=== PATIENT | female | born 1935 | race Caucasian/White ===

== ENCOUNTER 2016-10-19 11:19 | Day surgery (SDC) | payer MEDICARE ==
[2016-10-18 11:41] VITALS: BMI 21.4
[~2016-10-19 11:19] MED LIST: LACTATED RINGERS 1,000 ML IV SCH
[2016-10-19] MEDS ORDERED: LIDOCAINE 1% 20 ML VIAL (10MG/ML) FOR IV START INTRADERMA ONE (11:54)
[2016-10-19] MEDS ORDERED: ATROPINE SULFATE 0.4 MG/ML 1 ML VIAL IM ONE (11:55)
[2016-10-19 12:05] LABS: Glucose,Whole Blood 125 mg/dL (75-99)
[2016-10-19] MEDS ORDERED: LIDOCAINE 2% (PF) 20 MG/ML 10ML INHALATION STA (12:15)
[2016-10-19] MEDS ORDERED: ALBUTEROL NEBULIZED 2.5 MG/3 ML INHALATION STA (12:20)
[2016-10-19] MEDS ORDERED: LIDOCAINE 1% INJ 10MG/ML (20 ML MDV) ONE (12:37)
[2016-10-19] MEDS ORDERED: PROPOFOL 10 MG/ML 20 ML VIAL IV ONE (12:37)
[2016-10-19] MEDS ORDERED: LIDOCAINE 2% SYG (PF) 100 MG/5 ML MISCELLANE ONE (12:55)
[2016-10-19 13:12] VITALS: TEMP 98.2
[2016-10-19] MEDS ORDERED: LACTATED RINGERS 1,000 ML IV ONE (14:35)
[2016-10-19 14:48] VITALS: PULSE 62; RESP 16
[2016-10-19 15:07] VITALS: BP 122/64
[2016-10-19 15:17] LABS: Glucose,Whole Blood 97 mg/dL (75-99)
--- NOTE | 2016-10-20 08:42 | PCN ---
PROCEDURE NOTE PREOP DIAGNOSIS: Recurrent Pseudomonas pneumonia, rule out [place] syndrome. POSTOP DIAGNOSIS: Recurrent Pseudomonas pneumonia, rule out [place] syndrome. Procedure was done by Dr. Vegas and Dr. Amador. PROCEDURE: Bronchoscopy, airway examination, therapeutic lavage and BAL right middle lobe. There was universal time out. There was informed consent. The procedure was done in room #2. The BREASTER provided general anesthesia and unconscious sedation. After the patient was adequately sedated and being fully monitored, the bronchoscope was inserted through the right nostril. It passed through the right nasopharynx into the oropharynx. The hypopharynx was identified and topicalized. Some secretions were noted to be pooling in the hypopharynx. The anterior commissure, true cords, false cords, arytenoids, piriform sinuses, right and left vallecula, epiglottis and piriform sinuses, right, left epiglottis and the vallecula all appear normal. After topicalization, bronchoscope was passed through the glottic opening into the trachea. There were thick secretions noted throughout the trachea. They were yellow green in color. They were somewhat frothy. The trachea dandy was sharp. Right and left mainstem were topicalized. The right upper lobe and its 3 segments, the right middle lobe and its 2 segments, the right lower lobe and its 5 segments, the left upper lobe proper and its 2 segments, the lingual and its 2 segments and the left lower lobe are its 4 segments all have similar findings of diffuse moderate bronchitis. There was mucosal friability, hyperemia and erythema. Thick secretions were noted throughout both lungs and involved all segments. They were suctioned with some difficulty. Next, the bronchoscope was wedged into the right middle lobe. BAL was done. The patient tolerated the procedure well. Additional secretions were removed and suctioned. The bronchoscope withdrawn. The patient will be recovered. Secretions will be sent to the laboratory for analysis. MMODL / IJN: [id number] /
== END 2016-10-19 15:28 | disposition home or self-care (01) ==
LOC: ORWHC2ENDO 11:19
PROVIDERS: ATTEND Internal Medicine Critical Care Medicine
DX: J18.9 Pneumonia, unspecified organism (principal); J44.9 Chronic obstructive pulmonary disease, unspecified; Z87.01 Personal history of pneumonia (recurrent); K21.9 Gastro-esophageal reflux disease without esophagitis; I48.91 Unspecified atrial fibrillation; G62.9 Polyneuropathy, unspecified; E11.9 Type 2 diabetes mellitus without complications; Z88.1 Allergy status to other antibiotic agents; Z88.5 Allergy status to narcotic agent; Z88.0 Allergy status to penicillin; Z88.2 Allergy status to sulfonamides; Z88.8 Allergy status to other drugs, medicaments and biological substances; Z79.82 Long term (current) use of aspirin; Z79.84 Long term (current) use of oral hypoglycemic drugs; Z79.51 Long term (current) use of inhaled steroids; Z79.899 Other long term (current) drug therapy; Z87.891 Personal history of nicotine dependence; Z90.710 Acquired absence of both cervix and uterus
CPT/HCPCS: 94640; 87798 ×4; 87496; 87498; 87529 ×2; 88108; 88305; 87252; 87502 ×2; 87070; 87205; 87116; 87102; 87077; 87186; 87206; 31624; J0461; J2001 ×3; J2704

== ENCOUNTER 2016-10-26 09:30 | Day surgery (SDC) | payer MEDICARE ==
[2016-10-26 10:21] VITALS: PULSE 65
[2016-10-26] MEDS ORDERED: LIDOCAINE 2% INJ 20 MG/ML SQ ONE (10:39)
[2016-10-26] MEDS ORDERED: MEROPENEM 1 GM in SODIUM CHLORIDE 0.9% 100 ML IVPB STA (10:47)
--- NOTE | 2016-10-26 11:18 | IR ---
PICC LINE PLACEMENT: HISTORY: Infection requiring long-term antibiotic therapy PROCEDURE: Ultrasound and fluoroscopic guidance of PICC line placement. COMPLICATIONS: None ANESTHESIA: 1. 1% Lidocaine locally. FINDINGS/TECHNIQUE: The procedure was explained to the patient. The risks, complications, benefits and alternatives were discussed and any questions were answered. Informed consent was obtained. The patient was placed supine on the fluoroscopic table and prepped and draped in the usual sterile critical access hospital ion. Utilizing a 21 gauge needle and sonographic and fluoroscopic guidance, access in the vein was achieved and there is placement of a 0.018 guidewire. The vein is patent. A 4-F sheath was placed o bandar the guidewire. The guidewire and dilator were removed and a 4-F. PICC line was placed through th e sheath with the tip at the level of the SVC. The sheath was removed, the catheter was flushed and sutured into position. The patient was stable throughout the procedure and remained stable upon disc harge from the Department of Radiology. The vein puncture was patent under ultrasound. A merida scale image was obtained to document patency of the vein punctured. All elements of the maximal barrier technique were utilized. FLUOROSCOPY TIME: 0.2 minutes, one image provided IMPRESSION: Successful PICC line placement under ultrasound and fluoroscopic guidance.
[2016-10-26 12:24] VITALS: BP 141/67; RESP 18
== END 2016-10-26 12:30 | disposition home or self-care (01) ==
LOC: CATHCVL 09:30
PROVIDERS: ATTEND Radiology Diagnostic Radiology
DX: J18.9 Pneumonia, unspecified organism (principal); B96.5 Pseudomonas (aeruginosa) (mallei) (pseudomallei) as the cause of diseases classified elsewhere; J44.9 Chronic obstructive pulmonary disease, unspecified; I48.91 Unspecified atrial fibrillation; E11.40 Type 2 diabetes mellitus with diabetic neuropathy, unspecified; Z87.891 Personal history of nicotine dependence; Z79.891 Long term (current) use of opiate analgesic; Z79.51 Long term (current) use of inhaled steroids; Z79.899 Other long term (current) drug therapy; Z88.1 Allergy status to other antibiotic agents; Z88.5 Allergy status to narcotic agent; Z88.0 Allergy status to penicillin; Z88.2 Allergy status to sulfonamides; Z88.8 Allergy status to other drugs, medicaments and biological substances; Z91.09 Other allergy status, other than to drugs and biological substances
CPT/HCPCS: 36569; 76937; 77001; C1751; C1769; J2001; J2185

== ENCOUNTER 2017-10-23 11:28 | Day surgery (SDC) | payer MEDICARE ==
[2017-10-23 11:58] VITALS: RESP 18; TEMP 98
[2017-10-23] MEDS ORDERED: LIDOCAINE 1% INJ 10MG/ML (20 ML MDV) ONE (12:20)
[2017-10-23] MEDS ORDERED: LIDOCAINE 1% INJ 10MG/ML (20 ML MDV) SQ ONE (12:37)
[2017-10-23 13:05] VITALS: BP 143/60; PULSE 65
--- NOTE | 2017-10-23 13:20 | IR ---
PICC LINE PLACEMENT: HISTORY: Infection requiring long-term antibiotic therapy PROCEDURE: Ultrasound and fluoroscopic guidance of PICC line placement. COMPLICATIONS: None ANESTHESIA: 1. 1% Lidocaine locally. FINDINGS/TECHNIQUE: The procedure was explained to the patient. The risks, complications, benefits and alternatives were discussed and any questions were answered. Informed consent was obtained. The patient was placed supine on the fluoroscopic table and prepped and draped in the usual sterile fash ion. Utilizing a 21 gauge needle and sonographic and fluoroscopic guidance, access in the right bas ilic vein was achieved and there is placement of a 0.018 guidewire. The vein is patent. A 4-F. sharma th was placed over the guidewire. The guidewire and dilator were removed and a 4-F. PICC line was pl aced through the sheath with the tip at the level of the SVC. The sheath was removed, the catheter w as flushed and sutured into position. The patient was stable throughout the procedure and remained s table upon discharge from the Department of Radiology. The vein puncture was patent under ultrasound. A merida scale image was obtained to document patency of the vein punctured. All elements of the maximal barrier technique were utilized. FLUOROSCOPY TIME: 0.2 minute, one image submitted IMPRESSION: Successful PICC line placement under ultrasound and fluoroscopic guidance.
== END 2017-10-23 13:13 | disposition home or self-care (01) ==
LOC: CATHCVL 11:28
PROVIDERS: ATTEND Radiology Diagnostic Radiology
DX: A49.8 Other bacterial infections of unspecified site (principal); E11.40 Type 2 diabetes mellitus with diabetic neuropathy, unspecified; I48.91 Unspecified atrial fibrillation; J44.9 Chronic obstructive pulmonary disease, unspecified; Z87.891 Personal history of nicotine dependence; Z79.891 Long term (current) use of opiate analgesic; Z79.51 Long term (current) use of inhaled steroids; Z79.899 Other long term (current) drug therapy; Z88.1 Allergy status to other antibiotic agents; Z88.5 Allergy status to narcotic agent; Z88.0 Allergy status to penicillin; Z88.2 Allergy status to sulfonamides; Z88.8 Allergy status to other drugs, medicaments and biological substances; Z91.09 Other allergy status, other than to drugs and biological substances
CPT/HCPCS: 36569; 76937; 77001; C1751; C1769; J2001

== ENCOUNTER → 2019-03-06 | Outpatient (CLI) | payer MEDICARE ==
[2019-03-06 19:30] LABS: Albumin 4.3 g/dL (3.80-4.90); Albumin/Globulin Ratio 1.48 (1.60-3.17); Anion Gap 10.4 mmol/L (4.00-12.00); BUN/Creat Ratio 24.55 Ratio (12.00-20.00); Calcium 9.5 mg/dL (8.7-10.3); Carbon Dioxide 24.6 mmol/L (21.6-31.8); Globulin 2.9 g/dL (1.6-3.3); Non-African American GFR(CKD) 45.7 (60.0-200.0); Potassium 4.9 mmol/L (3.5-5.5); Total Bilirubin 0.3 mg/dL (0.2-1.2); Total Protein 7.2 g/dL (6.2-8.2)
== END | disposition home or self-care (01) ==
LOC: LABWHC1 12:53
PROVIDERS: ATTEND Internal Medicine Endocrinology, Diabetes & Metabolism
DX: E11.65 Type 2 diabetes mellitus with hyperglycemia (principal)
CPT/HCPCS: 36415; 80053; 84681

== ENCOUNTER 2020-08-30 16:27 | Inpatient (IN) | payer MEDICARE ==
--- NOTE | 2020-08-30 17:35 | ED ---
General Adult HPI - General Chief complaint: Recheck/Abnormal Lab/Rx Stated complaint: Oncology Time Seen by Provider: 08/30/20 16:33 Source: patient, family, EMS, RN notes reviewed Mode of arrival: EMS Limitations: no limitations - History of Present Illness Initial comments: Patient is a pleasant 85-year-old female transferred from [facility] with concerns for obstructing pancreatic duct. Patient does have history of breast cancer and is on oral chemotherapy that was prescribed in [place]. Patient over the past 3 days has been vomiting and significant decreased appetite. Patient did have some abdominal discomfort this morning. Patient is feeling fine at this time and has no complaints. There was CAT scan done some concern for possible pancreatic duct obstruction or neoplasm. Patient does have history of previous cholecystectomy many years ago. - Related Data Home Medications Medication Instructions Recorded Confirmed Budesonide/Formoterol Fumarate 2 puff INHALATION BID 10/18/16 10/23/17 [Symbicort 160-4.5 Mcg Inhaler] Ipratropium-Albuterol Nebulize 3 ml INHALATION QID PRN 10/18/16 10/23/17 [Duoneb 0.5 mg-3 mg/3 ml Soln] traMADol HCL [Ultram] 50 mg PO Q6HR PRN 10/18/16 10/23/17 Clotrimazole [place] [Mycelex 10 mg MUCOUS MEM TID 10/23/17 10/23/17 [place]] Digoxin [Lanoxin] 125 mcg PO HS 10/23/17 10/23/17 Metoprolol Tartrate [Lopressor] 12.5 mg PO DAILY 10/23/17 10/23/17 [place]-3 Fatty Acids/Fish Oil [Fish 1 each PO DAILY 10/23/17 10/23/17 Oil 1,000 mg Softgel] Pantoprazole [Protonix] 40 mg PO DAILY 10/23/17 10/23/17 Polyethylene Glycol 3350 [Miralax] 17 gm PO DAILY 10/23/17 10/23/17 Allergies Allergy/AdvReac Type Severity Reaction Status Date / Time trimethoprim [From Bactrim] Allergy Unknown Unknown Verified 10/27/16 19:44 zolpidem [From Ambien] Allergy Unknown Unknown Verified 10/27/16 19:44 clindamycin Allergy Unknown Verified 10/27/16 19:44 duloxetine [From Cymbalta] Allergy Unknown Verified 10/27/16 19:44 fluoxetine [From Prozac] Allergy Unknown Verified 10/27/16 19:44 haloperidol Allergy Unknown Verified 10/27/16 19:44 hydroxyzine [From Vistaril] Allergy Unknown Verified 10/27/16 19:44 levofloxacin [From Levaquin] Allergy Unknown Verified 10/27/16 19:44 lorazepam [From Ativan] Allergy Unknown Verified 10/27/16 19:44 Penicillins Allergy Unknown Verified 10/27/16 19:44 pregabalin [From Lyrica] Allergy Unknown Verified 10/27/16 19:44 streptomycin Allergy Unknown Verified 10/27/16 19:44 Sulfa (Sulfonamide Allergy Unknown Verified 10/27/16 19:44 Antibiotics) sulfamethoxazole Allergy Unknown Verified 10/27/16 19:44 [From Bactrim] Review of Systems ROS Statement: Those systems with pertinent positive or pertinent negative responses have been documented in the HPI. ROS Other: All systems not noted in ROS Statement are negative. Constitutional: Denies: fever Eyes: Denies: eye pain ENT: Denies: ear pain Respiratory: Denies: dyspnea Cardiovascular: Denies: chest pain Gastrointestinal: Reports: abdominal pain, nausea, vomiting. Denies: diarrhea, constipation Genitourinary: Denies: dysuria Musculoskeletal: Denies: back pain Past Medical History Past Medical History: Atrial Fibrillation, COPD, Diabetes Mellitus, GERD/Reflux, Hypertension, Memory Impairment, Pneumonia Additional Past Medical History / Comment(s): hx. of frequent pneumonia-last time in September, back pain, neuropathy History of Any Multi-Drug Resistant Organisms: None Reported Past Surgical History: Cholecystectomy, Joint Replacement, Orthopedic Surgery, Tubal Ligation Additional Past Surgical History / Comment(s): left hip replaced, ankle surg, cataract surg. Past Anesthesia/Blood Transfusion Reactions: No Reported Reaction Smoking Status: Former smoker Past Alcohol Use History: None Reported Past Drug Use History: None Reported - Past Family History Brother(s) Family Medical History: Cancer Father Family Medical History: Cancer General Exam Limitations: no limitations General appearance: alert Head exam: Present: normocephalic Eye exam: Present: normal appearance Neck exam: Present: normal inspection Respiratory exam: Present: normal lung sounds bilaterally Cardiovascular Exam: Present: regular rate, normal rhythm GI/Abdominal exam: Present: soft. Absent: tenderness Extremities exam: Present: normal inspection Neurological exam: Present: alert Psychiatric exam: Present: normal affect, normal mood Skin exam: Present: normal color Course Vital Signs 08/30/20 16:31 Temperature 98 F Pulse Rate 92 Respiratory 18 Rate Blood Pressure 172/83 O2 Sat by Pulse 95 Oximetry Medical Decision Making - Medical Decision Making Patient and family were updated. Case was discussed with Dr. Alvarez, who will admit covering for GI will be placed on consult. Disposition Clinical Impression: Vomiting Disposition: ADMITTED IP TO THIS HOSP Is patient prescribed a controlled substance at d/c from ED?: No Referrals: None,Stated [Primary Care Provider] - 1-2 days Decision Time: 17:40
[2020-08-30] MEDS ORDERED: ONDANSETRON 4 MG/2 ML VIAL IVP PRN (17:40)
[2020-08-30] MEDS ORDERED: NALOXONE 0.4 MG/ML 1 ML VIAL IV PRN (17:40)
[2020-08-30] MEDS: SODIUM CHLORIDE 0.9% 1,000 ML IV SCH (18:29)
[2020-08-30] MEDS ORDERED: MORPHINE SULFATE 2 MG/ML SYRINGE IVP STA (18:37)
[2020-08-31 01:03] LABS: Glucose,Whole Blood 103 mg/dL (75-99)
--- NOTE | 2020-08-31 02:05 | XR ---
EXAMINATION TYPE: XR chest 1V portable DATE OF EXAM: 08/31/2020 COMPARISON: Yesterday HISTORY: Cough TECHNIQUE: Single view FINDINGS: There is extensive coarse interstitial density in the lungs. Heart size is normal. Thoracic aorta is atheromatous. I see no heart failure. There is no pleural effusion. IMPRESSION: Pulmonary interstitial fibrosis without change. Pulmonary fibrosis has progressed compare d to older chest x-ray of 10/03/2016.
[2020-08-31] MEDS ORDERED: ACETAMINOPHEN IV (For NPO) 1,000 MG in EMPTY BAG 1 BAG IVPB PRN (03:00)
--- NOTE | 2020-08-31 03:14 | P.HPIM ---
History of Present Illness H&P Date: 08/31/20 The patient is an 85-year-old female with a PMH of type II DM, A. fib not on anticoagulation, recently diagnosed breast cancer currently on anastrozole (dx 05/2020 by oncologist in [place] - patient recently moved to [place] and has not established care), mild dementia, pulmonary fibrosis, and hyperlipidemia who was transferred from [facility] where she had presented earlier today with complaints of lethargy, anorexia, and vomiting. The patient was only oriented to self during the interview and thereby not able to provide any meaningful history. History obtained from the ED documentation and from the patient's daughter (Bibiana Santiago via phone at [phone]). The patient reportedly was seen at [facility] emergency room on 08/23 and was diagnosed with UTI and started on Levaquin. The patient however then gradually became lethargic, had difficulty eating due to inability to stay awake, and 1 episode of vomiting (bilious but non-bloody) the day prior to presentation. Following presentation at [facility] earlier today, she underwent an extensive evaluation with CT abd and pelvis with IV contrast showing nodularity of the left lung base with masses or pneumonia not excluded along with pancreatic duct abrupt cutoff at the head of the pancreas with follow-up imaging with MRCP versus ERCP recommended. Telemetry evaluation revealed a WBC count of 11.38, hemoglobin 12.8, platelets 292, sodium 134, potassium 4.7, chloride 99, CO2 22, glucose 189, BUN 35, creatinine 0.8, calcium 9.8, CK-MB 0.73, CPK 39, AST 24, ALT 15, alk phos 51, total bilirubin 0.4, albumin 4.4, lactic acid 2, lipase 52, magnesium 1.6, phosphorus 3.9, pro calcitonin 0.09, and troponin I of less than 0.012. EKG revealed sinus rhythm at 88 bpm. At time of evaluation, patient was able to state her own name and when asked if she was in pain, she would answer no. Review of systems: Unable to perform due to altered mental status Physical examination: General: non toxic, no distress, appears at stated age, normal weight Derm: no unusual rashes/lesions no unusual ecchymoses, warm, dry Head: atraumatic, normocephalic, symmetric Eyes: EOMI, no lid lag, anicteric sclera, pupils equal round reactive to light ENT: Nose and ears atraumatic, no thrush, no pharyngeal erythema Neck: No thyromegaly, no cervical lymphadenopathy, trachea midline, supple Mouth: no lip lesion, mucus membranes moist Cardiovascular: S1S2 reg, no murmur, positive posterior tibial pulse bilateral, no edema, capillary refill less than 2 seconds Lungs: CTA bilateral, no rhonchi, no rales , no accessory muscle use Abdominal: soft, nontender to palpation, no guarding, no appreciable organomegaly, normal bowel sounds Ext: no gross muscle atrophy, no contractures, strength 3/5 in all 4 extremities Neuro: Moving all extremities, no gross focal deficits noted Psych: Lethargic, oriented only to self Assessment/plan Lethargy, anorexia - may be due to underlying malignancy versus side effects of Levaquin -Hold off on Levaquin at this time -Oncology consulted -IV fluids -Concern for pulmonary metastasis based on CT findings Pancreatic duct cutoff, with concern for neoplasm -GI consulted for possible MRCP versus ERCP Chronic conditions: Type II DM, hyperlipidemia, pulmonary fibrosis -Hold oral hypoglycemics -Lispro insulin sliding scale and blood glucose monitoring -Continue home statin dose DVT prophylaxis -Heparin subq The patient is admitted with an anticipated less than 2 midnight stay for e valuation of lethargy CODE STATUS: Full Code Discussed with: Patient, Daughter Anticipated discharge date: in am Anticipated discharge place: Home Past Medical History Past Medical History: Atrial Fibrillation, COPD, Diabetes Mellitus, GERD/Reflux, Hypertension, Memory Impairment, Pneumonia Additional Past Medical History / Comment(s): hx. of frequent pneumonia-last time in September, back pain, neuropathy History of Any Multi-Drug Resistant Organisms: None Reported Past Surgical History: Cholecystectomy, Joint Replacement, Orthopedic Surgery, Tubal Ligation Additional Past Surgical History / Comment(s): left hip replaced, ankle surg, cataract surg. Past Anesthesia/Blood Transfusion Reactions: No Reported Reaction Smoking Status: Former smoker Past Alcohol Use History: None Reported Past Drug Use History: None Reported - Past Family History Brother(s) Family Medical History: Cancer Father Family Medical History: Cancer Medications and Allergies Home Medications Medication Instructions Recorded Confirmed Type Albuterol Nebulized [Ventolin 2.5 mg INHALATION Q6H PRN 08/30/20 08/30/20 History Nebulized] Anastrozole [Arimidex] 1 mg PO DAILY 08/30/20 08/30/20 History Atorvastatin [Lipitor] 20 mg PO DAILY@1300 08/30/20 08/30/20 History Fish Oil + Vitamin D3 360mg 1 tab PO DAILY 08/30/20 08/30/20 History Fluticasone/Umeclidin/Vilanter 1 puff INHALATION RT-DAILY 08/30/20 08/30/20 History [Treleismael Ellipta 100-62.5-25] Gabapentin [Neurontin] 600 mg PO TID 08/30/20 08/30/20 History Glimepiride [Amaryl] 3 mg PO DAILY@0100 08/30/20 08/30/20 History Hydrocortisone Cream 1 applic TOPICAL BID PRN 08/30/20 08/30/20 History [Hydrocortisone 1% Cream] Levofloxacin [Levaquin] 500 mg PO DAILY 08/30/20 08/30/20 History Vitamin E (Dl,Tocopheryl Acet) 400 unit PO DAILY@1200 08/30/20 08/30/20 History [Vitamin E (400 Iu = 180 mg)] metFORMIN HCL ER [Glucophage XR] 500 mg PO BID@0100,1300 08/30/20 08/30/20 History Allergies Allergy/AdvReac Type Severity Reaction Status Date / Time trimethoprim [From Bactrim] Allergy Unknown Unknown Verified 08/30/20 18:19 zolpidem [From Ambien] Allergy Unknown Unknown Verified 08/30/20 18:19 clindamycin Allergy Unknown Verified 08/30/20 18:19 duloxetine [From Cymbalta] Allergy Unknown Verified 08/30/20 18:19 fluoxetine [From Prozac] Allergy Unknown Verified 08/30/20 18:19 haloperidol Allergy Unknown Verified 08/30/20 18:19 hydroxyzine [From Vistaril] Allergy Unknown Verified 08/30/20 18:19 levofloxacin [From Levaquin] Allergy Unknown Verified 08/30/20 18:19 lorazepam [From Ativan] Allergy Unknown Verified 08/30/20 18:19 Penicillins Allergy Unknown Verified 08/30/20 18:19 pregabalin [From Lyrica] Allergy Unknown Verified 08/30/20 18:19 streptomycin Allergy Unknown Verified 08/30/20 18:19 Sulfa (Sulfonamide Allergy Unknown Verified 08/30/20 18:19 Antibiotics) sulfamethoxazole Allergy Unknown Verified 08/30/20 18:19 [From Bactrim] Physical Exam Vitals: Vital Signs Temp Pulse Pulse Resp BP BP Pulse Ox 08/30/20 20:00 99.5 F 67 16 155/88 94 L 08/30/20 18:26 84 18 171/88 08/30/20 16:31 98 F 92 18 172/83 95 Intake and Output 08/30/20 08/30/20 08/30/20 06:59 14:59 22:59 Other: Weight 49.895 kg
[2020-08-31 04:25] LABS: Basophils # (A) 0.1 k/uL (0-0.2); Basophils % (A) 1 %; Eosinophils # (A) 0.3 k/uL (0-0.7); Eosinophils % (A) 4 %; HCT 37.1 % (34.0-46.0); HGB 12.4 gm/dL (11.4-16.0); Lymphocytes % (A) 11 %; MCH 32.1 pg (25.0-35.0); MCHC 33.5 g/dL (31.0-37.0); MCV 95.7 fL (80.0-100.0); Mean Platelet Volume 7.5; Monocytes # (A) 0.8 k/uL (0-1.0); Monocytes % (A) 9 %; Neutrophils # (A) 6.1 k/uL (1.3-7.7); Neutrophils % (A) 71 %; Platelet Count 261 k/uL (150-450); RBC 3.88 m/uL (3.80-5.40); RDW 13.2 % (11.5-15.5); WBC 8.6 k/uL (3.8-10.6)
[2020-08-31 04:47] LABS: ALT 11 U/L (4-34); AST 23 U/L (14-36); African American GFR (CKD) >90 (>60 ml/min/1.73 sqM); Albumin 3.6 g/dL (3.5-5.0); Albumin/Globulin Ratio 1.2; Alkaline Phosphatase 50 U/L (38-126); Amylase 35 U/L (30-110); Anion Gap 10 mmol/L; Blood Urea Nitrogen 20 mg/dL (7-17); Calcium 8.7 mg/dL (8.4-10.2); Carbon Dioxide 21 mmol/L (22-30); Chloride 105 mmol/L (98-107); Glucose 95 mg/dL (74-99); Lipase 31 U/L (23-300); Non-African American GFR(CKD) 84 (>60 ml/min/1.73 sqM); Potassium 4.4 mmol/L (3.5-5.1); Sodium 136 mmol/L (137-145); Total Bilirubin 0.2 mg/dL (0.2-1.3); Total Protein 6.6 g/dL (6.3-8.2)
[2020-08-31] MEDS: SODIUM CHLORIDE 0.9% 1,000 ML IV SCH ×3 (05:15→22:14)
[2020-08-31] MEDS: IPRATROPIUM 0.5 MG/2.5 ML NEBU INHALATION SCH ×4 (07:34→19:35)
[2020-08-31] MEDS: SYMBICORT 80-4.5 MCG INHALER INHALATION SCH ×2 (07:34→19:35)
[2020-08-31 07:38] LABS: Glucose,Whole Blood 94 mg/dL (75-99)
[2020-08-31] MEDS: INSULIN ASPART (NovoLOG) 100 UNIT/ML VIAL SQ SCH ×4 (08:45→19:01)
[2020-08-31] MEDS: PANTOPRAZOLE 40 MG/10 ML VIAL IV SCH (08:56)
[2020-08-31] MEDS: HEPARIN SODIUM,PORCINE/PF 5,000 UNIT/0.5 ML SYRINGE SQ SCH ×3 (08:56→22:13)
[2020-08-31] MEDS: ANASTROZOLE 1 MG TAB PO SCH (11:03)
[2020-08-31] MEDS ORDERED: RX INFO: IV CONTRAST WAS GIVEN 1 EACH MISC MISCELLANE PRN (11:20)
[2020-08-31 11:58] LABS: Glucose,Whole Blood 91 mg/dL (75-99)
[2020-08-31] MEDS: ATORVASTATIN 20 MG TAB PO SCH (12:52)
[2020-08-31] MEDS ORDERED: IPRATROPIUM-ALBUTEROL 3 ML NEB INHALATION PRN (14:53)
--- NOTE | 2020-08-31 14:57 | P.PN ---
<Uziel Hidalgo - Last Filed: 08/31/20 14:35> Subjective Progress Note Date: 08/31/20 Hospital course: Patient is an 85-year-old female with a past medical history of type II non-in sulin-dependent diabetes mellitus, A. fib not on anticoagulation, recently diagnosed breast cancer currently on anastrozole (dx 05/2020 by oncologist in [place] and started on Anastrozole on 07/19/20- patient recently moved to [place] and has not established care), mild dementia, pulmonary fibrosis, and hyperlipidemia. Pt presented to the emergency department with a chief complaint of lethargy, anorexia, nausea, and vomiting. Patient had recent hospitalization at [facility] for lethargy and weakness from 08/23/20 through 08/25/20. Patient's daughter at bedside reports that since discharge from hospital her mother has further debilitated and has had continued lethargy and weakness acco mpanied by a decreased appetite, nausea, and vomiting. Patient's daughter reports that her mother was diagnosed with a UTI and started on Levaquin. CT abdomen and pelvis with IV contrast completed at [facility] reportedly revealed nodularity of the left lung base with masses or pneumonia not excluded along with pancreatic duct abrupt cutoff at the head of the pancreas with follow-up imaging with MRCP versus ERCP recommended. Patient admitted under our services with consultation to GI and oncology. Physical exam: Evaluated at the bedside. Patient lethargic but easily awoken. She is alert to self and place only, confused to time and situation and is a poor historian. She reports having generalized pain "all over", but denied having headache, chest pain, shortness of breath, or abdominal pain. Patient's daughter at bedside, had long discussion regarding CODE STATUS and patient's wishes. Patient's daughter states patient to remain full code per her wishes and family wishes. Vital signs reviewed and stable. General: Nontoxic, no acute distress noted, appears chronically ill Derm: Skin warm and dry, normal coloration for ethnicity. Head: Atraumatic, normocephalic and symmetric. Eyes: no lid lag, and anicteric sclera Mouth: no lip lesions, mucus membranes moist Cardiovascular: regular rate and rhythm with normal S1S2, no murmur, positive posterior tibial pulses bilaterally, and cap refill < 2 seconds. Lungs: Respirations even, regular, and unlabored on room air. Lungs with diffuse expiratory wheezes, no rhonchi, or no rales, and no accessory muscle usage. Abdominal: soft, nontender to palpation, no guarding, no appreciable organomega ly Ext: ROM intact. No gross muscle atrophy, no edema, no contractures Neuro: Speech clear, face symmetrical. Patient only following limited commands. Psych: Alert and oriented to person and place but confused to time and situation. Appropriate and pleasant affect. Assessment and Plan of Care: Failure to thrive with Lethargy and anorexia possibly secondary to underlying malignancy -Oncology consult placed to Dr. Miguel for concerns of metastatic process. -GI consult placed to Dr. Sinha secondary to reported CT findings of dilated pancreatic duct with concerns of obstruction. -Symptomatic care and pain management. -Gentle hydration with IV fluids Breast cancer with concerns of metastasis -Continue anastrozole pending further recommendations by oncology. -Consult to oncology. Dilated pancreatic duct with concerns of obstruction, reported incidental finding on imaging -GI consult placed to Dr. Sinha secondary to reported CT findings of dilated pancreatic duct with concerns of obstruction. Type II [id number] diabetes mellitus -Hold metformin and glimepiride and place patient on glycemic protocol with NovoLog sliding scale. Hyperlipidemia -Continue daily medication regimen with atorvastatin. Pulmonary fibrosis -Continue Symbicort -Duo nebs as needed for shortness of breath and/or wheezing -Oxygenation as needed to maintain SpO2 equal to or greater than 90%. CODE STATUS: Full code DVT prophylaxis: heparin Discussed with: patient's daughter and RN Anticipated discharge date: clinical course to determine Anticipated discharge place: home A total of 45 minutes was spent on the care of this complex patient more than 50% of the time was spent in counseling and care coordination. Objective - Vital Signs Vital signs: Vital Signs Temp 98.7 F 08/31/20 07:00 Pulse 74 08/31/20 08:53 Resp 20 08/31/20 08:53 BP 106/63 08/31/20 08:53 Pulse Ox 97 08/31/20 08:53 Intake & Output 08/30/20 08/31/20 08/31/20 18:59 06:59 18:59 Intake Total 180 Output Total 1450 Balance -1270 Weight 49.895 kg Intake: Intake, IV Titration 180 Amount Sodium Chloride 0.9% 1, 180 000 ml @ 90 mls/hr IV . Q11H7M RERE Rx#:[id number] Output: Urine 1450 Other: Voiding Method External Catheter - Labs CBC & Chem 7: 08/31/20 04:05 08/31/20 04:05 Labs: Abnormal Lab Results - Last 24 Hours (Table) 08/31/20 08/31/20 08/31/20 Range/Units 00:55 04:05 04:11 Sodium 136 L (137-145) mmol/L Carbon Dioxide 21 L (22-30) mmol/L BUN 20 H (7-17) mg/dL POC Glucose (mg/dL) 103 H (75-99) mg/dL Plasma Lactic Acid Oscar 0.6 L (0.7-2.0) mmol/L <Naz Alvarez - Last Filed: 08/31/20 18:57> Subjective Uziel Hidalgo NP rendered care for this patient independently, reviewed the findings and plan as documented in the note above. I did not physically speak with or examine the patient on this date. Await GI recommendations. MRI brain reviewed which appears negative for metastasis. CT chest reviewed which shows pulmonary lesions as well as hilar lymphadenopathy concerning for metastatic disease. Await oncology recommendations. Patient was unable to tolerate MRCP currently patient with normal bilirubin and liver enzymes which means likely nonobstructive process. Objective - Vital Signs Vital signs: Vital Signs Temp 98.2 F 08/31/20 14:58 Pulse 70 08/31/20 14:58 Resp 19 08/31/20 14:58 BP 139/81 08/31/20 14:58 Pulse Ox 95 08/31/20 14:58 Intake & Output 08/30/20 08/31/20 08/31/20 18:59 06:59 18:59 Intake Total 180 20 Output Total 1450 700 Balance -1270 -680 Weight 49.895 kg Intake: Intake, IV Titration 180 Amount Sodium Chloride 0.9% 1, 180 000 ml @ 90 mls/hr IV . Q11H7M RERE Rx#:[id number] Oral 20 Output: Urine 1450 700 Other: Voiding Method External Catheter External Catheter # Bowel Movements 1 - Labs CBC & Chem 7: 08/31/20 04:05 08/31/20 04:05 Labs: Abnormal Lab Results - Last 24 Hours (Table) 08/31/20 08/31/20 08/31/20 Range/Units 00:55 04:05 04:11 Sodium 136 L (137-145) mmol/L Carbon Dioxide 21 L (22-30) mmol/L BUN 20 H (7-17) mg/dL POC Glucose (mg/dL) 103 H (75-99) mg/dL Plasma Lactic Acid Oscar 0.6 L (0.7-2.0) mmol/L
--- NOTE | 2020-08-31 15:13 | MR ---
EXAMINATION TYPE: MR brain wo/w con DATE OF EXAM: 08/31/2020 COMPARISON: None HISTORY: Altered mental status. CONTRAST: Performed utilizing 5.5 mL intravenous Gadavist gadolinium contrast. TECHNIQUE: Multiplanar, multiecho imaging on a 3.0 Pepper magnet is performed through the brain. Stud y is performed within 24 hours of arrival to the hospital. The craniovertebral junction is normal. The pituitary is normal. Moderate diffuse atrophy appears t o be present. There is thinning of the corpus callosum. There is prominence of extra-axial spaces. Diffusion-weighted imaging is performed. No abnormal hyperintensity is present to suggest an acute i ntracranial infarct or acute ischemic change. Periventricular white matter hyperintensities present on inversion recovery weighted sequences, likel y on the basis of chronic white matter ischemic change. Ventricles and sulci are prominent for the patient age. No abnormal enhancement is evident IMPRESSIONS: 1. Atrophy with chronic periventricular white matter ischemic changes. 2. No suspicious acute intracranial process.
--- NOTE | 2020-08-31 16:05 | CT ---
EXAMINATION TYPE: CT chest w con DATE OF EXAM: 08/31/2020 COMPARISON: None HISTORY: ams, mets CT DLP: 443.2 mGycm, Automated exposure control for dose reduction was used. CONTRAST: Performed injected with 100 mL of Isovue 300. TECHNIQUE: Axial images were obtained at 5 mm thick sections. Reconstructed images are reviewed on Eko computer in the coronal plane. FINDINGS: Portion of the thyroid visualized is normal. There is peripheral consolidation measuring 5.3 x 2.0 cm lateral right apex. Series 4 image 13. This is nonspecific. Correlate for pneumonia. Underlying mass should be considered. There are additional areas of peripheral pneumonitis present. Reticular nodular pattern is in the rig ht lower lobe. A rounded nodular density adjacent to the pleural margin measuring 1.8 cm is present. Series 4 image 36. Consolidation or atelectasis is at the lingular base. The anterior upper left lung is an area of increased density could be mass or pneumonia. This measured 1.3 x 0.8 cm. Series 4 scooter ge 18. Follow-up is recommended. There is some posterior medial lung base increased densities. Multiple enlarged right hilar lymph nodes are present. The ascending aorta diameter at the level of the main pulmonary artery is 3.2 cm. The main pulmonary artery diameter at the bifurcation is 2.9 cm . Coronary artery calcification is present. Limited CT sections are obtained through the upper abdomen. Biliary air is present. IMPRESSIONS: 1. Scattered areas of increased density within the lung carranza bilaterally are nonspecific. Upper rosy g field densities could be related to masses or pneumonia. Neoplasm should be considered until proven otherwise. 2. Multiple enlarged right hilar lymph nodes. Reactive lymphadenopathy or metastasis should be consid ered.
--- NOTE | 2020-08-31 16:46 | P.CONS ---
History of Present Illness - Reason for Consult Consult date: 08/31/20 breast cancer Requesting physician: Johan Montalvo - Chief Complaint AMS - History of Present Illness Ms. Mosqueda is an very confused 85-year-old female recently diagnosed breast cancer 05/2020 by an Oncologist in [place]. All info taken from chart as pt is not able to recall her history and she is mildly agitated. Patient paperwork is at our office and she is due to see Dr. Miguel and establish Oncology care 09/15/20. She is currently on anastrozole. She has medical history documented of mild dementia, pulmonary fibrosis, and hyperlipidemia. She is a transfer from [facility] where she presented with complaints of lethargy, anorexia, and vomiting. 08/23 pt was diagnosed with UTI and started on Levaquin but she became more lethargic, vomited. CT AP nodularity of the left lung base with masses or pneumonia not excluded, pancreatic duct abrupt cutoff at the head of the pancreas with follow-up imaging with MRCP recommended. Review of Systems ROS unobtainable: due to mental status Past Medical History Past Medical History: Atrial Fibrillation, Cancer, COPD, Diabetes Mellitus, GERD/Reflux, Hypertension, Memory Impairment, Pneumonia Additional Past Medical History / Comment(s): hx. of frequent pneumonia-last time in September, back pain, neuropathy History of Any Multi-Drug Resistant Organisms: None Reported Past Surgical History: Cholecystectomy, Joint Replacement, Orthopedic Surgery, Tubal Ligation Additional Past Surgical History / Comment(s): left hip replaced, ankle surg, cataract surg. Past Anesthesia/Blood Transfusion Reactions: No Reported Reaction Smoking Status: Former smoker Past Alcohol Use History: None Reported Past Drug Use History: None Reported - Past Family History Brother(s) Family Medical History: Cancer Father Family Medical History: Cancer Medications and Allergies Home Medications Medication Instructions Recorded Confirmed Type Albuterol Nebulized [Ventolin 2.5 mg INHALATION Q6H PRN 08/30/20 08/30/20 History Nebulized] Anastrozole [Arimidex] 1 mg PO DAILY 08/30/20 08/30/20 History Atorvastatin [Lipitor] 20 mg PO DAILY@1300 08/30/20 08/30/20 History Fish Oil + Vitamin D3 360mg 1 tab PO DAILY 08/30/20 08/30/20 History Fluticasone/Umeclidin/Vilanter 1 puff INHALATION RT-DAILY 08/30/20 08/30/20 Hi story [Belinda Patterson 100-62.5-25] Gabapentin [Neurontin] 600 mg PO TID 08/30/20 08/30/20 History Glimepiride [Amaryl] 3 mg PO DAILY@0100 08/30/20 08/30/20 History Hydrocortisone Cream 1 applic TOPICAL BID PRN 08/30/20 08/30/20 History [Hydrocortisone 1% Cream] Levofloxacin [Levaquin] 500 mg PO DAILY 08/30/20 08/30/20 History Vitamin E (Dl,Tocopheryl Acet) 400 unit PO DAILY@1200 08/30/20 08/30/20 History [Vitamin E (400 Iu = 180 mg)] metFORMIN HCL ER [Glucophage XR] 500 mg PO BID@0100,1300 08/30/20 08/30/20 History Allergies Allergy/AdvReac Type Severity Reaction Status Date / Time trimethoprim [From Bactrim] Allergy Unknown Unknown Verified 08/30/20 18:19 zolpidem [From Ambien] Allergy Unknown Unknown Verified 08/30/20 18:19 clindamycin Allergy Unknown Verified 08/30/20 18:19 duloxetine [From Cymbalta] Allergy Unknown Verified 08/30/20 18:19 fluoxetine [From Prozac] Allergy Unknown Verified 08/30/20 18:19 haloperidol Allergy Unknown Verified 08/30/20 18:19 hydroxyzine [From Vistaril] Allergy Unknown Verified 08/30/20 18:19 levofloxacin [From Levaquin] Allergy Unknown Verified 08/30/20 18:19 lorazepam [From Ativan] Allergy Unknown Verified 08/30/20 18:19 Penicillins Allergy Unknown Verified 08/30/20 18:19 pregabalin [From Lyrica] Allergy Unknown Verified 08/30/20 18:19 streptomycin Allergy Unknown Verified 08/30/20 18:19 Sulfa (Sulfonamide Allergy Unknown Verified 08/30/20 18:19 Antibiotics) sulfamethoxazole Allergy Unknown Verified 08/30/20 18:19 [From Bactrim] Physical Exam Vitals: Vital Signs Temp Pulse Pulse Resp BP BP BP 08/31/20 08:53 74 20 106/63 08/31/20 08:00 20 08/31/20 07:43 118 H 08/31/20 07:34 112 H 08/31/20 07:00 98.7 F 120 H 19 144/72 08/31/20 02:00 99.5 F 125 H 18 121/81 08/31/20 01:27 100.7 F H 124 H 20 153/96 08/30/20 20:45 67 16 08/30/20 20:00 99.5 F 67 16 155/88 08/30/20 18:26 84 18 171/88 08/30/20 16:31 98 F 92 18 172/83 Pulse Ox 08/31/20 08:53 97 08/31/20 08:00 08/31/20 07:43 08/31/20 07:34 08/31/20 07:00 97 08/31/20 02:00 92 L 08/31/20 01:27 96 08/30/20 20:45 08/30/20 20:00 94 L 08/30/20 18:26 08/30/20 16:31 95 Intake and Output 08/30/20 08/31/20 08/31/20 22:59 06:59 14:59 Intake Total 180 Output Total 400 1050 Balance -220 -1050 Intake: Intake, IV Titration 180 Amount Sodium Chloride 0.9% 1, 180 000 ml @ 90 mls/hr IV . Q11H7M [facility] Rx#:[id number] Output: Urine 400 1050 Other: Voiding Method External Catheter External Catheter External Catheter Weight 49.895 kg - Constitutional General appearance: disheveled, mild distress, thin - EENT Eyes: anicteric sclerae, EOMI ENT: hearing grossly normal - Respiratory Respiratory: bilateral: CTA - Cardiovascular Rhythm: regular Heart sounds: normal: S1, S2 Abnormal Heart Sounds: no systolic murmur, no diastolic murmur, no rub, no S3 Gallop, no S4 Gallop, no click, no other leg Peripheral Edema: bilateral: None - Gastrointestinal General gastrointestinal: no absent bowel sounds, no decreased bowel sounds, no distended, no hepatomegaly, no hyperactive bowel sounds, normal bowel sounds, no organomegaly, no rigid, no scaphoid, soft, no splenomegaly, no tenderness, no umbilical hernia, no ventral hernia - Integumentary Integumentary: pale - Musculoskeletal Musculoskeletal: generalized weakness - Psychiatric Psychiatric: no A&O x's 3, no appropriate affect, no intact judgment & insight Results CBC & Chem 7: 08/31/20 04:05 08/31/20 04:05 Labs: Abnormal Lab Results - Last 24 Hours (Table) 08/31/20 08/31/20 08/31/20 Range/Units 00:55 04:05 04:11 Sodium 136 L (137-145) mmol/L Carbon Dioxide 21 L (22-30) mmol/L BUN 20 H (7-17) mg/dL POC Glucose (mg/dL) 103 H (75-99) mg/dL Plasma Lactic Acid Oscar 0.6 L (0.7-2.0) mmol/L CT scan - abdomen: report reviewed CT scan - pelvis: report reviewed Assessment and Plan (1) Breast cancer Narrative/Plan: MRCP ordered for pancreatic findings on CT AP. patient unable to t olerate, not performed MRI of the head requested-AMS. Nuclear medicine bone scan and CT of the chest to complete staging. Tumor markers have been ordered. Continue anastrozole We will follow up with the family when we have additional information. Current Visit: Yes Status: Acute Code(s): C50.919 - MALIGNANT NEOPLASM OF UNSP SITE OF UNSPECIFIED FEMALE BREAST SNOMED Code(s): 915373646 Plan: Doctor attests: I performed a history and physical examination of this patient, developed impression and plan of care, discussed with dictator. I agree with dictators note, documented as a scribe.
[2020-08-31 17:18] LABS: Glucose,Whole Blood 82 mg/dL (75-99)
[2020-08-31 20:23] LABS: Glucose,Whole Blood 77 mg/dL (75-99)
[2020-09-01 07:03] LABS: Glucose,Whole Blood 66 mg/dL (75-99)
[2020-09-01] MEDS: IPRATROPIUM 0.5 MG/2.5 ML NEBU INHALATION SCH ×4 (07:34→19:05)
[2020-09-01] MEDS: SYMBICORT 80-4.5 MCG INHALER INHALATION SCH ×2 (07:34→19:05)
[2020-09-01] MEDS: INSULIN ASPART (NovoLOG) 100 UNIT/ML VIAL SQ SCH (07:35)
[2020-09-01] MEDS: PANTOPRAZOLE 40 MG/10 ML VIAL IV SCH (08:14)
[2020-09-01] MEDS: HEPARIN SODIUM,PORCINE/PF 5,000 UNIT/0.5 ML SYRINGE SQ SCH ×2 (08:14→16:31)
[2020-09-01] MEDS: ANASTROZOLE 1 MG TAB PO SCH (08:14)
[2020-09-01 08:19] LABS: Glucose,Whole Blood 95 mg/dL (75-99)
--- NOTE | 2020-09-01 09:03 | P.PN ---
Subjective Progress Note Date: 09/01/20 Principal diagnosis: abnormal CT, lethargy 85-year-old female who presented to the emergency department as a transfer from [facility] for complaints of decreased appetite, weakness, and lethargy. Patient was recently diagnosed with breast cancer in May of this year and started on oral chemotherapy. She moved to [place] from [place] and had not established with a PCP or oncologist. As part of her workup at [facility] she had a CT of the abdomen and pelvis that showed a possible pancreatic duct obstruction. Patient's pancreatic and liver enzymes have been normal to date. She is denying any abdominal pain, nausea, or vomiting. Objective - Vital Signs Vital signs: Vital Signs Temp 99.2 F 09/01/20 07:00 Pulse 84 09/01/20 07:43 Resp 20 09/01/20 07:00 BP 124/70 09/01/20 07:00 Pulse Ox 92 L 09/01/20 07:00 Intake & Output 08/31/20 09/01/20 09/01/20 18:59 06:59 18:59 Intake Total 20 180 Output Total 700 400 Balance -680 -400 180 Intake: Oral 20 180 Output: Urine 700 400 Other: Voiding Method External Catheter External Catheter # Voids 3 # Bowel Movements 1 - Exam General appearance: The patient is alert, oriented, appears in no acute distress. HET: Head is normocephalic and atraumatic. Conjunctiva pink. Sclera anicteric. Neck: Supple without lymphadenopathy. Abdomen: Soft, diffuse tenderness, nondistended with bowel sounds. No guarding or rigidity. Extremities: Normal skin color and turgor. No pedal edema Skin: No rashes, no jaundice Neurological: No focal deficits. Alert and oriented 2. - Labs CBC & Chem 7: 08/31/20 04:05 08/31/20 04:05 Labs: Abnormal Lab Results - Last 24 Hours (Table) 09/01/20 Range/Units 07:01 POC Glucose (mg/dL) 66 L (75-99) mg/dL Microbiology - Last 24 Hours (Table) 08/31/20 04:05 Blood Culture - Preliminary Blood No Growth after 24 hours Assessment and Plan (1) Abnormality of pancreatic duct Narrative/Plan: 85-year-old female who was transferred from [facility] with initial complaints of decreased appetite weakness and lethargy who was recently diagnosed in May of this year with breast cancer in [place] and has been on oral chemotherapy. As part of her workup at [facility] she had a CT of the abdomen and pelvis showed possible pancreatic duct obstruction. Patient denies any abdominal pain, nausea, or vomiting. Pancreatic enzymes and liver enzymes have been normal to date. No previous liver or pancreas disease. 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 Continue symptomatic and supportive care 2. Oncology on consult 3. MRI of pancreas/MRCP ordered 4. Monitor labs closely 5. Antiemetics as needed 6. May have clear liquid diet Thank you for this consultation, we'll continue to follow. Dr. Kristine Sinha I agree with the dictator's note, documented as a scribe by Merari Smith.
[2020-09-01 10:41] LABS: HCT 35.9 % (37.2-46.3); HGB 11.3 g/dL (12.0-15.0); MCH 30.4 pg (27.0-32.0); MCHC 31.5 g/dL (32.0-37.0); MCV 96.5 fL (80.0-97.0); Mean Platelet Volume 10.1 fL (9.5-12.2); Platelet Count 259 X 10*3/uL (140-440); RBC 3.72 X 10*6/uL (4.10-5.20); RDW 13.1 % (11.5-14.5); WBC 7.58 X 10*3/uL (4.50-10.00)
[2020-09-01] MEDS: ATORVASTATIN 20 MG TAB PO SCH (11:52)
[2020-09-01] MEDS ORDERED: ACETAMINOPHEN TAB 325 MG TAB PO PRN (12:00)
[2020-09-01 12:11] LABS: Glucose,Whole Blood 102 mg/dL (75-99)
[2020-09-01 12:16] LABS: African American GFR (CKD) 95.7 (60.0-200.0); Anion Gap 12.5 mmol/L (4.00-12.00); Calcium 8.6 mg/dL (8.7-10.3); Carbon Dioxide 19.5 mmol/L (21.6-31.8); Magnesium 1.5 mg/dL (1.5-2.4); Non-African American GFR(CKD) 82.5 (60.0-200.0); Potassium 4.1 mmol/L (3.5-5.5)
[2020-09-01] MEDS: MORPHINE SULFATE 2 MG/ML SYRINGE IVP PRN (12:59)
--- NOTE | 2020-09-01 13:16 | P.PN ---
Subjective Progress Note Date: 09/01/20 Principal diagnosis: vomiting, recent breast cancer diagnosis-patient just moved here in follow-up patient remains confused. She does confirm that she has breast cancer, she has been taking a pill, she does not know the stage or if she was ever told that she has disease elsewhere. The MRI of the brain I told her was negative, her tumor markers were also normal. The CT of the chest did show mediastinal lymphadenopathy and lung findings are being called out as pneumonia versus metastases. Patient states pain in the low back area from laying. She denies nausea, difficulty in breathing or hunger. Objective - Vital Signs Vital signs: Vital Signs Temp 99.2 F 09/01/20 07:00 Pulse 84 09/01/20 07:43 Resp 20 09/01/20 07:00 BP 124/70 09/01/20 07:00 Pulse Ox 92 L 09/01/20 07:00 Intake & Output 08/31/20 09/01/20 09/01/20 18:59 06:59 18:59 Intake Total 20 180 Output Total 700 400 Balance -680 -400 180 Intake: Oral 20 180 Output: Urine 700 400 Other: Voiding Method External Catheter External Catheter External Catheter # Voids 3 # Bowel Movements 1 - Constitutional General appearance: Present: cooperative, no acute distress, thin - EENT Eyes: Present: anicteric sclerae, EOMI ENT: Present: hearing grossly normal - Respiratory Respiratory: bilateral: diminished (weak inspiratory effort) - Cardiovascular Rhythm: regular Heart sounds: normal: S1, S2 Abnormal Heart Sounds: Absent: systolic murmur, diastolic murmur, rub, S3 Gallop, S4 Gallop, click, other - Peripheral edema leg Peripheral Edema: bilateral: None - Gastrointestinal General gastrointestinal: Present: normal bowel sounds, soft - Neurologic Neurologic: Present: CNII-XII intact - Musculoskeletal Musculoskeletal: Present: generalized weakness - Psychiatric Psychiatric Comment(s): unable to recall important medical history Psychiatric: Present: A&O x's 3, appropriate affect - Labs CBC & Chem 7: 09/01/20 04:55 09/01/20 04:55 Labs: Abnormal Lab Results - Last 24 Hours (Table) 09/01/20 09/01/20 09/01/20 Range/Units 04:55 04:55 07:01 RBC 3.72 L (4.10-5.20) X 10*6/uL Hgb 11.3 L (12.0-15.0) g/dL Hct 35.9 L (37.2-46.3) % MCHC 31.5 L (32.0-37.0) g/dL Carbon Dioxide 19.5 L (21.6-31.8) mmol/L Anion Gap 12.50 H (4.00-12.00) mmol/L BUN/Creatinine Ratio 30.00 H (12.00-20.00) Ratio Glucose 59 L (70-110) mg/dL POC Glucose (mg/dL) 66 L (75-99) mg/dL Calcium 8.6 L (8.7-10.3) mg/dL 09/01/20 Range/Units 11:58 RBC (4.10-5.20) X 10*6/uL Hgb (12.0-15.0) g/dL Hct (37.2-46.3) % MCHC (32.0-37.0) g/dL Carbon Dioxide (21.6-31.8) mmol/L Anion Gap (4.00-12.00) mmol/L BUN/Creatinine Ratio (12.00-20.00) Ratio Glucose (70-110) mg/dL POC Glucose (mg/dL) 102 H (75-99) mg/dL Calcium (8.7-10.3) mg/dL Microbiology - Last 24 Hours (Table) 08/31/20 04:05 Blood Culture - Preliminary Blood No Growth after 24 hours - Imaging and Cardiology CT scan - chest: report reviewed MRI - head: report reviewed Assessment and Plan (1) Breast cancer Narrative/Plan: MRCP ordered for pancreatic findings on CT AP. patient unable to tolerate, not performed. MRI of the head-no evidence of metastasis, reviewed report with patient. Her altered mental status/confusion is stable, maybe a little better than yesterday, patient does seem to be a little more alert. Nuclear medicine bone scan still pending CT of the chest Showing mediastinal lymphadenopathy, areas in the lung are being reported as pneumonia versus metastasis. Reviewed this with the patient Tumor markers are within normal defined limits. Reviewed with the patient Patient is unsure if she was told she has metastatic disease, there were still some reports that we were requesting from patient's diagnosing Oncologist. Based on staging studies done here patient appears to have at least mediastinal lymph nodes involved and quite possibly lung mets. We will contact the daughter and discuss patient's case. Current Visit: Yes Status: Acute Code(s): C50.919 - MALIGNANT NEOPLASM OF UNSP SITE OF UNSPECIFIED FEMALE BREAST SNOMED Code(s): 060357332
--- NOTE | 2020-09-01 13:44 | P.PN ---
Subjective Progress Note Date: 09/01/20 Pt still week and nauseous. Shes c/o back pain, which is new for her. Pending bone scan. Could not complete MRCP. Objective - Vital Signs Vital signs: Vital Signs Temp 99.2 F 09/01/20 07:00 Pulse 84 09/01/20 07:43 Resp 20 09/01/20 07:00 BP 124/70 09/01/20 07:00 Pulse Ox 92 L 09/01/20 07:00 Intake & Output 08/31/20 09/01/20 09/01/20 18:59 06:59 18:59 Intake Total 20 180 Output Total 700 400 Balance -680 -400 180 Intake: Oral 20 180 Output: Urine 700 400 Other: Voiding Method External Catheter External Catheter External Catheter # Voids 3 # Bowel Movements 1 - Exam Gen: awake, alert HEENT: normocephalic, atraumatic, good hearing acuity, moist mucous membranes Resp: good air exchange, breathing comfortably with no accessory muscle use CVS: good distal perfusion x 4, GI: soft, NTTP, ND : no SPT, no CVAT, vieira catheter not present MSK: no pitting edema, no clubbing Neuro: non-focal, moving all extremities Psych: cooperative, euthymic mood - Labs CBC & Chem 7: 09/01/20 04:55 09/01/20 04:55 Labs: Abnormal Lab Results - Last 24 Hours (Table) 09/01/20 09/01/20 09/01/20 Range/Units 04:55 04:55 07:01 RBC 3.72 L (4.10-5.20) X 10*6/uL Hgb 11.3 L (12.0-15.0) g/dL Hct 35.9 L (37.2-46.3) % MCHC 31.5 L (32.0-37.0) g/dL Carbon Dioxide 19.5 L (21.6-31.8) mmol/L Anion Gap 12.50 H (4.00-12.00) mmol/L BUN/Creatinine Ratio 30.00 H (12.00-20.00) Ratio Glucose 59 L (70-110) mg/dL POC Glucose (mg/dL) 66 L (75-99) mg/dL Calcium 8.6 L (8.7-10.3) mg/dL 09/01/20 Range/Units 11:58 RBC (4.10-5.20) X 10*6/uL Hgb (12.0-15.0) g/dL Hct (37.2-46.3) % MCHC (32.0-37.0) g/dL Carbon Dioxide (21.6-31.8) mmol/L Anion Gap (4.00-12.00) mmol/L BUN/Creatinine Ratio (12.00-20.00) Ratio Glucose (70-110) mg/dL POC Glucose (mg/dL) 102 H (75-99) mg/dL Calcium (8.7-10.3) mg/dL Microbiology - Last 24 Hours (Table) 08/31/20 04:05 Blood Culture - Preliminary Blood No Growth after 24 hours Assessment and Plan Assessment: Failure to thrive with Lethargy and anorexia possibly secondary to underlying malignancy -Oncology consult placed to Dr. Miguel for concerns of metastatic process. -GI consult placed to Dr. Sinha secondary to reported CT findings of dilated pancreatic duct with concerns of obstruction. -Symptomatic care and pain management. -Gentle hydration with IV fluids Breast cancer with concerns of metastasis -Continue anastrozole pending further recommendations by oncology. -Consult to oncology. Dilated pancreatic duct with concerns of obstruction, reported incidental finding on imaging -GI consult placed to Dr. Sinha secondary to reported CT findings of dilated pancreatic duct with concerns of obstruction. Type II [id number] diabetes mellitus -Hold metformin and glimepiride and place patient on glycemic protocol with NovoLog sliding scale. Hyperlipidemia -Continue daily medication regimen with atorvastatin. Pulmonary fibrosis -Continue Symbicort -Duo nebs as needed for shortness of breath and/or wheezing -Oxygenation as needed to maintain SpO2 equal to or greater than 90%. CODE STATUS: Full code DVT prophylaxis: heparin Discussed with: patient's daughter and RN Anticipated discharge date: clinical course to determine Anticipated discharge place: home
--- NOTE | 2020-09-01 14:06 | NM ---
EXAMINATION TYPE: NM bone scan whole body DATE OF EXAM: 09/01/2020 COMPARISON: NONE HISTORY: Acute mental status changes Delayed whole-body scanning was performed following the injection of 23.5 mCi Tc 99m MDP. Images acq uired 5 hours post injection. FINDINGS: There is a focus of radiotracer accumulation along the anterior left 10th rib region most likely post traumatic in nature. Extensive contaminations below the level pelvis. No suspicious focal uptake to suggest metastatic process is evident. Scoliosis and kyphosis thoracic spine. IMPRESSION: Findings at the anterior left 10th rib lesion most likely posttraumatic in nature.
[2020-09-01] MEDS: SODIUM CHLORIDE 0.9% 1,000 ML IV SCH (15:26)
[2020-09-01 16:53] LABS: Glucose,Whole Blood 94 mg/dL (75-99)
[2020-09-01 20:25] LABS: Glucose,Whole Blood 253 mg/dL (75-99)
[2020-09-02] MEDS: HEPARIN SODIUM,PORCINE/PF 5,000 UNIT/0.5 ML SYRINGE SQ SCH ×4 (01:36→23:22)
[2020-09-02] MEDS: SODIUM CHLORIDE 0.9% 1,000 ML IV SCH ×3 (01:53→21:42)
[2020-09-02 07:44] LABS: Glucose,Whole Blood 110 mg/dL (75-99)
[2020-09-02] MEDS: ANASTROZOLE 1 MG TAB PO SCH (08:21)
[2020-09-02] MEDS: PANTOPRAZOLE 40 MG/10 ML VIAL IV SCH (08:21)
[2020-09-02] MEDS: IPRATROPIUM 0.5 MG/2.5 ML NEBU INHALATION SCH ×4 (08:34→20:11)
[2020-09-02] MEDS: SYMBICORT 80-4.5 MCG INHALER INHALATION SCH ×2 (08:34→20:11)
[2020-09-02] MEDS ORDERED: ARTIFICIAL TEARS-HYPROMELLOSE DROPS 15 ML BTL RIGHT EYE PRN (09:18)
[2020-09-02] MEDS ORDERED: LORazepam 2 MG/ML INJ IV STA (11:04)
[2020-09-02] MEDS ORDERED: LORazepam 2 MG/ML INJ IV PRN ×4 (11:05→11:08)
--- NOTE | 2020-09-02 11:10 | P.PN ---
Subjective Progress Note Date: 09/02/20 Pt having some eye watering and pain today. Did not tolerate MRCP before, will try again today with additional anxiolytic. Objective - Vital Signs Vital signs: Vital Signs Temp 98.2 F 09/02/20 07:00 Pulse 80 09/02/20 08:48 Resp 20 09/02/20 07:00 BP 117/74 09/02/20 07:00 Pulse Ox 88 L 09/02/20 07:00 Intake & Output 09/01/20 09/02/20 09/02/20 18:59 06:59 18:59 Intake Total 180 Balance 180 Intake: Oral 180 Other: Voiding Method External Catheter External Catheter External Catheter # Voids 1 3 # Bowel Movements 2 - Exam Gen: awake, alert HEENT: normocephalic, atraumatic, good hearing acuity, moist mucous membranes Resp: good air exchange, breathing comfortably with no accessory muscle use CVS: good distal perfusion x 4, GI: soft, NTTP, ND : no SPT, no CVAT, vieira catheter not present MSK: no pitting edema, no clubbing Neuro: non-focal, moving all extremities Psych: cooperative, euthymic mood - Labs CBC & Chem 7: 09/01/20 04:55 09/01/20 04:55 Labs: Abnormal Lab Results - Last 24 Hours (Table) 09/01/20 09/01/20 09/01/20 Range/Units 04:55 11:58 20:23 Carbon Dioxide 19.5 L (21.6-31.8) mmol/L Anion Gap 12.50 H (4.00-12.00) mmol/L BUN/Creatinine Ratio 30.00 H (12.00-20.00) Ratio Glucose 59 L (70-110) mg/dL POC Glucose (mg/dL) 102 H 253 H (75-99) mg/dL Calcium 8.6 L (8.7-10.3) mg/dL 09/02/20 Range/Units 07:25 Carbon Dioxide (21.6-31.8) mmol/L Anion Gap (4.00-12.00) mmol/L BUN/Creatinine Ratio (12.00-20.00) Ratio Glucose (70-110) mg/dL POC Glucose (mg/dL) 110 H (75-99) mg/dL Calcium (8.7-10.3) mg/dL Microbiology - Last 24 Hours (Table) 08/31/20 04:05 Blood Culture - Preliminary Blood No Growth after 48 hours Assessment and Plan Assessment: Failure to thrive with Lethargy and anorexia possibly secondary to underlying malignancy -Oncology consult placed to Dr. Miguel for concerns of metastatic process. -GI consult placed to Dr. Sinha secondary to reported CT findings of dilated pancreatic duct with concerns of obstruction. -Symptomatic care and pain management. -Gentle hydration with IV fluids Breast cancer with concerns of metastasis -Continue anastrozole pending further recommendations by oncology. -Consult to oncology. Dilated pancreatic duct with concerns of obstruction, reported incidental finding on imaging -GI consult placed to Dr. Sinha secondary to reported CT findings of dilated pancreatic duct with concerns of obstruction. Type II [id number]-hqrziqjck diabetes mellitus -Hold metformin and glimepiride and place patient on glycemic protocol with NovoLog sliding scale. Hyperlipidemia -Continue daily medication regimen with atorvastatin. Pulmonary fibrosis -Continue Symbicort -Duo nebs as needed for shortness of breath and/or wheezing -Oxygenation as needed to maintain SpO2 equal to or greater than 90%. CODE STATUS: Full code DVT prophylaxis: heparin Discussed with: patient's daughter and RN Anticipated discharge date: clinical course to determine Anticipated discharge place: home
[2020-09-02 11:40] LABS: Glucose,Whole Blood 122 mg/dL (75-99)
[2020-09-02] MEDS: ATORVASTATIN 20 MG TAB PO SCH (13:01)
--- NOTE | 2020-09-02 13:56 | P.PN ---
Subjective Progress Note Date: 09/02/20 Principal diagnosis: abnormal CT, lethargy 85-year-old female who presented to the emergency department as a transfer from [facility] for complaints of decreased appetite, weakness, and lethargy. Patient was recently diagnosed with breast cancer in May of this year and started on oral chemotherapy. She moved to [place] from [place] and had not established with a PCP or oncologist. As part of her workup at [facility] she had a CT of the abdomen and pelvis that showed a possible pancreatic duct obstruction. Patient's pancreatic and liver enzymes have been normal to date. She is denying any abdominal pain, nausea, or vomiting. Yesterday the patient underwent a bone scan and tred to have MRI/MRCP done however patient was unable to cooperate through the test and refused proceeding. Liver enzymes still pending from today. Objective - Vital Signs Vital signs: Vital Signs Temp 98.2 F 09/02/20 07:00 Pulse 80 09/02/20 08:48 Resp 20 09/02/20 07:00 BP 117/74 09/02/20 07:00 Pulse Ox 88 L 09/02/20 07:00 Intake & Output 09/01/20 09/02/20 09/02/20 18:59 06:59 18:59 Intake Total 180 Balance 180 Intake: Oral 180 Other: Voiding Method External Catheter External Catheter External Catheter # Voids 1 3 # Bowel Movements 2 - Exam General appearance: The patient is alert, oriented, appears in no acute distress. HET: Head is normocephalic and atraumatic. Conjunctiva pink. Sclera anicteric. Neck: Supple without lymphadenopathy. Abdomen: Soft, nontender, nondistended with bowel sounds. No guarding or rigidity. Extremities: Normal skin color and turgor. No pedal edema Skin: No rashes, no jaundice Neurological: No focal deficits. Alert and oriented 2. - Labs CBC & Chem 7: 09/01/20 04:55 09/01/20 04:55 Labs: Abnormal Lab Results - Last 24 Hours (Table) 09/01/20 09/01/20 09/01/20 Range/Units 04:55 04:55 11:58 RBC 3.72 L (4.10-5.20) X 10*6/uL Hgb 11.3 L (12.0-15.0) g/dL Hct 35.9 L (37.2-46.3) % MCHC 31.5 L (32.0-37.0) g/dL Carbon Dioxide 19.5 L (21.6-31.8) mmol/L Anion Gap 12.50 H (4.00-12.00) mmol/L BUN/Creatinine Ratio 30.00 H (12.00-20.00) Ratio Glucose 59 L (70-110) mg/dL POC Glucose (mg/dL) 102 H (75-99) mg/dL Calcium 8.6 L (8.7-10.3) mg/dL 09/01/20 09/02/20 Range/Units 20:23 07:25 RBC (4.10-5.20) X 10*6/uL Hgb (12.0-15.0) g/dL Hct (37.2-46.3) % MCHC (32.0-37.0) g/dL Carbon Dioxide (21.6-31.8) mmol/L Anion Gap (4.00-12.00) mmol/L BUN/Creatinine Ratio (12.00-20.00) Ratio Glucose (70-110) mg/dL POC Glucose (mg/dL) 253 H 110 H (75-99) mg/dL Calcium (8.7-10.3) mg/dL Microbiology - Last 24 Hours (Table) 08/31/20 04:05 Blood Culture - Preliminary Blood No Growth after 48 hours Assessment and Plan (1) Abnormality of pancreatic duct Narrative/Plan: 85-year-old female who was transferred from [facility] with initial complaints of decreased appetite weakness and lethargy who was recently diagnosed in May of this year with breast cancer in [place] and has been on oral chemotherapy. As part of her workup at [facility] she had a CT of the abdomen and pelvis showed possible pancreatic duct obstruction. Patient denies any abdominal pain, nausea, or vomiting. Pancreatic enzymes and liver enzymes have been normal to date. No previous liver or pancreas disease. Current Visit: Yes Status: Acute Code(s): Q45.3 - OTH CONGENITAL MALFORMATIONS OF PANCREAS AND PANCREATIC DUCT SNOMED Code(s): 191584211 Plan: 1. Continue symptomatic and supportive care 2. Oncology on consult 3. MRI of pancreas/MRCP ordered however patient unable to complete test. 4. Monitor labs closely 5. Antiemetics as needed 6. Advanced to regular diet Patient unable to complete MRI of the pancreas/MRCP. On admission patient did not have any elevation in her pancreatic or liver enzymes. The questionable pancreatic duct obstruction can be followed up with oncology. May consider outpatient open MRI. Thank you for this consultation, we will sign off at this time. Dr. Kristine Sinha I agree with the dictator's note, documented as a scribe by Merari LLAMAS .
[2020-09-02] MEDS: GABAPENTIN 300 MG CAP PO SCH ×2 (16:57→21:43)
[2020-09-02 17:21] LABS: Glucose,Whole Blood 182 mg/dL (75-99)
--- NOTE | 2020-09-02 18:04 | P.PN ---
Subjective Progress Note Date: 09/02/20 Principal diagnosis: vomiting, recent breast cancer diagnosis-patient just moved here In follow-up patient remains confused, maybe slightly better, certainly is not worse. Daughter is at the bedside today. Patient states pain in the low back area from laying, sometimes under the ribs. She denies nausea, difficulty in breathing or hunger. Objective - Vital Signs Vital signs: Vital Signs Temp 97.8 F 09/02/20 14:44 Pulse 80 09/02/20 16:02 Resp 20 09/02/20 14:44 BP 146/73 09/02/20 14:44 Pulse Ox 98 09/02/20 14:44 Intake & Output 09/01/20 09/02/20 09/02/20 18:59 06:59 18:59 Intake Total 180 180 Balance 180 180 Intake: Oral 180 180 Other: Voiding Method External Catheter External Catheter External Catheter # Voids 1 3 1 # Bowel Movements 2 1 - Constitutional General appearance: Present: cooperative, no acute distress, thin - EENT Eyes: Present: anicteric sclerae, EOMI ENT: Present: hearing grossly normal - Musculoskeletal Musculoskeletal: Present: generalized weakness - Labs CBC & Chem 7: 09/01/20 04:55 09/01/20 04:55 Labs: Abnormal Lab Results - Last 24 Hours (Table) 09/01/20 09/02/20 09/02/20 Range/Units 20:23 07:25 11:38 POC Glucose (mg/dL) 253 H 110 H 122 H (75-99) mg/dL 09/02/20 Range/Units 17:10 POC Glucose (mg/dL) 182 H (75-99) mg/dL Microbiology - Last 24 Hours (Table) 08/31/20 04:05 Blood Culture - Preliminary Blood No Growth after 48 hours - Imaging and Cardiology nuclear medicine bone scan report reviewed Assessment and Plan (1) Breast cancer Narrative/Plan: MRCP ordered for pancreatic findings on CT AP. Patient unable to tolerate earlier this week due to agitation. Tried again today but, patient and family are refusing. MRI of the head-no evidence of metastasis. Altered mental status/confusion is stable, improved from admit. Nuclear medicine bone scan negative except for an area in the right rib that looks like it may be an old trauma. CT of the chest Showing mediastinal lymphadenopathy, areas in the lung are being reported as pneumonia versus metastasis, pancreatic mass. Breast cancer tumor markers are within normal defined limits. we finally received most of the reports from the patient's oncologist in [place]. Patient was diagnosed with an early stage breast cancer, treated with lumpectomy and put on Arimidex. There was no indication based on her early stage for any further workup. Because of patient's presenting symptoms imaging was preformed finding these other sites that are concerning. More concerning for a separate primary malignancy. we did discuss trying to do the MRCP but, patient and family are refusing. We will order a CA 19 9 to see what the level comes back as. Without a biopsy though, cannot be certain if the sites seen on CT scan are a pancreatic malignancy, Lung malignancy or metastasis from breast cancer or any of the other 2 possible primaries. We will await the CA-19-9. Patient will continue on Arimidex. We will plan for a follow-up appointment- which was rescheduled-and Dr. Miguel will discuss goals of care with patient and her family at that time. Current plan is to manage patient's symptoms. Current Visit: Yes Status: Acute Code(s): C50.919 - MALIGNANT NEOPLASM OF UNSP SITE OF UNSPECIFIED FEMALE BREAST SNOMED Code(s): 531649748 Time with Patient: Greater than 30
[2020-09-02 20:04] LABS: African American GFR (CKD) 95.7 (60.0-200.0); Albumin 3.6 g/dL (3.80-4.90); Albumin/Globulin Ratio 1.29 (1.60-3.17); Calcium 8.5 mg/dL (8.7-10.3); Globulin 2.8 g/dL (1.6-3.3); Non-African American GFR(CKD) 82.5 (60.0-200.0); Potassium 3.8 mmol/L (3.5-5.5); Total Bilirubin 0.4 mg/dL (0.2-1.2); Total Protein 6.4 g/dL (6.2-8.2)
[2020-09-02 20:12] LABS: Glucose,Whole Blood 199 mg/dL (75-99)
[2020-09-03 07:33] LABS: Glucose,Whole Blood 125 mg/dL (75-99)
[2020-09-03] MEDS: PANTOPRAZOLE 40 MG/10 ML VIAL IV SCH (07:51)
[2020-09-03] MEDS: GABAPENTIN 300 MG CAP PO SCH (07:51)
[2020-09-03] MEDS: ANASTROZOLE 1 MG TAB PO SCH (07:51)
[2020-09-03] MEDS: HEPARIN SODIUM,PORCINE/PF 5,000 UNIT/0.5 ML SYRINGE SQ SCH (07:51)
[2020-09-03] MEDS: IPRATROPIUM 0.5 MG/2.5 ML NEBU INHALATION SCH ×2 (08:18→11:10)
[2020-09-03] MEDS: SYMBICORT 80-4.5 MCG INHALER INHALATION SCH (08:18)
[2020-09-03] MEDS: MORPHINE SULFATE 2 MG/ML SYRINGE IVP PRN (10:38)
[2020-09-03] MEDS: SODIUM CHLORIDE 0.9% 1,000 ML IV SCH (11:48)
[2020-09-03 12:16] LABS: Glucose,Whole Blood 149 mg/dL (75-99)
[2020-09-03] MEDS: ATORVASTATIN 20 MG TAB PO SCH (12:51)
[2020-09-03 12:52] VITALS: BP 104/68; PULSE 80; RESP 19; TEMP 99
--- NOTE | 2020-09-03 13:26 | P.DS ---
Providers Date of admission: 09/02/20 08:12 Expected date of discharge: 09/03/20 Attending physician: Naz Alvarez DO Consults: 08/30/20 17:41 Consult Physician Routine Consulting Provider: Fransisco Miguel Consult Reason/Comments: Oncological care, breast cancer, evaluate for pancreatic duct obstruction Do you want consulting provider notified?: Yes Primary care physician: Stated None Hospital Course: Failure to thrive with Lethargy and anorexia possibly secondary to underlying malignancy Breast cancer on Hormone Therapy Dilated pancreatic duct with concerns of obstruction, reported incidental finding on imaging Patient was admitted for lethargy and anorexia with concern for metastatic malignancy. CT scan demonstrated findings of dilated pancreatic duct concerning for obstruction. Oncology and GI were consulted for management of suspected pancreatic mass. They recommended MRCP which was attempted twice but patient could not tolerate the procedure. Oncology recommended follow up in their office for further management. Regarding patient's suspected malignancy, prior oncology records indicated that patient's breast cancer was low grade and surgically removed, and she has been compliant with hormone therapy, making a metastatic breast cancer less likely. Therefore, the suspicion was for a new primary process with metastasis. CT of the chest demonstrated multiple areas of likely metastasis into the parenchyma, but also involving hilar lymph nodes. This was discussed with pulmonary who would be open to an EBUS with lymph node biopsy if oncology determined it was necessary on an outpatient basis. Patient was discharged home with oncology follow up and home care services. She was provided norco PRN for pain control in the interrim. Type II fak-iabnczj-apnrxhqmu diabetes mellitus -Held metformin and glimepiride while in house -Patient did have several episodes of hypoglycemia, therefore, on discharge metformin was continued, but glimepiride discontinued. Hyperlipidemia -Continued daily medication regimen with atorvastatin. Pulmonary fibrosis -Continued Symbicort I spent 39 minutes coordinating this complex discharge. Assessment: Gen: awake, alert HEENT: normocephalic, atraumatic, good hearing acuity, moist mucous membranes Resp: good air exchange, breathing comfortably with no accessory muscle use CVS: good distal perfusion x 4, GI: soft, NTTP, ND : no SPT, no CVAT, vieira catheter not present MSK: no pitting edema, no clubbing Neuro: non-focal, moving all extremities Psych: cooperative, euthymic mood Patient Condition at Discharge: Good Plan - Discharge Summary Discharge Rx Participant: Yes New Discharge Prescriptions: New Artificial Tears-Hypromellose [Artificial Tear Drops] 2 drops RIGHT EYE QID PRN #1 bottle PRN Reason: Dry Eye(S) Sennosides/Docusate Sodium [Senna Plus 8.6-50 mg Tablet] 1 each PO DAILY #30 tablet Acetaminophen Tab [Tylenol] 325 mg PO Q4HR PRN tab PRN Reason: Fever And/ Or Pain Ondansetron [Zofran] 8 mg PO Q6HR PRN #45 tab PRN Reason: Nausea HYDROcodone/APAP 5-325MG [P[place]kin 5-325] 1 tab PO Q4HR PRN 3 Days #36 tab PRN Reason: Pain Continue Fish Oil + Vitamin D3 360mg 1 tab PO DAILY Gabapentin [Neurontin] 600 mg PO TID Atorvastatin [Lipitor] 20 mg PO DAILY@1300 Albuterol Nebulized [Ventolin Nebulized] 2.5 mg INHALATION Q6H PRN PRN Reason: Shortness Of Breath metFORMIN HCL ER [Glucophage XR] 500 mg PO BID@0100,1300 Hydrocortisone Cream [Hydrocortisone 1% Cream] 1 applic TOPICAL BID PRN PRN Reason: Rash Vitamin E (Dl,Tocopheryl Acet) [Vitamin E (400 Iu = 180 mg)] 400 unit PO DAILY@1200 Fluticasone/Umeclidin/Vilanter [Trelegy Ellipta 100-62.5-25] 1 puff INHALATION RT-DAILY Anastrozole [Arimidex] 1 mg PO DAILY Discontinued Glimepiride [Amaryl] 3 mg PO DAILY@0100 Levofloxacin [Levaquin] 500 mg PO DAILY Discharge Medication List Albuterol Nebulized [Ventolin Nebulized] 2.5 mg INHALATION Q6H PRN 08/30/20 [History] Anastrozole [Arimidex] 1 mg PO DAILY 08/30/20 [History] Atorvastatin [Lipitor] 20 mg PO DAILY@1300 08/30/20 [History] Fish Oil + Vitamin D3 360mg 1 tab PO DAILY 08/30/20 [History] Fluticasone/Umeclidin/Vilanter [Trelegy Ellipta 100-62.5-25] 1 puff INHALATION RT-DAILY 08/30/20 [History] Gabapentin [Neurontin] 600 mg PO TID 08/30/20 [History] Hydrocortisone Cream [Hydrocortisone 1% Cream] 1 applic TOPICAL BID PRN 08/30/20 [History] Vitamin E (Dl,Tocopheryl Acet) [Vitamin E (400 Iu = 180 mg)] 400 unit PO DAILY@1200 08/30/20 [History] metFORMIN HCL ER [Glucophage XR] 500 mg PO BID@0100,1300 08/30/20 [History] Ondansetron [Zofran] 8 mg PO Q6HR PRN #45 tab 09/02/20 [Rx] Acetaminophen Tab [Tylenol] 325 mg PO Q4HR PRN tab 09/03/20 [Rx] Artificial Tears-Hypromellose [Artificial Tear Drops] 2 drops RIGHT EYE QID PRN #1 bottle 09/03/20 [Rx] HYDROcodone/APAP 5-325MG [[place]kin 5-325] 1 tab PO Q4HR PRN 3 Days #36 tab 09/03/20 [Rx] Sennosides/Docusate Sodium [Senna Plus 8.6-50 mg Tablet] 1 each PO DAILY #30 tablet 09/03/20 [Rx] Follow up Appointment(s)/Referral(s): Fransisco Miguel MD [STAFF PHYSICIAN] - 09/15/20 2:30 pm None,Stated [Primary Care Provider] - 1-2 days Discharge Disposition: HOME WITH HOME HEALTH SERVICES
== END 2020-09-03 15:36 | disposition home health service (06) | DRG 841 ==
LOC: EC 16:27 → 6NMEDSUR 17:42 → OBSVTOIN 09-02 08:12 → 5NMEDONC 09-02 16:17
PROVIDERS: ADMIT Internal Medicine; ATTEND Internal Medicine
DX: C77.1 Secondary and unspecified malignant neoplasm of intrathoracic lymph nodes (principal); N39.0 Urinary tract infection, site not specified; Q45.3 Other congenital malformations of pancreas and pancreatic duct; C78.00 Secondary malignant neoplasm of unspecified lung; C50.919 Malignant neoplasm of unspecified site of unspecified female breast; E11.649 Type 2 diabetes mellitus with hypoglycemia without coma; E78.5 Hyperlipidemia, unspecified; F03.90 Unspecified dementia, unspecified severity, without behavioral disturbance, psychotic disturbance, mood disturbance, and anxiety; I10 Essential (primary) hypertension; I48.91 Unspecified atrial fibrillation; J44.9 Chronic obstructive pulmonary disease, unspecified; J84.10 Pulmonary fibrosis, unspecified; K86.89 Other specified diseases of pancreas; R62.7 Adult failure to thrive; R63.3 Feeding difficulties; Z96.642 Presence of left artificial hip joint; M54.5 Low back pain; K21.9 Gastro-esophageal reflux disease without esophagitis; R63.0 Anorexia; G62.9 Polyneuropathy, unspecified; Z79.51 Long term (current) use of inhaled steroids; Z79.811 Long term (current) use of aromatase inhibitors; Z79.84 Long term (current) use of oral hypoglycemic drugs; Z79.899 Other long term (current) drug therapy; Z85.3 Personal history of malignant neoplasm of breast; Z87.01 Personal history of pneumonia (recurrent); Z87.891 Personal history of nicotine dependence; Z90.49 Acquired absence of other specified parts of digestive tract
CPT/HCPCS: 70553; 71045; 71260; 78306; 80048; 80053; 82150; 83605; 83690; 83735; 85025; 85027; 86300; 86301; 87040; 94640; 96374; 99284

== ENCOUNTER → 2020-09-15 | Outpatient (CLI) | payer MEDICARE ==
--- NOTE | 2020-09-15 17:15 | US ---
EXAMINATION TYPE: US venous doppler duplex LE DATE OF EXAM: 09/15/2020 4:48 PM COMPARISON: NONE CLINICAL HISTORY: R22.42, R22.41 SWELLING OF RT AND LT LIMBS. Left leg swelling/ order for bilateral legs SIDE PERFORMED: Bilateral TECHNIQUE: The lower extremity deep venous system is examined utilizing real time linear array sonog ernie with graded compression, doppler sonography and color-flow sonography. VESSELS IMAGED: Common Femoral Vein Deep Femoral Vein Greater Saphenous Vein * Femoral Vein Popliteal Vein Small Saphenous Vein * Proximal Calf Veins (* superficial vessels) Right Leg: Negative for DVT, probable Monahan's Cyst right pop fossa= 3.0 x 0.5 x 2.0 cm Left Leg: Negative for DVT, Probable Monahan's cyst left pop fossa= 4.1 x 0.8 x 2.5 cm results called to Michelle at 's office at time of exam IMPRESSION: No acute bilateral lower extremity DVT. Findings compatible with bilateral Monahan's cysts.
== END | disposition home or self-care (01) ==
LOC: RADUSWWP 16:12
PROVIDERS: ATTEND Internal Medicine Hematology & Oncology
DX: R22.43 Localized swelling, mass and lump, lower limb, bilateral (principal)
CPT/HCPCS: 93970

== ENCOUNTER → 2020-10-01 | Outpatient (CLI) | payer MEDICARE ==
--- NOTE | 2020-10-04 06:17 | PE ---
EXAMINATION TYPE: PET CT fusion skull to thigh DATE OF EXAM: 10/01/2020 COMPARISON: Chest CT August 31, 2020. Outside CT abdomen and pelvis August 30, 2020. Nuclear medicine bon e scan September 01, 2020 HISTORY: Left-sided invasive ductal carcinoma breast cancer diagnosed Jun 21 2020 , recent abnormal CT, pancreatic head abnormality and lung abnormalities. TECHNIQUE: Following the intravenous administration of 10.72 mCi of F-18 FDG, whole body images are performed from the skull base to the midthigh. Images are reviewed on the computer in the coronal, a xial, and sagittal planes. Reconstructed rotating images are created on independent workstation and reviewed on the computer. A localization and attenuation correction CT is performed in conjunction with the PET scan. Blood glucose level equals 100. SCAN: Initial Scan FINDINGS: SKULL BASE AND NECK: No areas of abnormal hypermetabolic uptake. CHEST, MEDIASTINUM, AND HILAR REGION: Persistent emphysematous and pulmonary fibrotic changes includi ng peripheral reticulation and reticulonodular basilar opacities. Persistent masslike consolidation i n the periphery of the right upper lobe measuring approximately 5.6 x 2.7 cm axial image 59, max SUV is 6.59. Some prominent mediastinal lymph nodes remain present but are ametabolic. No additional areas of abnormal hypermetabolic uptake including left breast and axillary region.. ABDOMEN AND PELVIS: Pneumobilia is redemonstrated. No abnormal hypermetabolic uptake in the pancreas which shows mild/moderate generalized atrophy. Prominent nonspecific bowel uptake involving right-pravin ed colon should be correlated with most recent colonoscopy. Normal excretion. No additional areas of abnormal hypermetabolic uptake. OSSEOUS STRUCTURES: Subtle lucent lesion posterior right T11 level with abnormal hypermetabolic uptak e axial image 98 corresponds to subtle area of increased radiotracer uptake in bone scan in more care ful review, max SUV is 7.17. No additional areas of abnormal hypermetabolic uptake OTHER CT: Scoliosis with exaggerated curvature on sagittal images. Prominent disc space narrowing lum bosacral junction. Multilevel spurring and disc space narrowing in the thoracic spine. Metallic hardw are from bilateral hip arthroplasty is noted. Facet arthropathy lower lumbar levels. Cardiomegaly with coronary artery calcification. Moderate calcified plaque bilateral carotid bulb lev el. Sigmoid colonic diverticulosis. Prominent fecal material throughout the colon. Poorly distended stoma ch. Moderate to severe calcified plaque in ectatic abdominal aorta. Large fat-containing umbilical he rnia. Uterus is likely surgically absent. IMPRESSION: Suspicious lesion periphery right upper lobe remains present. Suspicious lesion right pos terior T11 level. Both areas worrisome for neoplastic involvement.
== END | disposition home or self-care (01) ==
LOC: RADPETMAIN 10:04
PROVIDERS: ATTEND Internal Medicine Hematology & Oncology
DX: C50.412 Malignant neoplasm of upper-outer quadrant of left female breast (principal); R91.1 Solitary pulmonary nodule; E11.9 Type 2 diabetes mellitus without complications; Z17.0 Estrogen receptor positive status [ER+]
CPT/HCPCS: 78815; A9552

== ENCOUNTER 2020-11-15 09:27 | Day surgery (SDC) | payer MEDICARE ==
[2020-11-15 10:16] VITALS: RESP 20; TEMP 98.7
[2020-11-15 10:19] LABS: Mean Platelet Volume 7.2; Platelet Count 326 k/uL (150-450)
[2020-11-15 10:26] LABS: Prothrombin Time 10.4 sec (9.0-12.0)
--- NOTE | 2020-11-15 11:39 | CT ---
EXAMINATION TYPE: CT discontinued procedure DATE OF EXAM: 11/15/2020 COMPARISON: 10/01/2020 HISTORY: attempted lung mass biopsy CT DLP: 1045.6 mGycm The procedure is discussed with the patient and the patient's daughter, the risks, complications, juan efits and alternatives, were discussed and any questions were answered. Informed consent was obtaine d. The patient is placed prone on the CT table, prepped and draped in the usual sterile fashion. Despite multiple attempts and multiple repositioning the needle accurate placement of the needle coul d not be performed to access the lesion. The patient had difficulty replicate the degree of inspirati on. Procedure discontinued. IMPRESSION: 1. Discontinued lung biopsy attempt as above.
[2020-11-15 11:47] VITALS: BP 141/79; PULSE 68
== END 2020-11-15 11:40 | disposition home or self-care (01) ==
LOC: RADPROMAIN 09:27
PROVIDERS: ATTEND Internal Medicine Hematology & Oncology
DX: R91.8 Other nonspecific abnormal finding of lung field (principal)
CPT/HCPCS: 36415; 76380; 82947; 85049; 85610

== ENCOUNTER 2020-11-30 10:32 | Day surgery (SDC) | payer MEDICARE ==
[2020-11-26 14:30] VITALS: BMI 29.7
[~2020-11-30 10:32] MED LIST changes: +ALBUTEROL NEB (CONC) 2.5 MG/0.5 ML INHALATION ONE; +LIDOCAINE 1% (10MG/ML) FOR IV START INTRADERMA PRN; +LIDOCAINE 2% (PF) 20 MG/ML 5 ML VIAL INHALATION ONE; +LIDOCAINE VISCOUS 300 MG/15 ML CUP MUCOUS MEM ONE; +ONDANSETRON 4 MG/2 ML VIAL IVP PRN; +SODIUM CHLORIDE 0.9% 1,000 ML IV SCH; +fentaNYL (PF) 50 MCG/ML 2 ML AMP IV PRN
[2020-11-30 11:15] LABS: Glucose,Whole Blood 115 mg/dL (75-99)
--- NOTE | 2020-11-30 12:22 | CT ---
EXAMINATION TYPE: CT Chest osman Mahoney Protocol DATE OF EXAM: 11/30/2020 COMPARISON: PET CT October 01, 2020 HISTORY: pre bronchial navigation CT DLP: 516 mGycm Automated exposure control for dose reduction was used.CT thorax without contrast. FINDINGS: The exam is for bronchoscopy planning and not for diagnostic purposes. There is chronic emphysematous and pulmonary fibrotic changes in the periphery with lower lung bronchiectasis and bronchial wall th ickening. Persistent suspicious peripheral nodule and/or nodular consolidation anterior right upper l babak. Exaggerated thoracic kyphosis. Pneumobilia redemonstrated. IMPRESSION: As above.
[2020-11-30] MEDS ORDERED: PHENYLEPHRINE-0.9% NACL SYG 1,000 MCG/10 ML SYRINGE ONE (12:27)
[2020-11-30] MEDS ORDERED: fentaNYL (PF) 50 MCG/ML 2 ML AMP ONE (12:27)
[2020-11-30] MEDS ORDERED: PROPOFOL 10 MG/ML 20 ML VIAL IV ONE (12:27)
[2020-11-30] MEDS ORDERED: SUCCINYLCHOLINE CHLORIDE 100 MG/5 ML SYR IV ONE (12:27)
[2020-11-30] MEDS ORDERED: LIDOCAINE 1% INJ 10MG/ML (20 ML MDV) ONE (12:27)
--- NOTE | 2020-11-30 13:32 | P.PCN ---
Date of Procedure: 11/30/20 Preoperative Diagnosis: RUL mass, history of breast cancer Postoperative Diagnosis: RUL mass, history of breast cancer Procedure(s) Performed: 1 Navigational bronchoscopy 2 transbronchial biopsy of the right upper lobe 3 transbronchial brushing of the right upper lobe 4 bronchial lavage of the right upper lobe 5 EBUS -endoscopic ultrasound with identification of a 1.3 cm subcarinal lymph node 6 EBUS guided transbronchial needle aspirate of subcarinal lymph node Anesthesia: STEFFANIEA Surgeon: Corry Carbone Estimated Blood Loss (ml): 5 Pathology: other Condition: stable Disposition: same day Operative Findings: This is a navigational bronchoscopy and EBUS on this 85-year-old female patient with previous history of breast cancer. The patient was found to have a right upper lobe opacity that showed increased metabolic activity and based on oncology request, transbronchial biopsies of the right upper lobe was recommended in addition to endoscopic ultrasound and evaluation of mediastinal lymph nodes This procedure was done under general anesthesia. The patient initially was taken for a CAT scan for a computed tomography scan of the chest using the Veran protocol. The CAT scan of the chest was completed. Images were reviewed. The right upper lobe opacity was mapped. Appropriate airway leading to the right upper lobe opacity was identified. All of this information was uploaded into the [employer] navigational tower The patient was brought into the endoscopy suite. The patient was intubated by [facility] [employer]. After achieving adequate sedation and anesthesia, the flexible bronchoscope was introduced through the oral tracheal tube and it was advanced into the lower trachea. The tip of the tube was seen around 2 cm above the dandy and appropriate adjustment of tube was done with the tube was positioned at 20 cm lip line. Following that, and airway inspection was done. The bronchoscope was advanced into the distal trachea, back and mainstem bronchi, right upper lobe bronchus, right bronchus intermedius, right middle lobe bronchus and right lower lobe bronchus along with various segments involving the right lung and this included a total of 10 segments. Bronchoscope was then moved to the left with examination of the left mainstem bronchus, left upper lobe bronchus and left lower bronchus and the various 8 segments of the left lung was done. Airways inspection was completed. Appropriate calibration was done using the main dandy and the secondary dandy on the left as evidenced points. Using navigational guidance, the flexible bronchoscope was directed to the right upper lobe anterior segment and right upper lobe opacity was biopsied. A total of 7-8 passes were obtained under navigational guidance. Following that, navigational guidance endobronchial brushing of the right upper lobe was done. A bronchial lavage of the right upper lobe was also completed a total of bases of fluid was infused and 20 mL of aspirate was obtained. There navigational bronchoscope was removed. The EBUS was introduced. A quick inspection of the mediastinal lymph node revealed no significant based on lymphadenopathy. Largest lymph node was around 1.3 cm lymph node in the subcarinal area. Using a 22-gauge needle, transbronchial needle aspirate of the subcarinal lymph node was done. I performed only 1 past. I did not attempt any further passes as the patient had some issues with hypotension and elevation of peak airway pressure. Furthermore, the paratracheal and the subcarinal lymph node did not show any activity on a previous PET scan. As such, based on the size and the lack of activity on the PET scan, no further biopsies were o btained. Bronchoscope was removed. The procedure was terminated. Therapeutic it was suctioning was done. The patient was extubated the patient was transferred recovery in stable condition. The chest x-rays to follow. If all things are stable, the patient can be discharged home today.
[2020-11-30 13:37] VITALS: RESP 16; TEMP 97
--- NOTE | 2020-11-30 14:00 | XR ---
EXAMINATION TYPE: XR chest 1V portable DATE OF EXAM: 11/30/2020 COMPARISON: Chest x-ray and CT August 31, 2020. HISTORY: Bronchoscopy earlier today. TECHNIQUE: Single AP portable frontal upright view of the chest is obtained. FINDINGS: There chronic reticular parenchymal changes bilaterally greatest in the periphery with inc reased opacity in the periphery of the right upper lung redemonstrated. No pneumothorax after broncho scopy. The cardiac silhouette size is stable and upper limits of normal with atherosclerotic aorta. The osseous structures remain demineralized. IMPRESSION: No pneumothorax after bronchoscopy.
[2020-11-30] MEDS ORDERED: diphenhydrAMINE 50 MG/ML 1 ML VIAL IVP ONE ×2 (14:13)
[2020-11-30] MEDS ORDERED: diphenhydrAMINE 50 MG/ML 1 ML VIAL ONE (14:15)
[2020-11-30] MEDS ORDERED: IPRATROPIUM-ALBUTEROL 3 ML NEB INHALATION STA (15:46)
[2020-11-30 17:19] VITALS: BP 138/77
[2020-11-30 18:35] VITALS: PULSE 79
== END 2020-11-30 18:36 | disposition home or self-care (01) ==
LOC: ORWHC2ENDO 10:32
PROVIDERS: ATTEND Internal Medicine Critical Care Medicine
DX: R91.8 Other nonspecific abnormal finding of lung field (principal); Z85.3 Personal history of malignant neoplasm of breast
CPT/HCPCS: 31645; 31623 ×2; 31624 ×2; 31627 ×2; 31628; 31629; 31652 ×2; 31654; 94640; 87798 ×3; 87496; 87498; 87529; 88104; 88108; 88305; 88342; 87252; 87502; 87634; 88341; 87070; 87205; 87116; 87102; 87077; 87186; 87206; 71045; 71250; 31625; J1200; J2405; J2001; J3010; J2370; J0330; J2704

== ENCOUNTER 2021-01-26 18:06 | Inpatient (IN) | payer MEDICARE ==
[2021-01-26] MEDS ORDERED: ACETAMINOPHEN TAB 500 MG TAB PO STA (18:28)
[2021-01-26 18:46] LABS: Basophils # (A) 0.1 k/uL (0-0.2); Basophils % (A) 1 %; Eosinophils # (A) 0.2 k/uL (0-0.7); Eosinophils % (A) 2 %; HCT 35.7 % (34.0-46.0); HGB 11.7 gm/dL (11.4-16.0); Lymphocytes % (A) 9 %; MCH 29.8 pg (25.0-35.0); MCHC 32.8 g/dL (31.0-37.0); MCV 90.9 fL (80.0-100.0); Mean Platelet Volume 7.6; Monocytes # (A) 0.7 k/uL (0-1.0); Monocytes % (A) 6 %; Neutrophils % (A) 82 %; Platelet Count 250 k/uL (150-450); RBC 3.92 m/uL (3.80-5.40); RDW 14.5 % (11.5-15.5)
--- NOTE | 2021-01-26 18:50 | ED ---
General Adult HPI - General Chief complaint: Fever Stated complaint: fever, foot pain Time Seen by Provider: 01/26/21 18:12 Source: patient, EMS Mode of arrival: EMS Limitations: altered mental status - History of Present Illness Initial comments: 85-year-old female presents to the emergency room for a chief complaint of fever. Patient is a poor historian. According to EMS caregiver states the patient developed a fever this morning. She has not had cough congestion or abdominal pain. Patient is complaining of bilateral feet pain but this is norm al for her as she has a history of diabetes.Patient has no other complaints at this time including shortness of breath, chest pain, abdominal pain, nausea or vomiting, headache, or visual changes. - Related Data Home Medications Medication Instructions Recorded Confirmed Anastrozole [Arimidex] 1 mg PO DAILY 08/30/20 01/26/21 Gabapentin [Neurontin] 600 mg PO TID 08/30/20 01/26/21 Vitamin E (Dl,Tocopheryl Acet) 400 unit PO DAILY 08/30/20 01/26/21 [Vitamin E (400 Iu = 180 mg)] metFORMIN HCL ER [Glucophage XR] 500 mg PO BID-W/MEALS 08/30/20 01/26/21 Cholecalciferol [Vitamin D3 (25 25 mcg PO DAILY 11/02/20 01/26/21 Mcg = 1000 Iu)] Acetaminophen Tab [Tylenol] 500 - 1,000 mg PO Q4HR PRN 11/26/20 01/26/21 Ipratropium-Albuterol Nebulize 3 ml INHALATION RT-Q6H PRN 11/26/20 01/26/21 [Duoneb 0.5 mg-3 mg/3 ml Soln] [place]-3 Fatty Acids/Fish Oil [Fish 1 cap PO DAILY 11/26/20 01/26/21 Oil 1,000 mg Softgel] Furosemide [Lasix] 20 mg PO DAILY 01/26/21 01/26/21 HYDROcodone/APAP 5-325MG [[place] 1 tab PO Q8HR PRN 01/26/21 01/26/21 5-325] Allergies Allergy/AdvReac Type Severity Reaction Status Date / Time trimethoprim [From Bactrim] Allergy Unknown Unknown Verified 01/26/21 19:12 zolpidem [From Ambien] Allergy Unknown Unknown Verified 01/26/21 19:12 adhesive tape Allergy skin peels Verified 01/26/21 19:12 off,dtr states "paper tape is ok" clindamycin Allergy Unknown Verified 01/26/21 19:12 duloxetine [From Cymbalta] Allergy Unknown Verified 01/26/21 19:12 fluoxetine [From Prozac] Allergy Unknown Verified 01/26/21 19:12 haloperidol Allergy Unknown Verified 01/26/21 19:12 hydroxyzine [From Vistaril] Allergy Unknown Verified 01/26/21 19:12 levofloxacin [From Levaquin] Allergy Unknown Verified 01/26/21 19:12 lorazepam [From Ativan] Allergy Unknown Verified 01/26/21 19:12 morphine Allergy Unknown Verified 01/26/21 19:12 Penicillins Allergy Unknown Verified 01/26/21 19:12 pregabalin [From Lyrica] Allergy Unknown Verified 01/26/21 19:12 streptomycin Allergy Unknown Verified 01/26/21 19:12 Sulfa (Sulfonamide Allergy Unknown Verified 01/26/21 19:12 Antibiotics) sulfamethoxazole Allergy Unknown Verified 01/26/21 19:12 [From Bactrim] Review of Systems ROS Statement: Those systems with pertinent positive or pertinent negative responses have been documented in the HPI. ROS Other: All systems not noted in ROS Statement are negative. Past Medical History Past Medical History: Atrial Fibrillation, Cancer, COPD, Diabetes Mellitus, GERD/Reflux, Hypertension, Memory Impairment, Pneumonia Additional Past Medical History / Comment(s): hx. of frequent pneumonia-last time in September, back pain, neuropathy, breast cancer, paroxymal atrial fibrillation from one of the medications she is allergic to but her daughter is unsure of which one History of Any Multi-Drug Resistant Organisms: MRSA Date of last positivie culture/infection: 2009 MDRO Source:: foot Past Surgical History: Cholecystectomy, Hysterectomy, Joint Replacement, Orthopedic Surgery, Tubal Ligation Additional Past Surgical History / Comment(s): bilateral hip replaced, ankle surgery, bilateral cataract surgery, lower back surgery, planned for lung biopsy 11/15/20, gallstones removed Past Anesthesia/Blood Transfusion Reactions: Previous Problems w/ Anesthesia Additional Past Anesthesia/Blood Transfusion Reaction / Comment(s): slow to wake up post anesthesia Past Psychological History: No Psychological Hx Reported Smoking Status: Former smoker Past Alcohol Use History: None Reported Past Drug Use History: None Reported - Past Family History Brother(s) Family Medical History: Cancer Father Family Medical History: Cancer General Exam Limitations: altered mental status General appearance: alert, in no apparent distress Head exam: Present: atraumatic Eye exam: Present: normal appearance, PERRL, EOMI ENT exam: Present: normal exam, mucous membranes moist Neck exam: Present: normal inspection, full ROM. Absent: tenderness Respiratory exam: Present: normal lung sounds bilaterally. Absent: respiratory distress, wheezes Cardiovascular Exam: Present: regular rate, normal rhythm, normal heart sounds GI/Abdominal exam: Present: soft, normal bowel sounds. Absent: distended, tenderness Extremities exam: Present: full ROM, normal capillary refill (bilat lower extremities). Absent: tenderness (bilat lower extremities) Neurological exam: Present: alert Course Vital Signs 01/26/21 01/26/21 01/26/21 18:21 19:00 21:12 Temperature 101.6 F H 99.4 F Pulse Rate 81 69 Respiratory 16 16 Rate Blood Pressure 106/59 113/62 O2 Sat by Pulse 89 L 93 L 98 Oximetry EKG Findings - EKG Comments: EKG Findings:: normal sinus rhythm, ventricular rate 77, WI interval 162, QTC 423 Medical Decision Making - Medical Decision Making vitals stable. Patient is on 2 L nasal cannula at home. Today she is requiring 4 L. She did test positive for COVID-19. CBC CMP unremarkable. She also has a urinary tract infection. This was treated with Rocephin. Chest x-ray reveals CHF versus chronic changes. BNP added. EKG nonischemic. Given increased oxygen requirement as well as UTI patient will be admitted for further management. - Lab Data Result diagrams: 01/26/21 18:38 01/26/21 18:38 Lab Results 01/26/21 01/26/21 01/26/21 Range/Units 18:38 18:38 18:38 WBC 11.0 H (3.8-10.6) k/uL RBC 3.92 (3.80-5.40) m/uL Hgb 11.7 (11.4-16.0) gm/dL Hct 35.7 (34.0-46.0) % MCV 90.9 (80.0-100.0) fL MCH 29.8 (25.0-35.0) pg MCHC 32.8 (31.0-37.0) g/dL RDW 14.5 (11.5-15.5) % Plt Count 250 (150-450) k/uL MPV 7.6 Neutrophils % 82 % Lymphocytes % 9 % Monocytes % 6 % Eosinophils % 2 % Basophils % 1 % Neutrophils # 9.0 H (1.3-7.7) k/uL Lymphocytes # 1.0 (1.0-4.8) k/uL Monocytes # 0.7 (0-1.0) k/uL Eosinophils # 0.2 (0-0.7) k/uL Basophils # 0.1 (0-0.2) k/uL Sodium 130 L (137-145) mmol/L Potassium 5.2 H (3.5-5.1) mmol/L Chloride 96 L (98-107) mmol/L Carbon Dioxide 27 (22-30) mmol/L Anion Gap 7 mmol/L BUN 15 (7-17) mg/dL Creatinine 0.64 (0.52-1.04) mg/dL Est GFR (CKD-EPI)AfAm >90 (>60 ml/min/1.73 sqM) Est GFR (CKD-EPI)NonAf 81 (>60 ml/min/1.73 sqM) Glucose 131 H (74-99) mg/dL Plasma Lactic Acid [place] 1.1 (0.7-2.0) mmol/L Calcium 8.7 (8.4-10.2) mg/dL Total Bilirubin 0.4 (0.2-1.3) mg/dL AST 29 (14-36) U/L ALT 11 (4-34) U/L Alkaline Phosphatase 47 (38-126) U/L Troponin I (0.000-0.034) ng/mL Total Protein 6.9 (6.3-8.2) g/dL Albumin 3.6 (3.5-5.0) g/dL Urine Color Urine Appearance (Clear) Urine pH (5.0-8.0) Ur Specific [place] (1.001-1.035) Urine Protein (Negative) Urine Glucose (UA) (Negative) Urine Ketones (Negative) Urine Blood (Negative) Urine Nitrite (Negative) Urine Bilirubin (Negative) Urine Urobilinogen (<2.0) mg/dL Ur Leukocyte Esterase (Negative) Urine RBC (0-5) /hpf Urine WBC (0-5) /hpf Urine WBC Clumps (None) /hpf Ur Squamous Epith Cells (0-4) /hpf Urine Bacteria (None) /hpf Urine Mucus (None) /hpf Influenza Type A (PCR) (Not Detectd) Influenza Type B (PCR) (Not Detectd) RSV (PCR) (Not Detectd) SARS-CoV-2 (PCR) (Not Detectd) 01/26/21 01/26/21 01/26/21 Range/Units 18:38 20:25 20:25 WBC (3.8-10.6) k/uL RBC (3.80-5.40) m/uL Hgb (11.4-16.0) gm/dL Hct (34.0-46.0) % MCV (80.0-100.0) fL MCH (25.0-35.0) pg MCHC (31.0-37.0) g/dL RDW (11.5-15.5) % Plt Count (150-450) k/uL MPV Neutrophils % % Lymphocytes % % Monocytes % % Eosinophils % % Basophils % % Neutrophils # (1.3-7.7) k/uL Lymphocytes # (1.0-4.8) k/uL Monocytes # (0-1.0) k/uL Eosinophils # (0-0.7) k/uL Basophils # (0-0.2) k/uL Sodium (137-145) mmol/L Potassium (3.5-5.1) mmol/L Chloride (98-107) mmol/L Carbon Dioxide (22-30) mmol/L Anion Gap mmol/L BUN (7-17) mg/dL Creatinine (0.52-1.04) mg/dL Est GFR (CKD-EPI)AfAm (>60 ml/min/1.73 sqM) Est GFR (CKD-EPI)NonAf (>60 ml/min/1.73 sqM) Glucose (74-99) mg/dL Plasma Lactic Acid [place] (0.7-2.0) mmol/L Calcium (8.4-10.2) mg/dL Total Bilirubin (0.2-1.3) mg/dL AST (14-36) U/L ALT (4-34) U/L Alkaline Phosphatase (38-126) U/L Troponin I <0.012 (0.000-0.034) ng/mL Total Protein (6.3-8.2) g/dL Albumin (3.5-5.0) g/dL Urine Color Yellow Urine Appearance Cloudy H (Clear) Urine pH 5.0 (5.0-8.0) Ur Specific [place] 1.012 (1.001-1.035) Urine Protein Trace H (Negative) Urine Glucose (UA) Negative (Negative) Urine Ketones Negative (Negative) Urine Blood Trace H (Negative) Urine Nitrite Positive H (Negative) Urine Bilirubin Negative (Negative) Urine Urobilinogen <2.0 (<2.0) mg/dL Ur Leukocyte Esterase Large H (Negative) Urine RBC 37 H (0-5) /hpf Urine WBC 65 H (0-5) /hpf Urine WBC Clumps Many H (None) /hpf Ur Squamous Epith Cells <1 (0-4) /hpf Urine Bacteria Many H (None) /hpf Urine Mucus Rare H (None) /hpf Influenza Type A (PCR) Not Detected (Not Detectd) Influenza Type B (PCR) Not Detected (Not Detectd) RSV (PCR) Not Detected (Not Detectd) SARS-CoV-2 (PCR) Detected A (Not Detectd) Disposition Clinical Impression: Acute respiratory failure with hypoxia, COVID-19, UTI (urinary tract infection) Disposition: ADMITTED IP TO THIS HOSP Is patient prescribed a controlled substance at d/c from ED?: No Referrals: Aubrey rGeen MD [Primary Care Provider] - 1-2 days Time of Disposition: 21:23
--- NOTE | 2021-01-26 18:54 | XR ---
EXAMINATION TYPE: XR chest 2V DATE OF EXAM: 01/26/2021 COMPARISON: 12/21/2020 HISTORY: Fever TECHNIQUE: FINDINGS: There is coarse interstitial infiltrate throughout both lungs. There is poor inspiration. H eart size is normal. Bones are osteopenic. There is no definite pleural effusion. IMPRESSION: Pulmonary interstitial infiltrates could relate to acute heart failure or interstitial ch ronic pneumonia and are similar to old exam. Inspiration decreased compared to old exam.
[2021-01-26 19:00] LABS: ALT 11 U/L (4-34); AST 29 U/L (14-36); African American GFR (CKD) >90 (>60 ml/min/1.73 sqM); Albumin 3.6 g/dL (3.5-5.0); Alkaline Phosphatase 47 U/L (38-126); Anion Gap 7 mmol/L; Blood Urea Nitrogen 15 mg/dL (7-17); Calcium 8.7 mg/dL (8.4-10.2); Carbon Dioxide 27 mmol/L (22-30); Chloride 96 mmol/L (98-107); Glucose 131 mg/dL (74-99); Non-African American GFR(CKD) 81 (>60 ml/min/1.73 sqM); Sodium 130 mmol/L (137-145); Total Bilirubin 0.4 mg/dL (0.2-1.3); Total Protein 6.9 g/dL (6.3-8.2)
[2021-01-26 19:03] LABS: Potassium 5.2 mmol/L (3.5-5.1)
[2021-01-26 21:07] LABS: Appearance,Urine Cloudy (Clear); Bacteria,Urine Many /hpf; Bilirubin,Urine Negative (Negative); Blood,Urine Trace (Negative); Color,Urine Yellow; Glucose,Urine (UA) Negative (Negative); Ketones,Urine Negative (Negative); Leukocyte Esterase,Urine Large (Negative); Mucus,Urine Rare /hpf; Nitrite,Urine Positive (Negative); Protein,Urine Trace (Negative); RBC,Urine 37 /hpf (0-5); Specific Gravity,Urine 1.012 (1.001-1.035); Squamous Epithelial Cell,Urine <1 /hpf (0-4); Urobilinogen,Urine <2.0 mg/dL (<2.0); WBC,Urine 65 /hpf (0-5)
[2021-01-26] MEDS ORDERED: cefTRIAXone IN SWFI 1,000 MG/10 ML SYRINGE IVP STA (21:24)
[2021-01-26] MEDS ORDERED: ONDANSETRON 4 MG/2 ML VIAL IVP PRN (21:27)
[2021-01-26] MEDS ORDERED: ACETAMINOPHEN TAB 325 MG TAB PO PRN (21:27)
[2021-01-26] MEDS ORDERED: NALOXONE 0.4 MG/ML 1 ML VIAL IV PRN (21:27)
[2021-01-26] MEDS ORDERED: IPRATROPIUM-ALBUTEROL 3 ML NEB INHALATION PRN (21:28)
[2021-01-26] MEDS ORDERED: TIOTROPIUM 2.5 MCG INHALER INHALATION PRN (21:41)
[2021-01-26] MEDS ORDERED: DEXAMETHASONE SOD PHOSPHATE 10 MG/ML 1 ML VIAL IVP ONE (21:45)
[2021-01-26] MEDS: GABAPENTIN 300 MG CAP PO SCH (22:38)
[2021-01-27] MEDS: SODIUM CHLORIDE 0.9% 1,000 ML IV SCH ×2 (00:31→08:18)
[2021-01-27 07:34] LABS: Glucose,Whole Blood 225 mg/dL (75-99)
[2021-01-27] MEDS: FUROSEMIDE 20 MG TAB PO SCH ×2 (07:58→08:09)
[2021-01-27] MEDS: DEXAMETHASONE SOD PHOSPHATE 10 MG/ML 1 ML VIAL IVP SCH (08:09)
[2021-01-27] MEDS: FAMOTIDINE 20 MG/2 ML VIAL IV SCH ×2 (08:09→21:09)
[2021-01-27] MEDS: CHOLECALCIFEROL 25 MCG (1000 IU) TABLET PO SCH (08:09)
[2021-01-27] MEDS: GABAPENTIN 300 MG CAP PO SCH ×3 (08:09→21:09)
[2021-01-27] MEDS: ENOXAPARIN 40 MG/0.4 ML SYRINGE SQ SCH (08:09)
[2021-01-27] MEDS: metFORMIN 500 MG TAB PO SCH ×2 (08:09→16:56)
[2021-01-27] MEDS: INSULIN ASPART (NovoLOG) 100 UNIT/ML VIAL SQ SCH ×4 (08:10→21:13)
[2021-01-27] MEDS: ASCORBIC ACID 500 MG TAB PO SCH (08:10)
[2021-01-27] MEDS: HYDROcodone/APAP 5-325MG 1 EACH TAB PO PRN (08:17)
[2021-01-27] MEDS: VITAMIN E (DL,TOCOPHERYL ACET) 400 UNIT (180 MG) CAP PO SCH (08:18)
[2021-01-27] MEDS: ZINC SULFATE 220 MG CAP PO SCH (08:18)
[2021-01-27 08:37] LABS: African American GFR (CKD) >90 (>60 ml/min/1.73 sqM); Anion Gap 9 mmol/L; Blood Urea Nitrogen 14 mg/dL (7-17); Calcium 8.3 mg/dL (8.4-10.2); Carbon Dioxide 23 mmol/L (22-30); Chloride 100 mmol/L (98-107); Glucose 234 mg/dL (74-99); LDH 516 U/L (313-618); Non-African American GFR(CKD) 85 (>60 ml/min/1.73 sqM); Potassium 4.8 mmol/L (3.5-5.1); Sodium 132 mmol/L (137-145)
[2021-01-27] MEDS ORDERED: NON FORMULARY DRUG (Omega-3 Fatty Acids/Fish Oil [Fish Oil 1,000 Mg Softgel] 1 EACH Capsul PO SCH (09:00)
[2021-01-27] MEDS ORDERED: cefTRIAXone IN SWFI 1,000 MG/10 ML SYRINGE IVP SCH (09:00)
[2021-01-27 11:50] LABS: Glucose,Whole Blood 137 mg/dL (75-99)
--- NOTE | 2021-01-27 11:57 | P.CNPUL ---
History of Present Illness Consult date: 01/27/21 Requesting physician: Jacob Dave Reason for consult: dyspnea, cough, hypoxemia, abnormal CXR/CT Chief complaint: Dyspnea, cough History of present illness: 85-year-old white female patient with past medical history of COPD, on home oxygen, paroxysmal A. fib, history of breast cancer, diabetes mellitus type 2, hypertension, dementia, previous episodes of pneumonia, previous MRSA infection in the foot, former smoker. Patient has chronic emphysematous some pulmonary fibrotic changes with lower lung bronchiectasis on her most recent CT chest from 11/30/2020. Patient had a nodular consolidation in the anterior right upper lung for which she underwent navigational bronchoscopy with biopsies and EBUS of the subcarinal lymph node, and the pathology was negative. Patient comes in to the emergency department per EMS on 01/26/2021 with a chief complaint of fever, the fever had developed in the morning. Patient is a poor historian, however she states she also had some mild dyspnea and cough and congestion although she initially did not complain of those things in the emergency department. She was also complaining of bilateral feet pain however this is no different than her usual diabetic neuropathy pain. No chest pain, no hemoptysis, patient was diagnosed with COVID-19, she states she did not receive COVID-19 vaccination. Her chest x-ray showed pulmonary interstitial infiltrates. Her lab work showed white count of 11.0, hemoglobin of 11.7, d-dimer was 1.86, sodium is 1:30, potassium is 5.2, chloride is 96, CO2 27, BUN is 15, creatinine 0.64, lactic acid was 1.1, LFTs were within normal limits, troponin was less than 0.012, proBNP was 591, CRP was 6.0, LDH was 516, urinalysis showed evidence of acute urinary tract infection, with positive nitrites, trace blood, large leuk trase, 65 of WBCs, and many bacteria. Influenza and RSV screen were negative. Patient is currently resting comfortably in bed, she has a mild congestion, lung sounds reveal diffuse coarse inspiratory crackles throughout her lungs, she is currently on 4 L of oxygen, does not appear to be in any acute distress, she is afebrile. She has been started on a combination of Decadron, Rocephin for urinary tract infection, vitamins, and prophylactic Lovenox, she is receiving IV fluids at a rate of 75 ML per hour. Review of Systems All systems: negative Constitutional: Denies chills, Denies fever Eyes: denies blurred vision, denies pain Ears, nose, mouth and throat: Denies headache, Denies sore throat Cardiovascular: Denies chest pain, Denies shortness of breath Respiratory: Reports congestion, Reports cough, Reports dyspnea, Reports home oxygen Gastrointestinal: Denies abdominal pain, Denies diarrhea, Denies nausea, Denies vomiting Genitourinary: Denies dysuria, Denies hematuria Musculoskeletal: Denies myalgias Integumentary: Denies pruritus, Denies rash Neurological: Denies numbness, Denies weakness Psychiatric: Denies anxiety, Denies depression Endocrine: Denies fatigue, Denies weight change Past Medical History Past Medical History: Atrial Fibrillation, Cancer, COPD, Diabetes Mellitus, GERD/Reflux, Hypertension, Memory Impairment, Pneumonia Additional Past Medical History / Comment(s): hx. of frequent pneumonia-last time in September, back pain, neuropathy, breast cancer, paroxymal atrial fibrillation from one of the medications she is allergic to but her daughter is unsure of which one History of Any Multi-Drug Resistant Organisms: MRSA Date of last positivie culture/infection: 2009 MDRO Source:: foot Past Surgical History: Cholecystectomy, Hysterectomy, Joint Replacement, Orthopedic Surgery, Tubal Ligation Additional Past Surgical History / Comment(s): bilateral hip replaced, ankle surgery, bilateral cataract surgery, lower back surgery, planned for lung biopsy 11/15/20, gallstones removed Past Anesthesia/Blood Transfusion Reactions: Previous Problems w/ Anesthesia Additional Past Anesthesia/Blood Transfusion Reaction / Comment(s): slow to wake up post anesthesia Past Psychological History: No Psychological Hx Reported Smoking Status: Former smoker Past Alcohol Use History: None Reported Additional Past Alcohol Use History / Comment(s): quit smoking @age of 30, smoked 3ppd Past Drug Use History: None Reported - Past Family History Brother(s) Family Medical History: Cancer Father Family Medical History: Cancer Medications and Allergies Home Medications Medication Instructions Recorded Confirmed Type Anastrozole [Arimidex] 1 mg PO DAILY 08/30/20 01/26/21 History Gabapentin [Neurontin] 600 mg PO TID 08/30/20 01/26/21 History Vitamin E (Dl,Tocopheryl Acet) 400 unit PO DAILY 08/30/20 01/26/21 History [Vitamin E (400 Iu = 180 mg)] metFORMIN HCL ER [Glucophage XR] 500 mg PO BID-W/MEALS 08/30/20 01/26/21 History Cholecalciferol [Vitamin D3 (25 25 mcg PO DAILY 11/02/20 01/26/21 History Mcg = 1000 Iu)] Acetaminophen Tab [Tylenol] 500 - 1,000 mg PO Q4HR PRN 11/26/20 01/26/21 History Ipratropium-Albuterol Nebulize 3 ml INHALATION RT-Q6H PRN 11/26/20 01/26/21 History [Duoneb 0.5 mg-3 mg/3 ml Soln] [place]-3 Fatty Acids/Fish Oil [Fish 1 cap PO DAILY 11/26/20 01/26/21 History Oil 1,000 mg Softgel] Furosemide [Lasix] 20 mg PO DAILY 01/26/21 01/26/21 History HYDROcodone/APAP 5-325MG [[place] 1 tab PO Q8HR PRN 01/26/21 01/26/21 History 5-325] Allergies Allergy/AdvReac Type Severity Reaction Status Date / Time trimethoprim [From Bactrim] Allergy Unknown Unknown Verified 01/26/21 19:12 zolpidem [From Ambien] Allergy Unknown Unknown Verified 01/26/21 19:12 adhesive tape Allergy skin peels Verified 01/26/21 19:12 off,dtr states "paper tape is ok" clindamycin Allergy Unknown Verified 01/26/21 19:12 duloxetine [From Cymbalta] Allergy Unknown Verified 01/26/21 19:12 fluoxetine [From Prozac] Allergy Unknown Verified 01/26/21 19:12 haloperidol Allergy Unknown Verified 01/26/21 19:12 hydroxyzine [From Vistaril] Allergy Unknown Verified 01/26/21 19:12 levofloxacin [From Levaquin] Allergy Unknown Verified 01/26/21 19:12 lorazepam [From Ativan] Allergy Unknown Verified 01/26/21 19:12 morphine Allergy Unknown Verified 01/26/21 19:12 Penicillins Allergy Unknown Verified 01/26/21 19:12 pregabalin [From Lyrica] Allergy Unknown Verified 01/26/21 19:12 streptomycin Allergy Unknown Verified 01/26/21 19:12 Sulfa (Sulfonamide Allergy Unknown Verified 01/26/21 19:12 Antibiotics) sulfamethoxazole Allergy Unknown Verified 01/26/21 19:12 [From Bactrim] Physical Exam Vitals: Vital Signs Temp Pulse Pulse Resp BP BP Pulse Ox 01/27/21 11:14 67 15 01/27/21 10:00 98.5 F 67 15 124/73 97 01/27/21 07:00 98.6 F 71 16 157/75 93 L 01/27/21 01:34 98.3 F 69 120/71 98 01/26/21 22:42 81 16 144/87 98 01/26/21 21:12 99.4 F 69 16 113/62 98 01/26/21 19:00 93 L 01/26/21 18:45 18 01/26/21 18:21 101.6 F H 81 16 106/59 89 L Intake and Output 01/26/21 01/27/21 01/27/21 22:59 06:59 14:59 Output Total 3 Balance -3 Output: Urine 3 Other: # Voids 3 # Bowel Movements 0 Weight 83.915 kg 83.915 kg GENERAL EXAM: Alert, pleasant, oriented to self and place and time, 85-year-old white female, frail looking, on 4 L of oxygen she sat 97% comfortable in no apparent distress. HEAD: Normocephalic/atraumatic. EYES: Normal reaction of pupils, equal size. Conjunctiva pink, sclera white. NOSE: Clear with pink turbinates. THROAT: No erythema or exudates. NECK: No masses, no JVD, no thyroid enlargement, no adenopathy. CHEST: No chest wall deformity. Symmetrical expansion. LUNGS: Equal air entry with diffuse coarse inspiratory crackles throughout the lung carranza CVS: Regular rate and rhythm, normal S1 and S2, no gallops, no murmurs, no rubs ABDOMEN: Soft, nontender. No hepatosplenomegaly, normal bowel sounds, no guarding or rigidity. EXTREMITIES: No clubbing, no edema, no cyanosis, 2+ pulses and upper and lower extremities. MUSCULOSKELETAL: Muscle strength and tone normal. SPINE: No scoliosis or deformity SKIN: No rashes CENTRAL NERVOUS SYSTEM: Alert and oriented -3. No focal deficits, tone is normal in all 4 extremities. PSYCHIATRIC: Alert and oriented -3. Appropriate affect. Intact judgment and insight. Results - Laboratory Findings CBC and BMP: 01/26/21 18:38 01/27/21 07:55 PT/INR, D-dimer D-Dimer 1.86 mg/L FEU (<0.60) H 01/27/21 07:59 Abnormal lab findings: Abnormal Labs 01/26/21 01/26/21 01/26/21 18:38 18:38 18:38 WBC 11.0 H Neutrophils # 9.0 H D-Dimer Sodium 130 L Potassium 5.2 H Chloride 96 L Glucose 131 H POC Glucose (mg/dL) Calcium C-Reactive Protein Urine Appearance Urine Protein Urine Blood Urine Nitrite Ur Leukocyte Esterase Urine RBC Urine WBC Urine WBC Clumps Urine Bacteria Urine Mucus SARS-CoV-2 (PCR) Detected A 01/26/21 01/27/21 01/27/21 20:25 07:29 07:55 WBC Neutrophils # D-Dimer Sodium 132 L Potassium Chloride Glucose 234 H POC Glucose (mg/dL) 225 H Calcium 8.3 L C-Reactive Protein 6.0 H Urine Appearance Cloudy H Urine Protein Trace H Urine Blood Trace H Urine Nitrite Positive H Ur Leukocyte Esterase Large H Urine RBC 37 H Urine WBC 65 H Urine WBC Clumps Many H Urine Bacteria Many H Urine Mucus Rare H SARS-CoV-2 (PCR) 01/27/21 07:59 WBC Neutrophils # D-Dimer 1.86 H Sodium Potassium Chloride Glucose POC Glucose (mg/dL) Calcium C-Reactive Protein Urine Appearance Urine Protein Urine Blood Urine Nitrite Ur Leukocyte Esterase Urine RBC Urine WBC Urine WBC Clumps Urine Bacteria Urine Mucus SARS-CoV-2 (PCR) - Diagnostic Findings Chest x-ray: report reviewed, image reviewed Assessment and Plan Plan: Assessment: #1. Acute on chronic hypoxic respiratory failure related to acute COVID-19 re lated pneumonia. Patient presents to the emergency department on 01/26/2021 with 1 day history of fever, a few day history of increasing cough and shortness of breath. She tested positive for COVID-19 per PCR test, influenza and B screen and RSV screen were negative. She is within the window for Remdesivir we'll start her on it today on 01/27/2021 #2. History of right upper lobe lung mass, patient underwent navigational bronchoscopy and EBUS of a subcarinal lymph node, negative biopsies #3. Previous history of breast cancer #4. 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 Patient has some pulmonary fibrosis with lower lungs bronchiectasis on the CT chest #5. Acute urinary tract infection, was started on Rocephin #6. Paroxysmal atrial fibrillation not on any anticoagulation on a chronic basis #7. Previous episodes of pneumonia #8. History of MRSA infection in the foot #9. Hypertension #10. Dementia #11. Former smoker #12. Osteoarthritis with previous orthopedic surgeries Plan: Continue Decadron 6 mg daily Continue Lovenox 40 mg daily With cutback the fluids to KVO Continue COVID-19 vitamins We'll start the patient on Remdesivir Continue Rocephin for urinary tract infection We'll continue to follow her clinical course and make recommendations accordingly Obtain lower extremity Dopplers to rule out possibility of DVT I performed a history & physical examination of the patient and discussed their management with my nurse practitioner, Pao Wasserman. I reviewed the nurse practitioner's note and agree with the documented findings and plan of care. Lung sounds are positive for diffuse crackles throughout the lung carranza. The findings and the impression was discussed with the patient. I attest to the documentation by the nurse practitioner. Time with Patient: Greater than 30
[2021-01-27] MEDS: ANASTROZOLE 1 MG TAB PO SCH (12:09)
--- NOTE | 2021-01-27 12:48 | P.HPIM ---
History of Present Illness This is a pleasant 55 years old female with past medical history of COPD, Diabetes Mellitus, GERD, Hypertension, Memory Impairment,hx. of frequent pneumonia-last time in September, back pain, neuropathy, breast cancer, paroxymal atrial fibrillation not on anticoagulation. Patient is poor historian, she knows she is in the hospital but she could not tell which hospital which city. She could not tell a year or the person and she looks disoriented to her illness. She states she came because of dyspnea but she could not specify for how long. Also she is complaining of from some cough and phlegm but no chest pain at rest, she has some discomfort with coughing. She denies GI or urinary symptoms for me. No diarrhea or vomiting. No abdominal pain. No dysuria or urgency. No headache dizziness or weakness. No numbness. She denies smoking, alcohol or illicit drugs. The presentation she had a fever of 101.6, she's 94% on 4 L oxygen via nasal cannula. On admission she was saturating 88% on 2 L. Labs showed leukocytosis of 11.0, rest of CBC is unremarkable. Sodium 1:30, potassium slightly elevated at 5.2 but specimen is hemolyzed, creatinine 0.6. Liver enzymes are unremarkable. Troponins negative less than 0.02, Urine analysis is suspicious for infection. Coronavirus detected while he was at and RSV are negative. Chest x-ray, no acute process. EKG: Normal sinus rhythm at 77, QTC [address]-T changes Chest x-ray, pulmonary interstitial infiltrates Review of Systems CONSTITUTIONAL: No fever, no malaise, no fatigue. HEENT: No recent visual problems or hearing problems. Denied any sore throat. CARDIOVASCULAR: No orthopnea, PND, no palpitations, no syncope. PULMONARY: No chest wall tenderness, no hemoptysis. GASTROINTESTINAL: No diarrhea, no nausea, no vomiting, no abdominal pain. Normoactive bowel sounds. NEUROLOGICAL: No headaches, no weakness, no numbness. HEMATOLOGICAL: Denies any bleeding or petechiae. GENITOURINARY: Denies any burning micturition, frequency, or urgency. MUSCULOSKELETAL/RHEUMATOLOGICAL: Denies any joint pain, swelling, or any muscle pain. ENDOCRINE: Denies any polyuria or polydipsia. Past Medical History Past Medical History: Atrial Fibrillation, Cancer, COPD, Diabetes Mellitus, GE RD/Reflux, Hypertension, Memory Impairment, Pneumonia Additional Past Medical History / Comment(s): hx. of frequent pneumonia-last time in September, back pain, neuropathy, breast cancer, paroxymal atrial fibrillation from one of the medications she is allergic to but her daughter is unsure of which one History of Any Multi-Drug Resistant Organisms: MRSA Date of last positivie culture/infection: 2009 MDRO Source:: foot Past Surgical History: Cholecystectomy, Hysterectomy, Joint Replacement, Orthopedic Surgery, Tubal Ligation Additional Past Surgical History / Comment(s): bilateral hip replaced, ankle surgery, bilateral cataract surgery, lower back surgery, planned for lung biopsy 11/15/20, gallstones removed Past Anesthesia/Blood Transfusion Reactions: Previous Problems w/ Anesthesia Additional Past Anesthesia/Blood Transfusion Reaction / Comment(s): slow to wake up post anesthesia Past Psychological History: No Psychological Hx Reported Smoking Status: Former smoker Past Alcohol Use History: None Reported Past Drug Use History: None Reported - Past Family History Brother(s) Family Medical History: Cancer Father Family Medical History: Cancer Medications and Allergies Home Medications Medication Instructions Recorded Confirmed Type Anastrozole [Arimidex] 1 mg PO DAILY 08/30/20 01/26/21 History Gabapentin [Neurontin] 600 mg PO TID 08/30/20 01/26/21 History Vitamin E (Dl,Tocopheryl Acet) 400 unit PO DAILY 08/30/20 01/26/21 History [Vitamin E (400 Iu = 180 mg)] metFORMIN HCL ER [Glucophage XR] 500 mg PO BID-W/MEALS 08/30/20 01/26/21 History Cholecalciferol [Vitamin D3 (25 25 mcg PO DAILY 11/02/20 01/26/21 History Mcg = 1000 Iu)] Acetaminophen Tab [Tylenol] 500 - 1,000 mg PO Q4HR PRN 11/26/20 01/26/21 History Ipratropium-Albuterol Nebulize 3 ml INHALATION RT-Q6H PRN 11/26/20 01/26/21 History [Duoneb 0.5 mg-3 mg/3 ml Soln] [place]-3 Fatty Acids/Fish Oil [Fish 1 cap PO DAILY 11/26/20 01/26/21 History Oil 1,000 mg Softgel] Furosemide [Lasix] 20 mg PO DAILY 01/26/21 01/26/21 History HYDROcodone/APAP 5-325MG [[place] 1 tab PO Q8HR PRN 01/26/21 01/26/21 History 5-325] Allergies Allergy/AdvReac Type Severity Reaction Status Date / Time trimethoprim [From Bactrim] Allergy Unknown Unknown Verified 01/26/21 19:12 zolpidem [From Ambien] Allergy Unknown Unknown Verified 01/26/21 19:12 adhesive tape Allergy skin peels Verified 01/26/21 19:12 off,dtr states "paper tape is ok" clindamycin Allergy Unknown Verified 01/26/21 19:12 duloxetine [From Cymbalta] Allergy Unknown Verified 01/26/21 19:12 fluoxetine [From Prozac] Allergy Unknown Verified 01/26/21 19:12 haloperidol Allergy Unknown Verified 01/26/21 19:12 hydroxyzine [From Vistaril] Allergy Unknown Verified 01/26/21 19:12 levofloxacin [From Levaquin] Allergy Unknown Verified 01/26/21 19:12 lorazepam [From Ativan] Allergy Unknown Verified 01/26/21 19:12 morphine Allergy Unknown Verified 01/26/21 19:12 Penicillins Allergy Unknown Verified 01/26/21 19:12 pregabalin [From Lyrica] Allergy Unknown Verified 01/26/21 19:12 streptomycin Allergy Unknown Verified 01/26/21 19:12 Sulfa (Sulfonamide Allergy Unknown Verified 01/26/21 19:12 Antibiotics) sulfamethoxazole Allergy Unknown Verified 01/26/21 19:12 [From Bactrim] Physical Exam Vitals: Vital Signs Temp Pulse Pulse Resp BP BP Pulse Ox 01/27/21 01:34 98.3 F 69 120/71 98 01/26/21 22:42 81 16 144/87 98 01/26/21 21:12 99.4 F 69 16 113/62 98 01/26/21 19:00 93 L 01/26/21 18:45 18 01/26/21 18:21 101.6 F H 81 16 106/59 89 L Intake and Output 01/26/21 01/27/21 01/27/21 22:59 06:59 14:59 Output Total 3 Balance -3 Output: Urine 3 Other: # Bowel Movements 0 Weight 83.915 kg -GENERAL: The patient is alert and oriented x1 partially, not in any acute distress. Well developed, well nourished. HEENT: Pupils are round and equally reacting to light. EOMI. No scleral icterus. No conjunctival pallor. Normocephalic, atraumatic. No pharyngeal erythema. No thyromegaly. CARDIOVASCULAR: S1 and S2 present. No murmurs, rubs, or gallops. PULMONARY: Chest is clear to auscultation, no wheezing or crackles. ABDOMEN: Soft, nontender, nondistended, normoactive bowel sounds. No palpable organomegaly. MUSCULOSKELETAL: No joint swelling or deformity. EXTREMITIES: No cyanosis, clubbing, or pedal edema. NEUROLOGICAL: Gross neurological examination did not reveal any focal deficits. SKIN: No rashes. No petechiae Results CBC & Chem 7: 01/26/21 18:38 01/27/21 07:55 Labs: Abnormal Lab Results - Last 24 Hours (Table) 01/26/21 01/26/21 01/26/21 Range/Units 18:38 18:38 18:38 WBC 11.0 H (3.8-10.6) k/uL Neutrophils # 9.0 H (1.3-7.7) k/uL Sodium 130 L (137-145) mmol/L Potassium 5.2 H (3.5-5.1) mmol/L Chloride 96 L (98-107) mmol/L Glucose 131 H (74-99) mg/dL POC Glucose (mg/dL) (75-99) mg/dL Urine Appearance (Clear) Urine Protein (Negative) Urine Blood (Negative) Urine Nitrite (Negative) Ur Leukocyte Esterase (Negative) Urine RBC (0-5) /hpf Urine WBC (0-5) /hpf Urine WBC Clumps (None) /hpf Urine Bacteria (None) /hpf Urine Mucus (None) /hpf SARS-CoV-2 (PCR) Detected A (Not Detectd) 01/26/21 01/27/21 Range/Units 20:25 07:29 WBC (3.8-10.6) k/uL Neutrophils # (1.3-7.7) k/uL Sodium (137-145) mmol/L Potassium (3.5-5.1) mmol/L Chloride (98-107) mmol/L Glucose (74-99) mg/dL POC Glucose (mg/dL) 225 H (75-99) mg/dL Urine Appearance Cloudy H (Clear) Urine Protein Trace H (Negative) Urine Blood Trace H (Negative) Urine Nitrite Positive H (Negative) Ur Leukocyte Esterase Large H (Negative) Urine RBC 37 H (0-5) /hpf Urine WBC 65 H (0-5) /hpf Urine WBC Clumps Many H (None) /hpf Urine Bacteria Many H (None) /hpf Urine Mucus Rare H (None) /hpf SARS-CoV-2 (PCR) (Not Detectd) Microbiology - Last 24 Hours (Table) 01/26/21 20:25 Urine Culture - Preliminary Urine,Voided Assessment and Plan Assessment: Possible acute urinary tract infection Bilateral Covid pneumonia Acute hypoxic respiratory failure Mostly Increased inflammatory markers Diabetes mellitus Hypertension Memory impairment History of GERD COPD Chronic back pain History of neuropathy History of breast cancer History of paroxysmal atrial fibrillation Plan: This is a pleasant 85 years old female who presents with covid pneumonia Continue with dexamethasone Continue with vitamin C, vitamin D and zinc Pulmonary consult Continue with Rocephin and follow-up urine culture Gentle hydration Check TSH, vitamin B12 and folate Labs and medication were reviewed.. Continue same treatment. Continue with symptomatic treatment. Resume home medication. Monitor lytes and vitals. DVT and GI prophylaxis. Further recommendations depends on the clinical course of the patient DVT prophylaxis: Subcutaneous Lovenox GI Prophylaxis: Pepcid PT/OT: Pending Prognosis is guarded
[2021-01-27] MEDS ORDERED: REMDESIVIR 200 MG in SODIUM CHLORIDE 0.9% 250 ML IVPB ONE (13:00)
[2021-01-27 16:46] LABS: Glucose,Whole Blood 153 mg/dL (75-99)
[2021-01-27] MEDS: ALBUTEROL HFA INHALER INHALATION PRN (17:15)
[2021-01-27 20:29] LABS: Glucose,Whole Blood 194 mg/dL (75-99)
[2021-01-28] MEDS: SODIUM CHLORIDE 0.9% 1,000 ML IV SCH (02:18)
[2021-01-28 06:59] LABS: Glucose,Whole Blood 82 mg/dL (75-99)
[2021-01-28] MEDS: ALBUTEROL HFA INHALER INHALATION PRN ×3 (07:47→15:59)
[2021-01-28] MEDS: INSULIN ASPART (NovoLOG) 100 UNIT/ML VIAL SQ SCH ×4 (09:11→22:07)
[2021-01-28] MEDS: CHOLECALCIFEROL 25 MCG (1000 IU) TABLET PO SCH (09:19)
[2021-01-28] MEDS: metFORMIN 500 MG TAB PO SCH ×2 (09:19→17:33)
[2021-01-28] MEDS: HYDROcodone/APAP 5-325MG 1 EACH TAB PO PRN ×2 (09:19→18:29)
[2021-01-28] MEDS: DEXAMETHASONE SOD PHOSPHATE 10 MG/ML 1 ML VIAL IVP SCH (09:27)
[2021-01-28] MEDS: ENOXAPARIN 40 MG/0.4 ML SYRINGE SQ SCH (09:27)
[2021-01-28] MEDS: ASCORBIC ACID 500 MG TAB PO SCH (09:27)
[2021-01-28] MEDS: FAMOTIDINE 20 MG/2 ML VIAL IV SCH (09:28)
[2021-01-28] MEDS: VITAMIN E (DL,TOCOPHERYL ACET) 400 UNIT (180 MG) CAP PO SCH (09:28)
[2021-01-28] MEDS: GABAPENTIN 300 MG CAP PO SCH ×3 (09:28→22:07)
[2021-01-28] MEDS: ANASTROZOLE 1 MG TAB PO SCH (09:28)
[2021-01-28] MEDS: ZINC SULFATE 220 MG CAP PO SCH (09:28)
--- NOTE | 2021-01-28 10:34 | XR ---
EXAMINATION TYPE: XR chest 1V portable DATE OF EXAM: 01/28/2021 CLINICAL HISTORY: Difficulty breathing and covid progress study. TECHNIQUE: Single AP portable upright view of the chest is obtained. COMPARISON: Chest x-ray from 2 days earlier and older studies. FINDINGS: Improved inspiration current study. Bilateral multifocal increased opacities greatest in t he periphery redemonstrated background chronic emphysematous and pulmonary fibrotic change. Cardiac s ilhouette size stable and upper limits of normal with atherosclerotic thoracic aorta. Osseous structu res are demineralized. IMPRESSION: Chronic emphysematous and pulmonary fibrotic changes with bilateral multifocal increased opacities consistent with covid-19 are Redemonstrated. No significant change from most recent x-ray.
[2021-01-28 11:13] LABS: Glucose,Whole Blood 153 mg/dL (75-99)
[2021-01-28] MEDS: methylPREDNISolone SOD SUCCI 125 MG/2 ML VIAL IV SCH ×2 (12:10→17:33)
--- NOTE | 2021-01-28 13:09 | P.PN ---
Subjective Progress Note Date: 01/28/21 Principal diagnosis: Dyspnea, cough, hypoxia 85-year-old white female patient with past medical history of COPD, on home oxygen, paroxysmal A. fib, history of breast cancer, diabetes mellitus type 2, hypertension, dementia, previous episodes of pneumonia, previous MRSA infection in the foot, former smoker. Patient has chronic emphysematous some pulmonary fibrotic changes with lower lung bronchiectasis on her most recent CT chest from 11/30/2020. Patient had a nodular consolidation in the anterior right upper lung for which she underwent navigational bronchoscopy with biopsies and EBUS of the subcarinal lymph node, and the pathology was negative. Patient comes in to the emergency department per EMS on 01/26/2021 with a chief complaint of fever, the fever had developed in the morning. Patient is a poor historian, however she states she also had some mild dyspnea and cough and congestion although she initially did not complain of those things in the emergency department. She was also complaining of bilateral feet pain however this is no different than her usual diabetic neuropathy pain. No chest pain, no hemoptysis, patient was diagnosed with COVID-19, she states she did not receive COVID-19 vaccination. Her chest x-ray showed pulmonary interstitial infiltrates. Her lab work showed white count of 11.0, hemoglobin of 11.7, d-dimer was 1.86, sodium is 1:30, potassium is 5.2, chloride is 96, CO2 27, BUN is 15, creatinine 0.64, lactic acid was 1.1, LFTs were within normal limits, troponin was less than 0.012, proBNP was 591, CRP was 6.0, LDH was 516, urinalysis showed evidence of acute urinary tract infection, with positive nitrites, trace blood, large leuk trase, 65 of WBCs, and many bacteria. Influenza and RSV screen were negative. Patient is currently resting comfortably in bed, she has a mild congestion, lung sounds reveal diffuse coarse inspiratory crackles throughout her lungs, she is currently on 4 L of oxygen, does not appear to be in any acute distress, she is afebrile. She has been started on a combination of Decadron, Rocephin for urinary tract infection, vitamins, and prophylactic Lovenox, she is receiving IV fluids at a rate of 75 ML per hour. On 01/28/2021 patient seen in follow-up on medical surgical floor. This morning she sounds very congested, wheezy, she is currently on Decadron 6 mg daily, she is on inhaled bronchodilators, she also continues on Rocephin for urinary tract infection, she is on Lovenox 40 mg. Urine culture showing presumptive staph aureus, final culture is pending. She is currently on 4 L of oxygen pulse ox is 90-98%, afebrile, she is short of breath with any exertion, she has been mostly bedbound. She continues on IV fluids at 75 ML per hour, she does have underlying history of emphysema/COPD. She is being treated for "related pneumonia, she is on Remdesivir and today is day 2 of treatment. Objective - Vital Signs Vital signs: Vital Signs Temp 98.8 F 01/28/21 09:29 Pulse 80 01/28/21 09:29 Resp 18 01/28/21 09:29 BP 177/75 01/28/21 09:29 Pulse Ox 90 L 01/28/21 09:29 Intake & Output 01/27/21 01/28/21 01/28/21 18:59 06:59 18:59 Output Total 700 300 Balance -700 -300 Weight 83.915 kg Output: Urine 700 300 Other: Voiding Method External Catheter # Voids 3 1 # Bowel Movements 1 - Exam GENERAL EXAM: Alert, pleasant, oriented to self and place and time, 85-year-old white female, frail looking, on 4 L of oxygen she sat 97% comfortable in no apparent distress. HEAD: Normocephalic/atraumatic. EYES: Normal reaction of pupils, equal size. Conjunctiva pink, sclera white. NOSE: Clear with pink turbinates. THROAT: No erythema or exudates. NECK: No masses, no JVD, no thyroid enlargement, no adenopathy. CHEST: No chest wall deformity. Symmetrical expansion. LUNGS: Equal air entry with diffuse coarse inspiratory crackles throughout the lung carranza CVS: Regular rate and rhythm, normal S1 and S2, no gallops, no murmurs, no rubs ABDOMEN: Soft, nontender. No hepatosplenomegaly, normal bowel sounds, no guarding or rigidity. EXTREMITIES: No clubbing, no edema, no cyanosis, 2+ pulses and upper and lower extremities. MUSCULOSKELETAL: Muscle strength and tone normal. SPINE: No scoliosis or deformity SKIN: No rashes CENTRAL NERVOUS SYSTEM: Alert and oriented -3. No focal deficits, tone is normal in all 4 extremities. PSYCHIATRIC: Alert and oriented -3. Appropriate affect. Intact judgment and insight. - Labs CBC & Chem 7: 01/26/21 18:38 01/27/21 07:55 Labs: Abnormal Lab Results - Last 24 Hours (Table) 01/27/21 01/27/21 01/28/21 Range/Units 16:43 20:26 11:04 POC Glucose (mg/dL) 153 H 194 H 153 H (75-99) mg/dL Microbiology - Last 24 Hours (Table) 01/26/21 20:25 Urine Culture - Preliminary Urine,Voided Presumptive Staph aureus Assessment and Plan Plan: Assessment: #1. Acute on chronic hypoxic respiratory failure related to acute COVID-19 related pneumonia. Patient presents to the emergency department on 01/26/2021 with 1 day history of fever, a few day history of increasing cough and shortness of breath. She tested positive for COVID-19 per PCR test, influenza and B screen and RSV screen were negative. She is within the window for Remdesivir we'll start her on it today on 01/27/2021 #2. History of right upper lobe lung mass, patient underwent navigational bronchoscopy and EBUS of a subcarinal lymph node, negative biopsies #3. Previous history of breast cancer #4. 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 Patient has some pulmonary fibrosis with lower lungs bronchiectasis on the CT chest #5. Acute urinary tract infection, was started on Rocephin #6. Paroxysmal atrial fibrillation not on any anticoagulation on a chronic basis #7. Previous episodes of pneumonia #8. History of MRSA infection in the foot #9. Hypertension #10. Dementia #11. Former smoker #12. Osteoarthritis with previous orthopedic surgeries Plan: Patient sounds more dyspneic and congested on today's exam We'll switch Decadron to IV Solu-Medrol 60 mg every 6 hours Continue Lovenox 40 mg daily Continue Remdesivir, today is day 2 of treatment Patient continues on Rocephin for urinary tract infection, urine culture is showing presumptive staph aureus Will await final culture We'll obtain lower extremity Dopplers Obtain follow-up labs tomorrow including inflammatory markers, d-dimer, and basic labs I performed a history & physical examination of the patient and discussed their management with my nurse practitioner, Pao Wasserman. I reviewed the nurse practitioner's note and agree with the documented findings and plan of care. Lung sounds are positive for diffuse crackles throughout the lung carranza. The findings and the impression was discussed with the patient. I attest to the documentation by the nurse practitioner. Time with Patient: Less than 30
[2021-01-28] MEDS: REMDESIVIR 100 MG in SODIUM CHLORIDE 0.9% 250 ML IVPB SCH (13:30)
--- NOTE | 2021-01-28 14:27 | US ---
EXAMINATION TYPE: US venous doppler duplex LE DATE OF EXAM: 01/28/2021 2:09 PM COMPARISON: NONE CLINICAL HISTORY: 85-year-old female elevated d-dimer. SIDE PERFORMED: Bilateral TECHNIQUE: The lower extremity deep venous system is examined utilizing real time linear array sonog ernie with graded compression, doppler sonography and color-flow sonography. FINDINGS: VESSELS IMAGED: Common Femoral Vein Deep Femoral Vein Greater Saphenous Vein * Femoral Vein Popliteal Vein Small Saphenous Vein * Proximal Calf Veins (* superficial vessels) Right Leg: Policy Cancellation Clerk notes: Unable to obtain compression views in right groin due to patient positi on. Otherwise, negative for DVT Left Leg: Negative for DVT IMPRESSION: Some limitation due to patient positioning. Unable to obtain compression views at the right groin. Ot herwise, no evidence for DVT within the bilateral lower extremities imaged from the groin to the uppe r calves.
[2021-01-28 16:11] LABS: Glucose,Whole Blood 239 mg/dL (75-99)
--- NOTE | 2021-01-28 18:15 | P.PN ---
Progress Note - Text Progress Note Date: 01/28/21 Hospital course: This is a pleasant 55 years old female with past medical history of COPD, Diabet es Mellitus, GERD, Hypertension, Memory Impairment,hx. of frequent pneumonia- last time in September, back pain, neuropathy, breast cancer, paroxymal atrial fibrillation not on anticoagulation. Patient is poor historian, she knows she is in the hospital but she could not tell which hospital which city. She could not tell a year or the person and she looks disoriented to her illness. She states she came because of dyspnea but she could not specify for how long. Also she is complaining of from some cough and phlegm but no chest pain at rest, she has some discomfort with coughing. She denies GI or urinary symptoms for me. No diarrhea or vomiting. No abdominal pain. No dysuria or urgency. No headache dizziness or weakness. No numbness. She denies smoking, alcohol or illicit drugs. The presentation she had a fever of 101.6, she's 94% on 4 L oxygen via nasal cannula. On admission she was saturating 88% on 2 L. tested positive for COVID- 19 January 28: On 4 L of nasal cannula. Eating some. Decreased appetite. Some cough and shortness of breath. Review of systems: Was done for constitutional, cardiovascular, GI, pulmonary. relevant finding as above Active Medications Acetaminophen (Acetaminophen Tab 325 Mg Tab) 650 mg PO Q6HR PRN PRN Reason: Mild Pain or Fever > 100.5 Hydrocodone Bitart/Acetaminophen (Hydrocodone/Apap 5-325mg 1 Each Tab) 1 each PO Q8HR PRN PRN Reason: Pain Last Admin: 01/28/21 09:19 Dose: 1 each Documented by: Albuterol Sulfate (Albuterol Hfa Inhaler) 2 puff INHALATION RT-Q6H PRN PRN Reason: Shortness Of Breath Last Admin: 01/28/21 15:59 Dose: 2 puff Documented by: Anastrozole (Anastrozole 1 Mg Tab) 1 mg PO DAILY [facility] Last Admin: 01/28/21 09:28 Dose: 1 mg Documented by: Ascorbic Acid (Ascorbic Acid 500 Mg Tab) 1,000 mg PO DAILY [facility] Last Admin: 01/28/21 09:27 Dose: 1,000 mg Documented by: Cholecalciferol (Cholecalciferol 25 Mcg (1000 Iu) Tablet) 25 mcg PO DAILY [facility] Last Admin: 01/28/21 09:19 Dose: 25 mcg Documented by: Enoxaparin Sodium (Enoxaparin 40 Mg/0.4 Ml Syringe) 40 mg SQ DAILY [facility] Last Admin: 01/28/21 09:27 Dose: 40 mg Documented by: Famotidine (Famotidine 20 Mg/2 Ml Vial) 20 mg IV Q12HR [facility] Last Admin: 01/28/21 09:28 Dose: 20 mg Documented by: Gabapentin (Gabapentin 300 Mg Cap) 600 mg PO TID [facility] Last Admin: 01/28/21 16:19 Dose: 600 mg Documented by: Sodium Chloride (Saline 0.9%) 1,000 mls @ 20 mls/hr IV .Q24H [facility] Last Admin: 01/28/21 02:18 Dose: 20 mls/hr Documented by: Ceftriaxone Sodium 1 gm/ (Sodium Chloride) 50 mls @ 100 mls/hr IVPB Q24H [facility] Last Admin: 01/28/21 17:33 Dose: 100 mls/hr Documented by: Remdesivir 100 mg/ Sodium (Chloride) 250 mls @ 250 mls/hr IVPB DAILY@1300 [facility] Stop: 01/31/21 13:59 Last Admin: 01/28/21 13:30 Dose: 250 mls/hr Documented by: Insulin Aspart (Insulin Aspart (Novolog) 100 Unit/Ml Vial) 0 unit SQ ACHS [facility]; Protocol Last Admin: 01/28/21 16:41 Dose: 3 unit Documented by: Metformin HCl (Metformin 500 Mg Tab) 500 mg PO BID-W/MEALS [facility] Last Admin: 01/28/21 17:33 Dose: 500 mg Documented by: Methylprednisolone Sodium Succinate (Methylprednisolone Sod Succi 125 Mg/2 Ml Vial) 60 mg IV Q6HR [facility] Last Admin: 01/28/21 17:33 Dose: 60 mg Documented by: Naloxone HCl (Naloxone 0.4 Mg/Ml 1 Ml Vial) 0.2 mg IV Q2M PRN PRN Reason: Opioid Reversal Ondansetron HCl (Ondansetron 4 Mg/2 Ml Vial) 4 mg IVP Q8HR PRN PRN Reason: Nausea And Vomiting Tiotropium [place] (Tiotropium 2.5 Mcg Inhaler) 2 puff INHALATION RT-DAILY PRN PRN Reason: Shortness Of Breath Vitamin E (Vitamin E (Dl,Tocopheryl Acet) 400 Unit (180 Mg) Cap) 400 unit PO DAILY [facility] Last Admin: 01/28/21 09:28 Dose: 400 unit Documented by: Zinc Sulfate (Zinc Sulfate 220 Mg Cap) 220 mg PO DAILY [facility] Last Admin: 01/28/21 09:28 Dose: 220 mg Documented by: On examination: VITAL SIGNS: [98.8, 80, 18, 126/74, 92% on 4 L] GENERAL APPEARANCE: Reclining bed, awake, tired RESPIRATORY: Respiratory effort increased NEURO: Cranial nerves grossly intact. Moving all 4 limbs PSYCHIATRY: Answering some questions Rest of the exam per pulmonary and nursing INVESTIGATIONS, reviewed in the clinical context: D-dimer 1.86 Sodium 132 potassium 4.8 creatinine 0.55 B12 797 folate 16.6 procalcitonin 0.08 TSH 2.3 UA positive for leukoesterase WBC WBC 11 hemoglobin 11.7 platelets 250 Assessment and plan: -Acute severe COVID 19 pneumonitis IV Solu-Medrol, IV Remdesivir, -Acute hypoxic respiratory failure from COVID 19 pneumonitis: Slow to respond On 4 L of nasal cannula -Acute UTI with cystitis IV ceftriaxone. Changed to by mouth Keflex -Acute COPD exacerbation Solu-Medrol. Ventolin HFA -Diabetes mellitus type 2, on oral hypoglycemic, uncontrolled hyperglycemia from steroids Metformin 500 mg 3 times a day. Follow Accu-Cheks -GERD -Cognitive impairment -Peripheral neuropathy from diabetes Neurontin 600 mg 3 times a day -Mild hyponatremia Encourage oral intake IV Remdesivir. Oxygen 4 L. IV Solu-Medrol. Bronchodilators. Follow Accu- Cheks. Stop IV ceftriaxone. Changed to by mouth Keflex.
[2021-01-28] MEDS: ALBUTEROL HFA INHALER INHALATION SCH (20:26)
[2021-01-28 21:04] LABS: Glucose,Whole Blood 276 mg/dL (75-99)
[2021-01-28] MEDS: CEPHALEXIN 250 MG CAP PO SCH (22:07)
[2021-01-28] MEDS: FAMOTIDINE 20 MG TAB PO SCH (22:07)
[2021-01-29] MEDS: methylPREDNISolone SOD SUCCI 125 MG/2 ML VIAL IV SCH ×4 (00:51→17:29)
[2021-01-29] MEDS: SODIUM CHLORIDE 0.9% 1,000 ML IV SCH (00:53)
[2021-01-29] MEDS: ALBUTEROL HFA INHALER INHALATION SCH ×4 (03:54→20:12)
[2021-01-29] MEDS: HYDROcodone/APAP 5-325MG 1 EACH TAB PO PRN ×2 (06:09→13:10)
[2021-01-29 06:53] LABS: Glucose,Whole Blood 191 mg/dL (75-99)
[2021-01-29 07:47] LABS: Basophils % (A) 0 %; Eosinophils % (A) 0 %; HCT 37.5 % (34.0-46.0); HGB 11.7 gm/dL (11.4-16.0); Hypochromasia Slight; Lymphocytes # (A) 0.7 k/uL (1.0-4.8); Lymphocytes % (A) 13 %; MCH 29.5 pg (25.0-35.0); MCHC 31.1 g/dL (31.0-37.0); MCV 94.7 fL (80.0-100.0); Mean Platelet Volume 8.1; Monocytes # (A) 0.2 k/uL (0-1.0); Monocytes % (A) 4 %; Neutrophils # (A) 4.2 k/uL (1.3-7.7); Neutrophils % (A) 82 %; Platelet Count 244 k/uL (150-450); RBC 3.96 m/uL (3.80-5.40); RDW 14.6 % (11.5-15.5); WBC 5.1 k/uL (3.8-10.6)
[2021-01-29 07:51] LABS: African American GFR (CKD) >90 (>60 ml/min/1.73 sqM); Anion Gap 12 mmol/L; Blood Urea Nitrogen 21 mg/dL (7-17); C Reactive Protein 5.6 mg/dL (<1.0); Calcium 8.4 mg/dL (8.4-10.2); Carbon Dioxide 24 mmol/L (22-30); Chloride 101 mmol/L (98-107); Glucose 177 mg/dL (74-99); LDH 576 U/L (313-618); Non-African American GFR(CKD) 84 (>60 ml/min/1.73 sqM); Potassium 4.7 mmol/L (3.5-5.1); Sodium 137 mmol/L (137-145)
--- NOTE | 2021-01-29 08:57 | XR ---
EXAMINATION TYPE: XR chest 1V portable DATE OF EXAM: 01/29/2021 COMPARISON: 01/28/2021 HISTORY: 86 years Female. STUDY INDICATION GIVEN: covid . TECHNIQUE: AP upright chest radiograph IMPRESSION: Interval increase in bilateral right greater than left patchy airspace and interstitial opacities. Due to the difference in appearance I recommend correlation with clinical status for pulmonary arteri al embolism. Obtain chest CT PE as needed. No pneumothorax or large effusion. Trace bilateral effusion is suspected. The cardiomediastinal silhouette is within normal limits. Advanced osteopenia without acute osseous abnormality again seen. Osseous structures are unchanged co mpared to prior.
[2021-01-29] MEDS: ASCORBIC ACID 500 MG TAB PO SCH (09:42)
[2021-01-29] MEDS: INSULIN ASPART (NovoLOG) 100 UNIT/ML VIAL SQ SCH ×5 (09:42→21:38)
[2021-01-29] MEDS: ZINC SULFATE 220 MG CAP PO SCH (09:42)
[2021-01-29] MEDS: FAMOTIDINE 20 MG TAB PO SCH ×2 (09:42→21:38)
[2021-01-29] MEDS: CHOLECALCIFEROL 25 MCG (1000 IU) TABLET PO SCH (09:42)
[2021-01-29] MEDS: CEPHALEXIN 250 MG CAP PO SCH ×2 (09:42→14:05)
[2021-01-29] MEDS: metFORMIN 500 MG TAB PO SCH ×2 (09:42→17:28)
[2021-01-29] MEDS: GABAPENTIN 300 MG CAP PO SCH ×4 (09:42→21:38)
[2021-01-29] MEDS: ENOXAPARIN 40 MG/0.4 ML SYRINGE SQ SCH (09:43)
[2021-01-29] MEDS: VITAMIN E (DL,TOCOPHERYL ACET) 400 UNIT (180 MG) CAP PO SCH (09:43)
[2021-01-29] MEDS: ANASTROZOLE 1 MG TAB PO SCH (09:43)
[2021-01-29 09:52] LABS: Glucose,Whole Blood 178 mg/dL (75-99)
[2021-01-29 11:53] LABS: Glucose,Whole Blood 239 mg/dL (75-99)
[2021-01-29] MEDS: REMDESIVIR 100 MG in SODIUM CHLORIDE 0.9% 250 ML IVPB SCH (14:05)
--- NOTE | 2021-01-29 15:22 | P.PN ---
Progress Note - Text Progress Note Date: 01/29/21 Hospital course: This is a pleasant 55 years old female with past medical history of COPD, Diabe wilda Mellitus, GERD, Hypertension, Memory Impairment,hx. of frequent pneumonia- last time in September, back pain, neuropathy, breast cancer, paroxymal atrial fibrillation not on anticoagulation. Patient is poor historian, she knows she is in the hospital but she could not tell which hospital which city. She could not tell a year or the person and she looks disoriented to her illness. She states she came because of dyspnea but she could not specify for how long. Also she is complaining of from some cough and phlegm but no chest pain at rest, she has some discomfort with coughing. She denies GI or urinary symptoms for me. No diarrhea or vomiting. No abdominal pain. No dysuria or urgency. No headache dizziness or weakness. No numbness. She denies smoking, alcohol or illicit drugs. The presentation she had a fever of 101.6, she's 94% on 4 L oxygen via nasal cannula. On admission she was saturating 88% on 2 L. tested positive for COVID- 19 January 28: On 4 L of nasal cannula. Eating some. Decreased appetite. Some cough and shortness of breath. January 29: Some cough and shortness breath. Son is visiting. 4 L of oxygen. Oral intake better about 75%. Review of systems: Was done for constitutional, cardiovascular, GI, pulmonary. relevant finding as above Active Medications Acetaminophen (Acetaminophen Tab 325 Mg Tab) 650 mg PO Q6HR PRN PRN Reason: Mild Pain or Fever > 100.5 Hydrocodone Bitart/Acetaminophen (Hydrocodone/Apap 5-325mg 1 Each Tab) 1 each PO Q8HR PRN PRN Reason: Pain Last Admin: 01/29/21 13:10 Dose: 1 each Documented by: Albuterol Sulfate (Albuterol Hfa Inhaler) 2 puff INHALATION RT-Q6H [facility] Last Admin: 01/29/21 11:52 Dose: 2 puff Documented by: Anastrozole (Anastrozole 1 Mg Tab) 1 mg PO DAILY [facility] Last Admin: 01/29/21 09:43 Dose: 1 mg Documented by: Ascorbic Acid (Ascorbic Acid 500 Mg Tab) 1,000 mg PO DAILY [facility] Last Admin: 01/29/21 09:42 Dose: 1,000 mg Documented by: Cephalexin (Cephalexin 250 Mg Cap) 250 mg PO QID [facility] Stop: 01/31/21 18:01 Last Admin: 01/29/21 14:05 Dose: 250 mg Documented by: Cholecalciferol (Cholecalciferol 25 Mcg (1000 Iu) Tablet) 25 mcg PO DAILY [facility] Last Admin: 01/29/21 09:42 Dose: 25 mcg Documented by: Enoxaparin Sodium (Enoxaparin 40 Mg/0.4 Ml Syringe) 40 mg SQ DAILY [facility] Last Admin: 01/29/21 09:43 Dose: 40 mg Documented by: Famotidine (Famotidine 20 Mg Tab) 20 mg PO BID [facility] Last Admin: 01/29/21 09:42 Dose: 20 mg Documented by: Gabapentin (Gabapentin 300 Mg Cap) 600 mg PO TID [facility] Last Admin: 01/29/21 10:08 Dose: 600 mg Documented by: Sodium Chloride (Saline 0.9%) 1,000 mls @ 20 mls/hr IV .Q24H [facility] Last Admin: 01/29/21 00:53 Dose: Not Given Documented by: Remdesivir 100 mg/ Sodium (Chloride) 250 mls @ 250 mls/hr IVPB DAILY@1300 [facility] Stop: 01/31/21 13:59 Last Admin: 01/29/21 14:05 Dose: 250 mls/hr Documented by: Insulin Aspart (Insulin Aspart (Novolog) 100 Unit/Ml Vial) 0 unit SQ [facility]; Protocol Last Admin: 01/29/21 13:25 Dose: 3 unit Documented by: Metformin HCl (Metformin 500 Mg Tab) 500 mg PO BID-W/MEALS [facility] Last Admin: 01/29/21 09:42 Dose: 500 mg Documented by: Methylprednisolone Sodium Succinate (Methylprednisolone Sod Succi 125 Mg/2 Ml Vial) 60 mg IV Q6HR [facility] Last Admin: 01/29/21 12:58 Dose: 60 mg Documented by: Naloxone HCl (Naloxone 0.4 Mg/Ml 1 Ml Vial) 0.2 mg IV Q2M PRN PRN Reason: Opioid Reversal Ondansetron HCl (Ondansetron 4 Mg/2 Ml Vial) 4 mg IVP Q8HR PRN PRN Reason: Nausea And Vomiting Vitamin E (Vitamin E (Dl,Tocopheryl Acet) 400 Unit (180 Mg) Cap) 400 unit PO DAILY [facility] Last Admin: 01/29/21 09:43 Dose: 400 unit Documented by: Zinc Sulfate (Zinc Sulfate 220 Mg Cap) 220 mg PO DAILY [facility] Last Admin: 01/29/21 09:42 Dose: 220 mg Documented by: On examination: VITAL SIGNS: 97.9, 74, 18, 110/68, 91% on 4 L GENERAL APPEARANCE: Reclining bed, awake, RESPIRATORY: Respiratory effort increased NEURO: Cranial nerves grossly intact. Moving all 4 limbs PSYCHIATRY: Answering some questions Rest of the exam per pulmonary and nursing INVESTIGATIONS, reviewed in the clinical context: January 29: White count 5.1 hemoglobin 11.7 d-dimer 1.78 potassium 4.7 creatinine 0.56 CRP 5.6 D-dimer 1.86 Sodium 132 potassium 4.8 creatinine 0.55 B12 797 folate 16.6 procalcitonin 0.08 TSH 2.3 UA positive for leukoesterase WBC WBC 11 hemoglobin 11.7 platelets 250 Assessment and plan: -Acute severe COVID 19 pneumonitis: Slow to respond IV Solu-Medrol, IV Remdesivir, -Acute hypoxic respiratory failure from COVID 19 pneumonitis: Slow to respond On 4 L of nasal cannula -Acute UTI with cystitis, from MRSA Nitrofurantoin 100 mg twice a day -Acute COPD exacerbation Solu-Medrol. Ventolin HFA -Diabetes mellitus type 2, on oral hypoglycemic, uncontrolled hyperglycemia from steroids Metformin 500 mg 3 times a day. Follow Accu-Cheks -GERD -Cognitive impairment -Peripheral neuropathy from diabetes Neurontin 600 mg 3 times a day -Mild hyponatremia Encourage oral intake IV Remdesivir. Oxygen 4 L. IV Solu-Medrol. Bronchodilators. Stop Keflex. Start nitrofurantoin.. Spoke to the patient and the son. Up in chair as tolerated. Incentive spirometry.
--- NOTE | 2021-01-29 15:49 | P.PN ---
Subjective Progress Note Date: 01/29/21 85-year-old white female patient with past medical history of COPD, on home oxygen, paroxysmal A. fib, history of breast cancer, diabetes mellitus type 2, hypertension, dementia, previous episodes of pneumonia, previous MRSA infection in the foot, former smoker. Patient has chronic emphysematous some pulmonary fibrotic changes with lower lung bronchiectasis on her most recent CT chest from 11/30/2020. Patient had a nodular consolidation in the anterior right upper lung for which she underwent navigational bronchoscopy with biopsies and EBUS of the subcarinal lymph node, and the pathology was negative. Patient comes in to the emergency department per EMS on 01/26/2021 with a chief complaint of fever, the fever had developed in the morning. Patient is a poor historian, however she states she also had some mild dyspnea and cough and congestion although she initially did not complain of those things in the emergency department. She was also complaining of bilateral feet pain however this is no different than her usual diabetic neuropathy pain. No chest pain, no hemoptysis, patient was di agnosed with COVID-19, she states she did not receive COVID-19 vaccination. Her chest x-ray showed pulmonary interstitial infiltrates. Her lab work showed white count of 11.0, hemoglobin of 11.7, d-dimer was 1.86, sodium is 1:30, potassium is 5.2, chloride is 96, CO2 27, BUN is 15, creatinine 0.64, lactic acid was 1.1, LFTs were within normal limits, troponin was less than 0.012, proBNP was 591, CRP was 6.0, LDH was 516, urinalysis showed evidence of acute urinary tract infection, with positive nitrites, trace blood, large leuk trase, 65 of WBCs, and many bacteria. Influenza and RSV screen were negative. Patient is currently resting comfortably in bed, she has a mild congestion, lung sounds reveal diffuse coarse inspiratory crackles throughout her lungs, she is currently on 4 L of oxygen, does not appear to be in any acute distress, she is afebrile. She has been started on a combination of Decadron, Rocephin for urinary tract infection, vitamins, and prophylactic Lovenox, she is receiving IV fluids at a rate of 75 ML per hour. On 01/28/2021 patient seen in follow-up on medical surgical floor. This morning she sounds very congested, wheezy, she is currently on Decadron 6 mg daily, she is on inhaled bronchodilators, she also continues on Rocephin for urinary tract infection, she is on Lovenox 40 mg. Urine culture showing presumptive staph aureus, final culture is pending. She is currently on 4 L of oxygen pulse ox is 90-98%, afebrile, she is short of breath with any exertion, she has been mostly bedbound. She continues on IV fluids at 75 ML per hour, she does have u nderlying history of emphysema/COPD. She is being treated for "related pneumonia, she is on Remdesivir and today is day 2 of treatment. The patient is seen today 01/29/2021 in follow-up on the regular medical floor. She is currently sitting up in bed. Awake and alert in no acute distress. Her son is visiting at the bedside. No worsening shortness of breath, cough or congestion. She is maintaining O2 saturations in the 90s on 4 L/m per nasal cannula. She is still with coarse crackles bilaterally. X-ray continues to show bilateral right greater than left patchy airspace and interstitial opacities. Dopplers of the lower extremity were negative for DVT. White count 5.1. Hemoglobin 11.7. Hemocyte 0.7. D-dimer 1.78. Sodium 137. Potassium 4.7. Creatinine 0.56. LDH 576. C-reactive protein 5.6. Glucose 177. She is continued on Lovenox, IV Solu-Medrol, bronchodilators and vitamin supplements. This is day #3 of Remdesivir Objective - Vital Signs Vital signs: Vital Signs Temp 97.9 F 01/29/21 14:46 Pulse 74 01/29/21 14:46 Resp 18 01/29/21 14:46 BP 110/68 01/29/21 14:46 Pulse Ox 91 L 01/29/21 14:46 Intake & Output 01/28/21 01/29/21 01/29/21 18:59 06:59 18:59 Intake Total 1080 Output Total 300 500 Balance 780 -500 Intake: Intake, IV Titration 540 Amount Remdesivir 100 mg In 250 Sodium Chloride 0.9% 250 ml @ 250 mls/hr IVPB DAILY@1300 [facility] Rx#: [id number] Sodium Chloride 0.9% 1, 240 000 ml @ 20 mls/hr IV . Q24H [facility] Rx#:[id number] cefTRIAXone 1 gm In 50 Sodium Chloride 0.9% 50 ml @ 100 mls/hr IVPB Q24H [facility] Rx#:[id number] Oral 540 Output: Urine 300 500 Other: Voiding Method External Catheter External Catheter External Catheter # Voids 1 # Bowel Movements 1 3 - Exam GENERAL EXAM: Alert, pleasant, oriented to self and place and time, 85-year-old female, frail looking, on 4 L of oxygen, comfortable in no apparent distress. HEAD: Normocephalic/atraumatic. EYES: Normal reaction of pupils, equal size. Conjunctiva pink, sclera white. NOSE: Clear with pink turbinates. THROAT: No erythema or exudates. NECK: No masses, no JVD, no thyroid enlargement, no adenopathy. CHEST: No chest wall deformity. Symmetrical expansion. LUNGS: Equal air entry with diffuse coarse inspiratory crackles, scattered rhonchi throughout the lung carranza CVS: Regular rate and rhythm, normal S1 and S2, no gallops, no murmurs, no rubs ABDOMEN: Soft, nontender. No hepatosplenomegaly, normal bowel sounds, no guarding or rigidity. EXTREMITIES: No clubbing, no edema, no cyanosis, 2+ pulses and upper and lower extremities. MUSCULOSKELETAL: Muscle strength and tone normal. SPINE: No scoliosis or deformity SKIN: No rashes CENTRAL NERVOUS SYSTEM: No focal deficits, tone is normal in all 4 extremities. PSYCHIATRIC: Alert and oriented -3. Appropriate affect. Intact judgment and insight. - Labs CBC & Chem 7: 01/29/21 06:36 01/29/21 06:36 Labs: Abnormal Lab Results - Last 24 Hours (Table) 01/28/21 01/28/21 01/29/21 Range/Units 16:09 21:02 06:36 Lymphocytes # (1.0-4.8) k/uL D-Dimer 1.78 H (<0.60) mg/L FEU BUN (7-17) mg/dL Glucose (74-99) mg/dL POC Glucose (mg/dL) 239 H 276 H (75-99) mg/dL C-Reactive Protein (<1.0) mg/dL 01/29/21 01/29/21 01/29/21 Range/Units 06:36 06:36 06:51 Lymphocytes # 0.7 L (1.0-4.8) k/uL D-Dimer (<0.60) mg/L FEU BUN 21 H (7-17) mg/dL Glucose 177 H (74-99) mg/dL POC Glucose (mg/dL) 191 H (75-99) mg/dL C-Reactive Protein 5.6 H (<1.0) mg/dL 01/29/21 01/29/21 Range/Units 09:41 11:52 Lymphocytes # (1.0-4.8) k/uL D-Dimer (<0.60) mg/L FEU BUN (7-17) mg/dL Glucose (74-99) mg/dL POC Glucose (mg/dL) 178 H 239 H (75-99) mg/dL C-Reactive Protein (<1.0) mg/dL Microbiology - Last 24 Hours (Table) 01/26/21 20:25 Urine Culture - Final Urine,Voided Methicillin resist S. aureus Assessment and Plan Assessment: 1 Acute on chronic hypoxic respiratory failure related to acute COVID-19 related pneumonia. Patient presents to the emergency department on 01/26/2021 with 1 day history of fever, a few day history of increasing cough and shortness of breath. She tested positive for COVID-19 per PCR test, influenza and B screen and RSV screen were negative. She is within the window for Remdesivir and started on 01/27/2021 2 History of right upper lobe lung mass, patient underwent navigational bronchoscopy and EBUS of a subcarinal lymph node, negative biopsies 3 Previous history of breast cancer 4 Severe COPD/emphysema on home oxygen. Patient has some pulmonary fibrosis with lower lungs bronchiectasis on the CT chest 5 Acute urinary tract infection, was started on Rocephin him a cultures are positive for MRSA and antibiotics changed to Macrobid 6 Paroxysmal atrial fibrillation not on any anticoagulation on a chronic basis 7 Previous episodes of pneumonia 8 History of MRSA infection in the foot 9 Hypertension 10. Dementia 11 Former smoker 12 Osteoarthritis with previous orthopedic surgeries Plan: The patient was seen and evaluated Chest x-ray and labs reviewed Currently stable and on 4 L nasal cannula Continued on Lovenox, Solu-Medrol, vitamin supplement Continuing on Remdesivir day #3 Urine culture positive for MRSA Antibiotics changed to Macrobid per medicine We will continue to follow I, the cosigning physician, performed a history & physical examination of the patient. Lungs sounds at bases, bilateral scattered rhonchi. Maintaining O2 saturations in the 90s on 4 L/m per nasal cannula. I discussed the assessment and plan of care with my nurse practitioner, Katie Vegas. I attest to the above note as dictated by her.
[2021-01-29 16:42] LABS: Glucose,Whole Blood 293 mg/dL (75-99)
[2021-01-29 20:33] LABS: Glucose,Whole Blood 196 mg/dL (75-99)
[2021-01-29] MEDS: NITROFURANTOIN MONOHYD/M-CRYST 100 MG CAP PO SCH (21:37)
[2021-01-30] MEDS: methylPREDNISolone SOD SUCCI 125 MG/2 ML VIAL IV SCH ×2 (00:57→05:36)
[2021-01-30] MEDS: SODIUM CHLORIDE 0.9% 1,000 ML IV SCH (01:02)
[2021-01-30] MEDS: HYDROcodone/APAP 5-325MG 1 EACH TAB PO PRN ×2 (05:33→18:08)
[2021-01-30 07:02] LABS: Glucose,Whole Blood 194 mg/dL (75-99)
[2021-01-30] MEDS: ZINC SULFATE 220 MG CAP PO SCH (07:55)
[2021-01-30] MEDS: ANASTROZOLE 1 MG TAB PO SCH (07:55)
[2021-01-30] MEDS: ENOXAPARIN 40 MG/0.4 ML SYRINGE SQ SCH (07:55)
[2021-01-30] MEDS: CHOLECALCIFEROL 25 MCG (1000 IU) TABLET PO SCH (07:55)
[2021-01-30] MEDS: FAMOTIDINE 20 MG TAB PO SCH ×2 (07:55→21:06)
[2021-01-30] MEDS: INSULIN ASPART (NovoLOG) 100 UNIT/ML VIAL SQ SCH ×4 (07:55→21:06)
[2021-01-30] MEDS: metFORMIN 500 MG TAB PO SCH ×2 (07:55→17:20)
[2021-01-30] MEDS: GABAPENTIN 300 MG CAP PO SCH ×3 (07:55→21:06)
[2021-01-30] MEDS: ASCORBIC ACID 500 MG TAB PO SCH (07:55)
[2021-01-30] MEDS: VITAMIN E (DL,TOCOPHERYL ACET) 400 UNIT (180 MG) CAP PO SCH (07:55)
[2021-01-30] MEDS: NITROFURANTOIN MONOHYD/M-CRYST 100 MG CAP PO SCH ×2 (07:55→21:07)
[2021-01-30] MEDS: ALBUTEROL HFA INHALER INHALATION SCH ×4 (08:29→20:42)
--- NOTE | 2021-01-30 10:56 | P.PN ---
Subjective Progress Note Date: 01/30/21 Principal diagnosis: Dyspnea, cough, hypoxia 85-year-old white female patient with past medical history of COPD, on home oxygen, paroxysmal A. fib, history of breast cancer, diabetes mellitus type 2, hypertension, dementia, previous episodes of pneumonia, previous MRSA infection in the foot, former smoker. Patient has chronic emphysematous some pulmonary fibrotic changes with lower lung bronchiectasis on her most recent CT chest from 11/30/2020. Patient had a nodular consolidation in the anterior right upper lung for which she underwent navigational bronchoscopy with biopsies and EBUS of the subcarinal lymph node, and the pathology was negative. Patient comes in to the emergency department per EMS on 01/26/2021 with a chief complaint of fever, the fever had developed in the morning. Patient is a poor historian, however she states she also had some mild dyspnea and cough and congestion although she initially did not complain of those things in the emergency department. She was also complaining of bilateral feet pain however this is no different than her usual diabetic neuropathy pain. No chest pain, no hemoptysis, patient was diagnosed with COVID-19, she states she did not receive COVID-19 vaccination. Her chest x-ray showed pulmonary interstitial infiltrates. Her lab work showed white count of 11.0, hemoglobin of 11.7, d-dimer was 1.86, sodium is 1:30, potassium is 5.2, chloride is 96, CO2 27, BUN is 15, creatinine 0.64, lactic acid was 1.1, LFTs were within normal limits, troponin was less than 0.012, proBNP was 591, CRP was 6.0, LDH was 516, urinalysis showed evidence of acute urinary tract infection, with positive nitrites, trace blood, large leuk trase, 65 of WBCs, and many bacteria. Influenza and RSV screen were negative. Patient is currently resting comfortably in bed, she has a mild congestion, lung sounds reveal diffuse coarse inspiratory crackles throughout her lungs, she is currently on 4 L of oxygen, does not appear to be in any acute distress, she is afebrile. She has been started on a combination of Decadron, Rocephin for urinary tract infection, vitamins, and prophylactic Lovenox, she is receiving IV fluids at a rate of 75 ML per hour. On 01/28/2021 patient seen in follow-up on medical surgical floor. This morning she sounds very congested, wheezy, she is currently on Decadron 6 mg daily, she is on inhaled bronchodilators, she also continues on Rocephin for urinary tract infection, she is on Lovenox 40 mg. Urine culture showing presumptive staph aureus, final culture is pending. She is currently on 4 L of oxygen pulse ox is 90-98%, afebrile, she is short of breath with any exertion, she has been mostly bedbound. She continues on IV fluids at 75 ML per hour, she does have underlying history of emphysema/COPD. She is being treated for "related pneumonia, she is on Remdesivir and today is day 2 of treatment. On 01/30/2021 patient seen in follow-up on medical surgical floor. Bradycardia seems to have improved, less congested, does not appear to be in any respiratory distress, she is currently on 4 L of oxygen pulse ox is 97%, this can probably be titrated further down. Lung sounds reveal bibasilar crackles, no wheezing. She's been afebrile, vital signs have been stable, he continues on Remdesivir, today is day 4 of treatment, IV Solu-Medrol 60 mg every 6 hours, and prophylactic dose Lovenox, patient was discovered to have MRSA urinary tract infection, and started on Macrobid. Today she is complaining of pain in her right upper quadrant, but abdomen is soft, no nausea or vomiting, no diarrhea. She will be given some oral pain medications and will be monitored for any progression in her symptoms. Objective - Vital Signs Vital signs: Vital Signs Temp 98.3 F 01/30/21 10:00 Pulse 66 01/30/21 10:00 Resp 17 01/30/21 10:00 BP 135/67 01/30/21 10:00 Pulse Ox 97 01/30/21 10:00 Intake & Output 01/29/21 01/30/21 01/30/21 18:59 06:59 18:59 Output Total 500 800 Balance -500 -800 Output: Urine 500 800 Other: Voiding Method External Catheter External Catheter # Voids 1 - Exam GENERAL EXAM: Alert, pleasant, oriented to self and place and time, 85-year-old white female, frail looking, on 4 L of oxygen she sat 97% patient is complaining of abdominal pain, but abdomen is soft, nontender nausea vomiting or diarrhea. HEAD: Normocephalic/atraumatic. EYES: Normal reaction of pupils, equal size. Conjunctiva pink, sclera white. NOSE: Clear with pink turbinates. THROAT: No erythema or exudates. NECK: No masses, no JVD, no thyroid enlargement, no adenopathy. CHEST: No chest wall deformity. Symmetrical expansion. LUNGS: Equal air entry with diffuse coarse inspiratory crackles throughout the lung carranza CVS: Regular rate and rhythm, normal S1 and S2, no gallops, no murmurs, no rubs ABDOMEN: Soft, nontender. No hepatosplenomegaly, normal bowel sounds, no guarding or rigidity. EXTREMITIES: No clubbing, no edema, no cyanosis, 2+ pulses and upper and lower extremities. MUSCULOSKELETAL: Muscle strength and tone normal. SPINE: No scoliosis or deformity SKIN: No rashes CENTRAL NERVOUS SYSTEM: Alert and oriented -3. No focal deficits, tone is normal in all 4 extremities. PSYCHIATRIC: Alert and oriented -3. Appropriate affect. Intact judgment and insight. - Labs CBC & Chem 7: 01/29/21 06:36 01/29/21 06:36 Labs: Abnormal Lab Results - Last 24 Hours (Table) 01/29/21 01/29/21 01/29/21 Range/Units 11:52 16:40 20:32 POC Glucose (mg/dL) 239 H 293 H 196 H (75-99) mg/dL 01/30/21 Range/Units 07:01 POC Glucose (mg/dL) 194 H (75-99) mg/dL Microbiology - Last 24 Hours (Table) 01/26/21 20:25 Urine Culture - Final Urine,Voided Methicillin resist S. aureus Assessment and Plan Plan: Assessment: #1. Acute on chronic hypoxic respiratory failure related to acute COVID-19 related pneumonia. Patient presents to the emergency department on 01/26/2021 with 1 day history of fever, a few day history of increasing cough and shortness of breath. She tested positive for COVID-19 per PCR test, influenza and B screen and RSV screen were negative. She is within the window for Remdesivir we'll start her on it today on 01/27/2021 #2. History of right upper lobe lung mass, patient underwent navigational bronchoscopy and EBUS of a subcarinal lymph node, negative biopsies #3. Previous history of breast cancer #4. 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 Patient has some pulmonary fibrosis with lower lungs bronchiectasis on the CT chest #5. Acute urinary tract infection, was started on Rocephin #6. Paroxysmal atrial fibrillation not on any anticoagulation on a chronic basis #7. Previous episodes of pneumonia #8. History of MRSA infection in the foot #9. Hypertension #10. Dementia #11. Former smoker #12. Osteoarthritis with previous orthopedic surgeries #13. Acute urinary tract infection related to MRSA, was started initially on Macrobid, will give a dose of vancomycin and place ID consult on Plan: Breathing seems to have improved, patient remains on 4 L of oxygen, We will cut back the steroids to 40 mg every 8 hours Continues on Remdesivir, today is day 4 of treatment Continue prophylactic dose Lovenox, and GI prophylaxis Urine culture showed MRSA, we will give the patient was of vancomycin And consult Dr. Renner from ID service for antibiotic management Is complaining of some right upper quadrant abdominal pain, but abdomen is soft, Will monitor her symptoms Cbc, CMP, Amylase, lipase May need imaging if abd pain persists I performed a history & physical examination of the patient and discussed their management with my nurse practitioner, Pao Wasserman. I reviewed the nurse practitioner's note and agree with the documented findings and plan of care. Lung sounds are positive for diffuse crackles throughout the lung carranza. The findings and the impression was discussed with the patient. I attest to the documentation by the nurse practitioner. Time with Patient: Less than 30
[2021-01-30 11:13] LABS: Glucose,Whole Blood 194 mg/dL (75-99)
[2021-01-30 11:40] LABS: Basophils % (A) 0 %; Eosinophils % (A) 0 %; HCT 35.7 % (34.0-46.0); HGB 11.3 gm/dL (11.4-16.0); Hypochromasia Slight; Lymphocytes # (A) 0.6 k/uL (1.0-4.8); Lymphocytes % (A) 8 %; MCH 29.5 pg (25.0-35.0); MCHC 31.5 g/dL (31.0-37.0); MCV 93.7 fL (80.0-100.0); Mean Platelet Volume 8.1; Monocytes # (A) 0.4 k/uL (0-1.0); Monocytes % (A) 5 %; Neutrophils # (A) 7.1 k/uL (1.3-7.7); Neutrophils % (A) 86 %; Platelet Count 263 k/uL (150-450); RBC 3.81 m/uL (3.80-5.40); RDW 14.6 % (11.5-15.5); WBC 8.3 k/uL (3.8-10.6)
[2021-01-30 12:10] LABS: ALT 14 U/L (4-34); AST 24 U/L (14-36); African American GFR (CKD) >90 (>60 ml/min/1.73 sqM); Albumin 3.1 g/dL (3.5-5.0); Alkaline Phosphatase 47 U/L (38-126); Amylase 36 U/L (30-110); Anion Gap 9 mmol/L; Blood Urea Nitrogen 23 mg/dL (7-17); Calcium 8.6 mg/dL (8.4-10.2); Carbon Dioxide 24 mmol/L (22-30); Chloride 104 mmol/L (98-107); Globulin 3.1 g/dL; Glucose 189 mg/dL (74-99); Lipase 27 U/L (23-300); Non-African American GFR(CKD) 86 (>60 ml/min/1.73 sqM); Sodium 137 mmol/L (137-145); Total Bilirubin 0.3 mg/dL (0.2-1.3); Total Protein 6.2 g/dL (6.3-8.2)
[2021-01-30] MEDS: REMDESIVIR 100 MG in SODIUM CHLORIDE 0.9% 250 ML IVPB SCH (12:10)
[2021-01-30 16:28] LABS: Glucose,Whole Blood 174 mg/dL (75-99)
[2021-01-30] MEDS: methylPREDNISolone SOD SUCCI 40 MG/ML 1 ML VIAL IV SCH ×2 (17:20→23:58)
--- NOTE | 2021-01-30 20:19 | P.PN ---
Progress Note - Text Progress Note Date: 01/30/21 Hospital course: This is a pleasant 55 years old female with past medical history of COPD, Diabe wilda Mellitus, GERD, Hypertension, Memory Impairment,hx. of frequent pneumonia- last time in September, back pain, neuropathy, breast cancer, paroxymal atrial fibrillation not on anticoagulation. Patient is poor historian, she knows she is in the hospital but she could not tell which hospital which city. She could not tell a year or the person and she looks disoriented to her illness. She states she came because of dyspnea but she could not specify for how long. Also she is complaining of from some cough and phlegm but no chest pain at rest, she has some discomfort with coughing. She denies GI or urinary symptoms for me. No diarrhea or vomiting. No abdominal pain. No dysuria or urgency. No headache dizziness or weakness. No numbness. She denies smoking, alcohol or illicit drugs. The presentation she had a fever of 101.6, she's 94% on 4 L oxygen via nasal cannula. On admission she was saturating 88% on 2 L. tested positive for COVID- 19 January 28: On 4 L of nasal cannula. Eating some. Decreased appetite. Some cough and shortness of breath. January 29: Some cough and shortness breath. Son is visiting. 4 L of oxygen. Oral intake better about 75%. January 30: Oral intake. Able. Diet. Shortness of breath. On 4 L of nasal cannula. On IV Remdesivir. Solu-Medrol. Review of systems: Was done for constitutional, cardiovascular, GI, pulmonary. relevant finding as above Active Medications Acetaminophen (Acetaminophen Tab 325 Mg Tab) 650 mg PO Q6HR PRN PRN Reason: Mild Pain or Fever > 100.5 Hydrocodone Bitart/Acetaminophen (Hydrocodone/Apap 5-325mg 1 Each Tab) 1 each PO Q8HR PRN PRN Reason: Pain Last Admin: 01/30/21 18:08 Dose: 1 each Documented by: Albuterol Sulfate (Albuterol Hfa Inhaler) 2 puff INHALATION RT-QID [facility] Last Admin: 01/30/21 16:59 Dose: 2 puff Documented by: Anastrozole (Anastrozole 1 Mg Tab) 1 mg PO DAILY [facility] Last Admin: 01/30/21 07:55 Dose: 1 mg Documented by: Ascorbic Acid (Ascorbic Acid 500 Mg Tab) 1,000 mg PO DAILY [facility] Last Admin: 01/30/21 07:55 Dose: 1,000 mg Documented by: Cholecalciferol (Cholecalciferol 25 Mcg (1000 Iu) Tablet) 25 mcg PO DAILY [facility] Last Admin: 01/30/21 07:55 Dose: 25 mcg Documented by: Enoxaparin Sodium (Enoxaparin 40 Mg/0.4 Ml Syringe) 40 mg SQ DAILY [facility] Last Admin: 01/30/21 07:55 Dose: 40 mg Documented by: Famotidine (Famotidine 20 Mg Tab) 20 mg PO BID [facility] Last Admin: 01/30/21 07:55 Dose: 20 mg Documented by: Gabapentin (Gabapentin 300 Mg Cap) 600 mg PO TID [facility] Last Admin: 01/30/21 17:20 Dose: 600 mg Documented by: Sodium Chloride (Saline 0.9%) 1,000 mls @ 20 mls/hr IV .Q24H [facility] Last Admin: 01/30/21 01:02 Dose: Not Given Documented by: Remdesivir 100 mg/ Sodium (Chloride) 250 mls @ 250 mls/hr IVPB DAILY@1300 [facility] Stop: 01/31/21 13:59 Last Admin: 01/30/21 12:10 Dose: 250 mls/hr Documented by: Insulin Aspart (Insulin Aspart (Novolog) 100 Unit/Ml Vial) 0 unit SQ ACHS [facility]; Protocol Last Admin: 01/30/21 17:21 Dose: 2 unit Documented by: Metformin HCl (Metformin 500 Mg Tab) 500 mg PO BID-W/MEALS [facility] Last Admin: 01/30/21 17:20 Dose: 500 mg Documented by: Methylprednisolone Sodium Succinate (Methylprednisolone Sod Succi 40 Mg/Ml 1 Ml Vial) 40 mg IV Q8HR [facility] Last Admin: 01/30/21 17:20 Dose: 40 mg Documented by: Naloxone HCl (Naloxone 0.4 Mg/Ml 1 Ml Vial) 0.2 mg IV Q2M PRN PRN Reason: Opioid Reversal Nitrofurantoin Macrocrystals (Nitrofurantoin Monohyd/M-Cryst 100 Mg Cap) 100 mg PO BID [facility] Last Admin: 01/30/21 07:55 Dose: 100 mg Documented by: Ondansetron HCl (Ondansetron 4 Mg/2 Ml Vial) 4 mg IVP Q8HR PRN PRN Reason: Nausea And Vomiting Vitamin E (Vitamin E (Dl,Tocopheryl Acet) 400 Unit (180 Mg) Cap) 400 unit PO DAILY [facility] Last Admin: 01/30/21 07:55 Dose: 400 unit Documented by: Zinc Sulfate (Zinc Sulfate 220 Mg Cap) 220 mg PO DAILY [facility] Last Admin: 01/30/21 07:55 Dose: 220 mg Documented by: On examination: VITAL SIGNS: 98.2, 71, 18, 1 62 x 66, 97% on 4 L GENERAL APPEARANCE: Reclining bed, awake, RESPIRATORY: Respiratory effort increased NEURO: Cranial nerves grossly intact. Moving all 4 limbs PSYCHIATRY: Answering some questions Rest of the exam per pulmonary and nursing INVESTIGATIONS, reviewed in the clinical context: January 30: White count 8.3 hemoglobin 11.3 potassium 4 creatinine 0.5 to January 29: White count 5.1 hemoglobin 11.7 d-dimer 1.78 potassium 4.7 creatinine 0.56 CRP 5.6 D-dimer 1.86 Sodium 132 potassium 4.8 creatinine 0.55 B12 797 folate 16.6 procalcitonin 0.08 TSH 2.3 UA positive for leukoesterase WBC WBC 11 hemoglobin 11.7 platelets 250 Assessment and plan: -Acute severe COVID 19 pneumonitis: Slow to respond IV Solu-Medrol, IV Remdesivir, -Acute hypoxic respiratory failure from COVID 19 pneumonitis: Slow to respond On 4 L of nasal cannula -Acute UTI with cystitis, from MRSA Nitrofurantoin 100 mg twice a day -Acute COPD exacerbation Solu-Medrol. Ventolin HFA -Diabetes mellitus type 2, on oral hypoglycemic, uncontrolled hyperglycemia from steroids Metformin 500 mg 3 times a day. Follow Accu-Cheks -GERD -Cognitive impairment -Peripheral neuropathy from diabetes Neurontin 600 mg 3 times a day -Mild hyponatremia Encourage oral intake IV Remdesivir. Oxygen 4 L. IV Solu-Medrol. Bronchodilators. nitrofurantoin.. Incentive spirometry.
[2021-01-30 20:48] LABS: Glucose,Whole Blood 252 mg/dL (75-99)
[2021-01-30] MEDS ORDERED: VANCOMYCIN IV PER PHARMACY 1 EACH MISC MISCELLANE PRN (23:52)
--- NOTE | 2021-01-30 23:55 | P.CONS ---
History of Present Illness - Reason for Consult Consult date: 01/30/21 MRSA UTI Requesting physician: Pao Wasserman - Chief Complaint Fever x 1 day - History of Present Illness History of present illness : Patient is 86-year female presenting to the ER 5 days ago for evaluation of a fever. The patient did develop fever the morning of presentation to the hospital patient was complaining of bilateral feet pain and did not have any other symptoms on presentation to the hospital patient did have a fever of 101.62 form height patient subsequently did not have any fever patient did have white count of 11,000 with a left shift subsequent white count has normalized kidney function has been normal liver enzymes has been normal patient did have a positive UA with large leukocyte esterase and 75 WBC patient also have a positive Covid test urine culture has been finalized with MRSA that has prompted this infectious disease consultation patient has not received any antibiotic therapy during this admission patient was hypoxic on admission to the hospital and is currently on supplemental 4 L nasal cannula, patient underwent good historian as per respiratory symptoms of consult and the patient did not have any [place] catheter placed during this admission Review of system: CONSTITUTIONAL: Positive for weakness along with the fever. EYES: No complaint. ENT: No complaint. RESPIRATORY: As per history of present illness CARDIOVASCULAR: No complaint. GENITOURINARY: As per history of present illness. GASTROINTESTINAL: No complaint. MUSCULOSKELETAL: No complaint. INTEGUMENTARY: No complaint. PSYCHOLOGIC: No complaint. ENDOCRINE: No complaint. NEUROLOGIC: No complaint. Past medical history : Reviewed, documented below Past surgical history : Reviewed, documented below Social history: Reviewed, documented below Medications: Reviewed, as documented below EXAMINATION: Vital sigans= Reviewed and documented below GENERAL DESCRIPTION: Elderly female lying in bed, no distress. No tachypnea or accessory muscle of respiration use. HEENT: Shows Pallor , no scleral icterus. Oral mucous membrane is dry. NECK: Trachea central, no thyromegaly. LUNGS: Unlabored breathing. Decreased breath sound the base. No wheeze or crackle. HEART: S1, S2, regular rate and rhythm. ABDOMEN: Soft, no tenderness , guarding or rigidity EXTREMITIES: No edema of feet. SKIN: No rash, no masses palpable. NEUROLOGICAL: The patient is awake, alert, oriented x2, mood and affect normal. LABS AND RADIOLOGY: Reviewed results see below Assessment : 1-patient with a positive urine culture with MRSA and this patient did have a positive UA however the patient evaluated clear as per as her urine symptomatology is concerning with a question of mild cystitis versus asymptomatic bacteriuria 2-COVID-19 infection Plan: 1-we will obtain a clean-catch UA and culture 2-we will empirically add vancomycin while waiting for the repeat UA to be completed 3-gentle IV fluid We will follow on clinical condition and cultures to further adjust medication if needed Thank you for this consultation we will follow the patient along with you Past Medical History Past Medical History: Atrial Fibrillation, Cancer, COPD, Diabetes Mellitus, GERD/Reflux, Hypertension, Memory Impairment, Pneumonia Additional Past Medical History / Comment(s): hx. of frequent pneumonia-last time in September, back pain, neuropathy, breast cancer, paroxymal atrial fibrillation from one of the medications she is allergic to but her daughter is unsure of which one History of Any Multi-Drug Resistant Organisms: MRSA Year Discovered:: 2009 MDRO Source:: foot Past Surgical History: Cholecystectomy, Hysterectomy, Joint Replacement, Orthopedic Surgery, Tubal Ligation Additional Past Surgical History / Comment(s): bilateral hip replaced, ankle surgery, bilateral cataract surgery, lower back surgery, planned for lung biopsy 11/15/20, gallstones removed Past Anesthesia/Blood Transfusion Reactions: Previous Problems w/ Anesthesia Additional Past Anesthesia/Blood Transfusion Reaction / Comm: slow to wake up post anesthesia Past Psychological History: No Psychological Hx Reported Smoking Status: Former smoker Past Alcohol Use History: None Reported Past Drug Use History: None Reported - Past Family History Brother(s) Family Medical History: Cancer Father Family Medical History: Cancer Medications and Allergies Home Medications Medication Instructions Recorded Confirmed Type Anastrozole [Arimidex] 1 mg PO DAILY 08/30/20 01/26/21 History Gabapentin [Neurontin] 600 mg PO TID 08/30/20 01/26/21 History Vitamin E (Dl,Tocopheryl Acet) 400 unit PO DAILY 08/30/20 01/26/21 History [Vitamin E (400 Iu = 180 mg)] metFORMIN HCL ER [Glucophage XR] 500 mg PO BID-W/MEALS 08/30/20 01/26/21 History Cholecalciferol [Vitamin D3 (25 25 mcg PO DAILY 11/02/20 01/26/21 History Mcg = 1000 Iu)] Acetaminophen Tab [Tylenol] 500 - 1,000 mg PO Q4HR PRN 11/26/20 01/26/21 History Ipratropium-Albuterol Nebulize 3 ml INHALATION RT-Q6H PRN 11/26/20 01/26/21 History [Duoneb 0.5 mg-3 mg/3 ml Soln] [place]-3 Fatty Acids/Fish Oil [Fish 1 cap PO DAILY 11/26/20 01/26/21 History Oil 1,000 mg Softgel] Furosemide [Lasix] 20 mg PO DAILY 01/26/21 01/26/21 History HYDROcodone/APAP 5-325MG [[place] 1 tab PO Q8HR PRN 01/26/21 01/26/21 History 5-325] Allergies Allergy/AdvReac Type Severity Reaction Status Date / Time trimethoprim [From Bactrim] Allergy Unknown Unknown Verified 01/26/21 19:12 zolpidem [From Ambien] Allergy Unknown Unknown Verified 01/26/21 19:12 adhesive tape Allergy skin peels Verified 01/26/21 19:12 off,dtr states "paper tape is ok" clindamycin Allergy Unknown Verified 01/26/21 19:12 duloxetine [From Cymbalta] Allergy Unknown Verified 01/26/21 19:12 fluoxetine [From Prozac] Allergy Unknown Verified 01/26/21 19:12 haloperidol Allergy Unknown Verified 01/26/21 19:12 hydroxyzine [From Vistaril] Allergy Unknown Verified 01/26/21 19:12 levofloxacin [From Levaquin] Allergy Unknown Verified 01/26/21 19:12 lorazepam [From Ativan] Allergy Unknown Verified 01/26/21 19:12 morphine Allergy Unknown Verified 01/26/21 19:12 Penicillins Allergy Unknown Verified 01/26/21 19:12 pregabalin [From Lyrica] Allergy Unknown Verified 01/26/21 19:12 streptomycin Allergy Unknown Verified 01/26/21 19:12 Sulfa (Sulfonamide Allergy Unknown Verified 01/26/21 19:12 Antibiotics) sulfamethoxazole Allergy Unknown Verified 01/26/21 19:12 [From Bactrim] Physical Exam Vitals: Vital Signs Temp Pulse Resp BP Pulse Ox 01/30/21 14:35 98.2 F 71 18 162/66 97 01/30/21 10:00 98.3 F 66 17 135/67 97 01/30/21 06:00 97.8 F 83 18 175/74 92 L 01/30/21 02:00 97.5 F L 50 L 124/50 99 01/29/21 22:00 97.5 F L 65 18 155/79 97 01/29/21 20:00 18 01/29/21 18:00 98.4 F 72 16 134/72 94 L Intake and Output 01/30/21 01/30/21 01/30/21 06:59 14:59 22:59 Output Total 400 Balance -400 Output: Urine 400 Other: # Voids 1 Results CBC & Chem 7: 01/30/21 11:20 01/30/21 11:20 Labs: Abnormal Lab Results - Last 24 Hours (Table) 01/29/21 01/29/21 01/30/21 Range/Units 16:40 20:32 07:01 Hgb (11.4-16.0) gm/dL Lymphocytes # (1.0-4.8) k/uL BUN (7-17) mg/dL Glucose (74-99) mg/dL POC Glucose (mg/dL) 293 H 196 H 194 H (75-99) mg/dL Total Protein (6.3-8.2) g/dL Albumin (3.5-5.0) g/dL 01/30/21 01/30/21 01/30/21 Range/Units 11:08 11:20 11:20 Hgb 11.3 L (11.4-16.0) gm/dL Lymphocytes # 0.6 L (1.0-4.8) k/uL BUN 23 H (7-17) mg/dL Glucose 189 H (74-99) mg/dL POC Glucose (mg/dL) 194 H (75-99) mg/dL Total Protein 6.2 L (6.3-8.2) g/dL Albumin 3.1 L (3.5-5.0) g/dL
[2021-01-31] MEDS ORDERED: VANCOMYCIN 1,500 MG in SODIUM CHLORIDE 0.9% 250 ML IVPB ONE (01:00)
[2021-01-31] MEDS: SODIUM CHLORIDE 0.9% 1,000 ML IV SCH (01:18)
[2021-01-31 01:25] LABS: Appearance,Urine Clear (Clear); Bilirubin,Urine Negative (Negative); Blood,Urine Negative (Negative); Color,Urine Yellow; Glucose,Urine (UA) Negative (Negative); Ketones,Urine Trace (Negative); Leukocyte Esterase,Urine Negative (Negative); Nitrite,Urine Negative (Negative); Protein,Urine Trace (Negative); Specific Gravity,Urine 1.017 (1.001-1.035); Urobilinogen,Urine <2.0 mg/dL (<2.0)
[2021-01-31] MEDS: HYDROcodone/APAP 5-325MG 1 EACH TAB PO PRN (06:24)
[2021-01-31 06:57] VITALS: TEMP 97.8
[2021-01-31 07:34] LABS: Glucose,Whole Blood 206 mg/dL (75-99)
[2021-01-31] MEDS: INSULIN ASPART (NovoLOG) 100 UNIT/ML VIAL SQ SCH ×2 (08:09→12:02)
[2021-01-31] MEDS: ANASTROZOLE 1 MG TAB PO SCH (08:10)
[2021-01-31] MEDS: ZINC SULFATE 220 MG CAP PO SCH (08:10)
[2021-01-31] MEDS: ASCORBIC ACID 500 MG TAB PO SCH (08:10)
[2021-01-31] MEDS: methylPREDNISolone SOD SUCCI 40 MG/ML 1 ML VIAL IV SCH (08:10)
[2021-01-31] MEDS: NITROFURANTOIN MONOHYD/M-CRYST 100 MG CAP PO SCH (08:10)
[2021-01-31] MEDS: GABAPENTIN 300 MG CAP PO SCH (08:10)
[2021-01-31] MEDS: VITAMIN E (DL,TOCOPHERYL ACET) 400 UNIT (180 MG) CAP PO SCH (08:10)
[2021-01-31] MEDS: FAMOTIDINE 20 MG TAB PO SCH (08:10)
[2021-01-31] MEDS: metFORMIN 500 MG TAB PO SCH (08:10)
[2021-01-31] MEDS: CHOLECALCIFEROL 25 MCG (1000 IU) TABLET PO SCH (08:10)
[2021-01-31] MEDS: ENOXAPARIN 40 MG/0.4 ML SYRINGE SQ SCH (08:10)
[2021-01-31] MEDS: ALBUTEROL HFA INHALER INHALATION SCH ×2 (09:00→12:50)
[2021-01-31 10:34] VITALS: BP 163/79; PULSE 59; RESP 18
[2021-01-31 11:28] LABS: Glucose,Whole Blood 215 mg/dL (75-99)
[2021-01-31] MEDS: REMDESIVIR 100 MG in SODIUM CHLORIDE 0.9% 250 ML IVPB SCH (12:02)
[2021-01-31] MEDS ORDERED: VANCOMYCIN 1,500 MG in SODIUM CHLORIDE 0.9% 250 ML IVPB SCH (16:00)
[2021-01-31] MEDS ORDERED: VANCOMYCIN 1,250 MG in SODIUM CHLORIDE 0.9% 250 ML IVPB SCH (17:00)
--- NOTE | 2021-01-31 22:35 | P.DS ---
Providers Date of admission: 01/26/21 20:48 Expected date of discharge: 01/31/21 Attending physician: Daniel Kelly Consults: 01/26/21 21:29 Consult Physician Routine Consulting Provider: Vinicius Tamayo Consult Reason/Comments: COVID+, hypoxia Do you want consulting provider notified?: Yes 01/30/21 10:50 Consult Physician Routine Consulting Provider: Alexsandra Renner Consult Reason/Comments: MRSA UTI, COVID Do you want consulting provider notified?: Yes Primary care physician: [facility] Course: Hospital course: This is a pleasant 55 years old female with past medical history of COPD, Diabetes Mellitus, GERD, Hypertension, Memory Impairment,hx. of frequent pneumonia-last time in September, back pain, neuropathy, breast cancer, paroxymal atrial fibrillation not on anticoagulation. Patient is poor historian, she knows she is in the hospital but she could not tell which hospital which city. She could not tell a year or the person and she looks disoriented to her illness. She states she came because of dyspnea but she could not specify for how long. Also she is complaining of from some cough and phlegm but no chest pain at rest, she has some discomfort with coughing. She denies GI or urinary symptoms for me. No diarrhea or vomiting. No abdominal pain. No dysuria or urgency. No headache dizziness or weakness. No numbness. She denies smoking, alcohol or illicit drugs. The presentation she had a fever of 101.6, she's 94% on 4 L oxygen via nasal cannula. On admission she was saturating 88% on 2 L. tested positive for COVID- 19. Given Remdesivir. MRSA UTI. Today: Oral intake fair. Down to 2 L of nasal cannula. Will be going home with her daughter. Prednisone taper. Complete a course of Macrobid. 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 Discussion and discharge planning more than 35 minutes Consultation: Dr. Renner from ID Dr. Tamayo from pulmonary On examination: VITAL SIGNS: 97.8, 59, 18, 163 with 79, 96% on 2 L GENERAL APPEARANCE: Reclining bed, awake, comfortable RESPIRATORY: Respiratory effort normal NEURO: Cranial nerves grossly intact. Moving all 4 limbs PSYCHIATRY: Answering some questions Rest of the exam per pulmonary and nursing INVESTIGATIONS, reviewed in the clinical context: January 31: D-dimer 1.59 CRP to January 30: White count 8.3 hemoglobin 11.3 potassium 4 creatinine 0.5 to January 29: White count 5.1 hemoglobin 11.7 d-dimer 1.78 potassium 4.7 creatinine 0.56 CRP 5.6 D-dimer 1.86 Sodium 132 potassium 4.8 creatinine 0.55 B12 797 folate 16.6 procalcitonin 0.08 TSH 2.3 UA positive for leukoesterase WBC WBC 11 hemoglobin 11.7 platelets 250 Assessment and plan: -Acute severe COVID 19 pneumonitis: Improved IV Solu-Medrol, IV Remdesivir, Discharged home on prednisone taper -Acute hypoxic respiratory failure from COVID 19 pneumonitis: Better On 2 L of nasal cannula -Acute UTI with cystitis, from MRSA Nitrofurantoin 100 mg twice a day-5 more days -Acute COPD exacerbation 200. Prednisone taper -Diabetes mellitus type 2, on oral hypoglycemic, uncontrolled hyperglycemia from steroids Metformin 500 mg 3 times a day. Follow Accu-Cheks -GERD -Cognitive impairment -Peripheral neuropathy from diabetes Neurontin 600 mg 3 times a day -Mild hyponatremia Encourage oral intake Disposition: Home Plan - Discharge Summary Discharge Rx Participant: No New Discharge Prescriptions: New predniSONE 10 mg PO DAILY #30 tab Nitrofurantoin Monohyd/M-Cryst [Macrobid] 100 mg PO BID #14 cap Zinc Sulfate [Orazinc] 220 mg PO DAILY #30 cap Famotidine [Pepcid] 20 mg PO BID #60 tab Ascorbic Acid [Vitamin C] 1,000 mg PO DAILY #60 tab Continue Gabapentin [Neurontin] 600 mg PO TID Cholecalciferol [Vitamin D3 (25 Mcg = 1000 Iu)] 25 mcg PO DAILY Ipratropium-Albuterol Nebulize [Duoneb 0.5 mg-3 mg/3 ml Soln] 3 ml INHALATION RT-Q6H PRN PRN Reason: Shortness Of Breath [place]-3 Fatty Acids/Fish Oil [Fish Oil 1,000 mg Softgel] 1 cap PO DAILY Acetaminophen Tab [Tylenol] 500 - 1,000 mg PO Q4HR PRN PRN Reason: Fever And/ Or Pain HYDROcodone/APAP 5-325MG [[place] 5-325] 1 tab PO Q8HR PRN PRN Reason: Pain metFORMIN HCL ER [Glucophage XR] 500 mg PO BID-W/MEALS Vitamin E (Dl,Tocopheryl Acet) [Vitamin E (400 Iu = 180 mg)] 400 unit PO DAILY Anastrozole [Arimidex] 1 mg PO DAILY Discontinued Furosemide [Lasix] 20 mg PO DAILY Discharge Medication List Anastrozole [Arimidex] 1 mg PO DAILY 08/30/20 [History] Gabapentin [Neurontin] 600 mg PO TID 08/30/20 [History] Vitamin E (Dl,Tocopheryl Acet) [Vitamin E (400 Iu = 180 mg)] 400 unit PO DAILY 08/30/20 [History] metFORMIN HCL ER [Glucophage XR] 500 mg PO BID-W/MEALS 08/30/20 [History] Cholecalciferol [Vitamin D3 (25 Mcg = 1000 Iu)] 25 mcg PO DAILY 11/02/20 [History] Acetaminophen Tab [Tylenol] 500 - 1,000 mg PO Q4HR PRN 11/26/20 [History] Ipratropium-Albuterol Nebulize [Duoneb 0.5 mg-3 mg/3 ml Soln] 3 ml INHALATION RT-Q6H PRN 11/26/20 [History] [place]-3 Fatty Acids/Fish Oil [Fish Oil 1,000 mg Softgel] 1 cap PO DAILY 11/26/20 [History] HYDROcodone/APAP 5-325MG [[place] 5-325] 1 tab PO Q8HR PRN 01/26/21 [History] Ascorbic Acid [Vitamin C] 1,000 mg PO DAILY #60 tab 01/31/21 [Rx] Famotidine [Pepcid] 20 mg PO BID #60 tab 01/31/21 [Rx] Nitrofurantoin Monohyd/M-Cryst [Macrobid] 100 mg PO BID #14 cap 01/31/21 [Rx] Zinc Sulfate [Orazinc] 220 mg PO DAILY #30 cap 01/31/21 [Rx] predniSONE 10 mg PO DAILY #30 tab 01/31/21 [Rx] Follow up Appointment(s)/Referral(s): Vinicius Tamayo MD [STAFF PHYSICIAN] - 02/28/21 2:15 pm Aubrey Green MD [Primary Care Provider] - 1-2 days (Unable to get throught to office. Please make own appointment. ) [facility] [NON-STAFF] - As Needed Patient Instructions/Handouts: Coronavirus Disease 2019 (COVID-19) Discharge Disposition: HOME SELF-CARE
== END 2021-01-31 14:07 | disposition home or self-care (01) | DRG 177 ==
LOC: EC 18:06 → 4SSUR 20:48
PROVIDERS: ADMIT Hospitalist; ATTEND Hospitalist
PROC: XW033E5 Introduction of Remdesivir Anti-infective into Peripheral Vein, Percutaneous Approach, New Technology Group 5 (ICD-10-PCS; principal; 2021-01-26)
DX: U07.1 COVID-19 (principal); J12.82 Pneumonia due to coronavirus disease 2019; J96.21 Acute and chronic respiratory failure with hypoxia; E87.1 Hypo-osmolality and hyponatremia; J47.0 Bronchiectasis with acute lower respiratory infection; B95.62 Methicillin resistant Staphylococcus aureus infection as the cause of diseases classified elsewhere; E11.42 Type 2 diabetes mellitus with diabetic polyneuropathy; E11.65 Type 2 diabetes mellitus with hyperglycemia; T38.0X5A Adverse effect of glucocorticoids and synthetic analogues, initial encounter; F03.90 Unspecified dementia, unspecified severity, without behavioral disturbance, psychotic disturbance, mood disturbance, and anxiety; G89.29 Other chronic pain; I10 Essential (primary) hypertension; I48.0 Paroxysmal atrial fibrillation; J43.9 Emphysema, unspecified; J84.10 Pulmonary fibrosis, unspecified; K21.9 Gastro-esophageal reflux disease without esophagitis; M19.90 Unspecified osteoarthritis, unspecified site; N30.90 Cystitis, unspecified without hematuria; M54.9 Dorsalgia, unspecified; Z99.81 Dependence on supplemental oxygen; Z79.811 Long term (current) use of aromatase inhibitors; Z79.84 Long term (current) use of oral hypoglycemic drugs; Z79.899 Other long term (current) drug therapy; Z85.3 Personal history of malignant neoplasm of breast; Z86.14 Personal history of Methicillin resistant Staphylococcus aureus infection; Z87.891 Personal history of nicotine dependence; Z90.710 Acquired absence of both cervix and uterus; Z96.643 Presence of artificial hip joint, bilateral; Z90.49 Acquired absence of other specified parts of digestive tract; Z98.51 Tubal ligation status; Z98.890 Other specified postprocedural states; Z98.42 Cataract extraction status, left eye; Z98.41 Cataract extraction status, right eye; Z88.1 Allergy status to other antibiotic agents; Z88.5 Allergy status to narcotic agent; Z88.0 Allergy status to penicillin; Z88.2 Allergy status to sulfonamides; Z88.8 Allergy status to other drugs, medicaments and biological substances
CPT/HCPCS: 36415; 71045; 71046; 80048; 80053; 81001; 81003; 82150; 82607; 82746; 83605; 83615; 83690; 83880; 84145; 84443; 84484; 85025; 85379; 86140; 87077; 87086; 87186; 87636; 93005; 93970; 94640; 96374; 96375; 99285

== ENCOUNTER → 2021-06-06 | Outpatient (CLI) | payer MEDICARE ==
[2021-06-06 11:31] LABS: African American GFR (CKD) >90 (>60 ml/min/1.73 sqM); Blood Urea Nitrogen 10 mg/dL (7-17); Non-African American GFR(CKD) 85 (>60 ml/min/1.73 sqM)
--- NOTE | 2021-06-06 14:16 | CT ---
EXAMINATION TYPE: CT ChestAbdPelvis w con DATE OF EXAM: 06/06/2021 COMPARISON: PET/CT 10/01/2020 CT chest 11/30/2020 HISTORY: Breast CA CT DLP: 1260 mGycm Automated exposure control for dose reduction was used. CONTRAST: CT scan of the chest, abdomen and pelvis is performed with Oral Contrast and with IV Contrast, patien t injected with 100 mL of Isovue 300. FINDINGS: LUNGS: The right upper lobe abnormal density which is pleural-based show some low attenuation and pradeep sures approximately 3.4 cm in AP dimension by 19 mm in transverse dimension and is increased in volum e slightly in the interval, somewhat more confluent. There is extensive bronchiectasis, areas of pleu ral thickening and some ill-defined soft tissue density in the left lower lobe greater than right jayleen ewhat more conspicuous than on prior exam. Subpleural cystic area present in the left upper lobe is a gain noted. Some basilar nodularity in the left is again seen. No pleural effusion. MEDIASTINUM: There is some right hilar adenopathy. Coronary artery calcifications are present. No per icardial effusion. Retrocaval pretracheal node is borderline enlarged AORTA: Atheromatous changes are present. OTHER: Umbilical hernia contains fat.. LIVER/GB: Pneumobilia changes are again seen. Gallbladder is absent.. PANCREAS: No significant abnormality is seen. SPLEEN: No significant abnormality is seen. ADRENALS: No significant abnormality is seen. KIDNEYS: Mild prominence of the right renal collecting system, extra renal pelvis is again seen. All retroaortic left renal vein is again noted REPRODUCTIVE ORGANS: Not seen BOWEL: No significant abnormality is seen. FREE AIR: No Free Air visible. ASCITES: None seen. RETROPERITONEAL ADENOPATHY: No retroperitoneal adenopathy is seen. LYMPH NODES: No greater than 1 cm abdominal or pelvic lymph nodes are appreciated. URINARY BLADDER: No significant abnormality is seen. PELVIC ADENOPATHY: None visualized. OSSEOUS STRUCTURES: Extensive artifact due to patient's hip arthroplasty change obscures detail with in the pelvis. IMPRESSION: Suspect some slight interval growth of patient's pleural-based mass the right upper lobe. Bronchiectasis, areas of indeterminate soft tissue within the lungs. Additional findings above.
--- NOTE | 2021-06-06 14:52 | NM ---
EXAMINATION TYPE: NM bone scan whole body DATE OF EXAM: 06/06/2021 COMPARISON: June 06, 2021 HISTORY: C50.412 breast ca Delayed whole-body scanning was performed following the injection of 23.1 mCi Tc 99m MDP. Images acq uired 3 hours post injection. FINDINGS: There is increased radiotracer accumulation involving the T10 vertebral segment. Metastatic disease i s not excluded. Radiographic correlation advised. Otherwise there is degenerative uptake involving th e shoulders, sternoclavicular joints, bilateral hips and left knee. Hip prostheses noted to be in mikey ce. IMPRESSION: There is increased radiotracer accumulation involving the T10 vertebral segment. Metastatic disease i s not excluded. Radiographic correlation advised.
== END | disposition home or self-care (01) ==
LOC: RADNMMAIN 10:11
PROVIDERS: ATTEND Internal Medicine Hematology & Oncology
DX: Z03.89 Encounter for observation for other suspected diseases and conditions ruled out (principal); C50.412 Malignant neoplasm of upper-outer quadrant of left female breast
CPT/HCPCS: 82565; 84520; 71260; 74177; 36415; 78306; A9503; Q9967